=== PATIENT | female | born 1950 | race Caucasian/White ===

== ENCOUNTER 2023-10-04 17:21 | Outpatient (CLI) | payer MEDICARE, SELFPAY | END 2023-10-04 17:22 | disposition home or self-care (01) | LOC: AMB 10-05 13:32 | PROVIDERS: PCP Family Medicine; Visit Provider Emergency Medicine Emergency Medical Services | DX: R53.1 Weakness (principal) | CPT/HCPCS: A0998 ==

== ENCOUNTER 2023-10-05 08:02 | Outpatient (CLI) | payer MEDICARE, SELFPAY | END 2023-10-05 08:03 | disposition home or self-care (01) | LOC: AMB 10-06 09:44 | PROVIDERS: PCP Family Medicine; Visit Provider Family Medicine | DX: M54.2 Cervicalgia (principal); R53.1 Weakness | CPT/HCPCS: A0425; A0427 ==

== ENCOUNTER 2023-10-05 08:37 | Inpatient (IN) | payer MEDICARE, SELFPAY ==
[2023-10-05] VITALS (23 sets, daily range): BP systolic 127–188; BP diastolic 48–86; PULSE 61–88; RESP 18–24; TEMP 36.7–37.5; O2SAT 92–100; BMI 41.6; BMI 43.9
--- NOTE | 2023-10-05 | CRLHL7_ITS ---
For Patients: As a result of the Century Cures Act, medical imaging exams and procedure reports are released immediately into your electronic medical record. You may view this report before your referring provider. If you have questions, please contact your health care provider. Indication: Falls. Unfocused gaze. Technique: MRI Head: Performed before and after IV gadolinium. MRA Head: Performed without IV contrast. MRA Neck: Performed before and after IV gadolinium. Contrast: 20 cc DOTAREM. Comparison: CT head from earlier on 10/05/2023. Findings: MRI Head: There is a large zone of T2 signal change and diffusion restriction involving the cortex of the right frontal operculum and anterior insula as well as the right basal ganglia and gao radiata, measuring at least 40 mm and typical for an acute infarct within the right MCA distribution. There is a 25 mm band of susceptibility artifact in the right lateral basal ganglia consistent with acute hemorrhage. There is no global mass effect at this time. Background moderate small vessel ischemic changes, moderate cerebral atrophy and mild atrophy of the cerebellum. No abnormal contrast enhancement involving the brain parenchyma, meninges, calvarium or skull base. Grossly normal flow voids are maintained in the directly imaged intracranial vascular structures. The craniovertebral junction is unremarkable, with a patent foramen magnum. Both temporal bones are clear. There is slight membrane thickening in the ethmoid paranasal sinuses. MRA Head: The study is considerably degraded by patient motion. Coupled with the gadolinium-enhanced images from the MRA neck exam, no proximal intracranial arterial occlusion/filling defect is definitively identified. No evidence for aneurysm or vascular malformation on this study. MRA Neck: Mild atheromatous change at both carotid bifurcations. No evidence for hemodynamically significant internal carotid artery stenosis by NASCET criteria. The cervical segments of both vertebral arteries are patent, but with potentially high-grade stenoses at the origin of both vessels. The visualized portions of the aortic arch, great vessel origins and proximal subclavian arteries are otherwise unremarkable. I called and discussed the findings of all [address] Haynes and Dr. Kendall on 10/05/2023 between 1325 and 1340 hours. Impression: MRI Head: 1. There is a large 40 mm acute infarction involving the frontal operculum, the insular lobe, the lateral basal ganglia and the gao radiata in the right hemisphere. 2. A 25 mm band of acute hemorrhage is seen in the right lateral basal ganglia. This could represent conglomerate petechial hemorrhage or an evolving space-occupying hemorrhage. 3. No global mass effect at this time. 4. Background small vessel ischemic changes and parenchymal atrophy. MRA Head: 1. Motion degraded exam. 2. No gross evidence for proximal intracranial arterial occlusion. MRA Neck: 1. No evidence for hemodynamically significant ICA stenosis by NASCET criteria. 2. No evidence for carotid or vertebral artery dissection in the neck. 3. Apparent stenoses at the origin of both vertebral arteries, potentially high-grade. Dictated by Shon Mccoy MD @ 10/05/2023 1:39:51 PM (Electronically Signed)
--- NOTE | 2023-10-05 09:17 | CRLHL7_ITS ---
For Patients: As a result of the Century Cures Act, medical imaging exams and procedure reports are released immediately into your electronic medical record. You may view this report before your referring provider. If you have questions, please contact your health care provider. INDICATION: Fall TECHNIQUE: CT cervical spine without contrast. COMPARISON: None. FINDINGS: Vertebrae: Reversal of expected cervical lordosis. Degenerative grade 1 anterolisthesis of C4 on C5. Mild retrolisthesis of C5 on 6. There are no fractures or suspicious bony lesions. Discs and facet joints: There are diffuse advanced degenerative changes in the disc spaces and facet joints. Moderate degenerative spinal canal stenosis at C5-C6. Multilevel neural foraminal stenosis muscle with moderate to severe bilaterally at C5-C6, and severe left at C6-7. Extraspinal findings: Paraspinous soft tissues are unremarkable. IMPRESSION: 1. No sign of acute cervical spine fracture. 2. Advanced multilevel degenerative spondylosis. 3. Moderate degenerative spinal canal stenosis at C5-C6. In the setting of trauma finding places patient wrist for cord contusion. If there is clinical concern for this consider MRI. Please note that all CT scans at this facility use dose modulation, iterative reconstruction, and/or weight-based dosing when appropriate to reduce radiation dose to as low as reasonably achievable. Dictated by Jose Enrique Gillis MD @ 10/05/2023 11:27:41 AM (Electronically Signed)
--- NOTE | 2023-10-05 09:17 | CRLHL7_ITS ---
For Patients: As a result of the Century Cures Act, medical imaging exams and procedure reports are released immediately into your electronic medical record. You may view this report before your referring provider. If you have questions, please contact your health care provider. INDICATION: fall TECHNIQUE: Head CT without contrast. COMPARISON: None. FINDINGS: Large hyperdensity centered within the right putamen and gao radiata with extension into the right centrum semiovale. There is also blurring of the right insular ribbon. Finding is age indeterminate as there is no prior comparisons but there is concern for acute/subacute infarct. There is subtle internal hyperdensity within the right putamen which may represent punctate petechial hemorrhagic conversion versus artifact. Periventricular and subcortical white matter lucencies likely relate to chronic microvascular ischemic changes. Mild global parenchymal volume loss. No extra-axial fluid collection. No midline shift. Patent basal cisterns. The visualized paranasal sinuses and mastoid air cells demonstrate no acute or significant findings. The visualized orbits are grossly unremarkable. No skull fractures. IMPRESSION: Large hyperdensity centered within the right putamen and gao radiata with extension into the right centrum semiovale. There is also blurring of the right insular ribbon. Finding is age indeterminate as there is no prior comparisons but there is concern for acute/subacute infarct. There is subtle internal hyperdensity within the right putamen which may represent punctate petechial hemorrhagic conversion versus artifact. Cannot exclude underlying lesion. Recommend MRI to further evaluate. Findings discussed with Dr. Sheffield at 11:20 am. Please note that all CT scans at this facility use dose modulation, iterative reconstruction, and/or weight-based dosing when appropriate to reduce radiation dose to as low as reasonably achievable. Dictated by Jose Enrique Gillis MD @ 10/05/2023 11:23:36 AM (Electronically Signed)
--- NOTE | 2023-10-05 09:20 | CRLHL7_ITS ---
For Patients: As a result of the Century Cures Act, medical imaging exams and procedure reports are released immediately into your electronic medical record. You may view this report before your referring provider. If you have questions, please contact your health care provider. Indication: Falls. Unfocused gaze. Technique: MRI Head: Performed before and after IV gadolinium. MRA Head: Performed without IV contrast. MRA Neck: Performed before and after IV gadolinium. Contrast: 20 cc DOTAREM. Comparison: CT head from earlier on 10/05/2023. Findings: MRI Head: There is a large zone of T2 signal change and diffusion restriction involving the cortex of the right frontal operculum and anterior insula as well as the right basal ganglia and gao radiata, measuring at least 40 mm and typical for an acute infarct within the right MCA distribution. There is a 25 mm band of susceptibility artifact in the right lateral basal ganglia consistent with acute hemorrhage. There is no global mass effect at this time. Background moderate small vessel ischemic changes, moderate cerebral atrophy and mild atrophy of the cerebellum. No abnormal contrast enhancement involving the brain parenchyma, meninges, calvarium or skull base. Grossly normal flow voids are maintained in the directly imaged intracranial vascular structures. The craniovertebral junction is unremarkable, with a patent foramen magnum. Both temporal bones are clear. There is slight membrane thickening in the ethmoid paranasal sinuses. MRA Head: The study is considerably degraded by patient motion. Coupled with the gadolinium-enhanced images from the MRA neck exam, no proximal intracranial arterial occlusion/filling defect is definitively identified. No evidence for aneurysm or vascular malformation on this study. MRA Neck: Mild atheromatous change at both carotid bifurcations. No evidence for hemodynamically significant internal carotid artery stenosis by NASCET criteria. The cervical segments of both vertebral arteries are patent, but with potentially high-grade stenoses at the origin of both vessels. The visualized portions of the aortic arch, great vessel origins and proximal subclavian arteries are otherwise unremarkable. Impression: MRI Head: 1. There is a large 40 mm acute infarction involving the frontal operculum, the insular lobe, the lateral basal ganglia and the gao radiata in the right hemisphere. 2. A 25 mm band of acute hemorrhage is seen in the right lateral basal ganglia. This could represent conglomerate petechial hemorrhage or an evolving space-occupying hemorrhage. 3. No global mass effect at this time. 4. Background small vessel ischemic changes and parenchymal atrophy. MRA Head: 1. Motion degraded exam. 2. No gross evidence for proximal intracranial arterial occlusion. MRA Neck: 1. No evidence for hemodynamically significant ICA stenosis by NASCET criteria. 2. No evidence for carotid or vertebral artery dissection in the neck. 3. Apparent stenoses at the origin of both vertebral arteries, potentially high-grade. Dictated by Shon Mccoy MD @ 10/05/2023 1:35:03 PM (Electronically Signed)
--- NOTE | 2023-10-05 09:23 | ED_ITS ---
HPI - General Adult General Chief complaint: Fall/Minor Trauma Stated complaint: fall Time Seen by Provider: 10/05/23 09:07 History of Present Illness HPI narrative: Patient is a 73-year-old female was brought in by ambulance for a fall today and could not get up in her bathroom. She reports that she laid there for many hours prior to her daughter coming this morning an ambulance being called. She has had trouble with balance recently and chronically. Yesterday she fell and had some back discomfort but that improved she has had a fusion in her low back. She did not want to come to the hospital, her daughter reports that she had some garbled speech in seemed little confused when this happened. That seemed to improve. She had no focal neurologic deficit although the balance issue has been persistent and intermittent over the last several months. She denies any chest pain, breathing problem, fever chills weakness. She has no chart record here. Her daughter reports that she is very sedentary. She reports she has had ?bad back in bed knees. 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 Dyslipidemia. Hypertension. Current meds include Tylenol, albuterol, aspirin, atorvastatin, bupropion, clopidogrel , Celebrex B12 Ferrous sulfate Prozac Lasix [place] as needed Loperamide No metoprolol Provigil Nitrostat as needed Ditropan XL Aldactone Trazodone Related Data Home Medications Medication Instructions Recorded Confirmed albuterol sulfate 90 mcg/actuation 1 - 2 puff inhalation Q4H PRN 10/05/23 10/05/23 aerosol inhaler dyspnea atorvastatin 40 mg tablet 40 mg PO DAILY 10/05/23 10/05/23 bupropion HCl 300 mg 24 hr tablet, 300 mg PO DAILY 10/05/23 10/05/23 extended release celecoxib 200 mg capsule 200 mg PO DAILY 10/05/23 10/05/23 clopidogrel 75 mg tablet 75 mg PO DAILY 10/05/23 10/05/23 ferrous sulfate 324 mg (65 mg 324 mg PO DAILY 10/05/23 10/05/23 iron) tablet,delayed release fluoxetine 20 mg capsule 60 mg PO QAM 10/05/23 10/05/23 metoprolol tartrate 50 mg tablet 50 mg PO BID 10/05/23 10/05/23 modafinil 100 mg tablet 100 mg PO DAILY 10/05/23 10/05/23 oxybutynin chloride 10 mg 10 mg PO DAILY 10/05/23 10/05/23 tablet,extended release 24 hr spironolactone 50 mg tablet 50 mg PO DAILY 10/05/23 10/05/23 trazodone 100 mg tablet 100 mg PO QPM 10/05/23 10/05/23 Allergies Allergy/AdvReac Type Severity Reaction Status Date / Time No Known Drug Allergies Allergy Verified 10/05/23 08:53 Review of Systems Status of ROS: Reports: 10 or more systems reviewed and unremarkable except as noted in History and below [facility] Medical History (Updated 10/05/23 @ 15:18 by Radha Ellington PA-C) Thoracic aortic ectasia ?I77.810 - Thoracic aortic ectasia (ICD-10) Surgical History (Updated 10/05/23 @ 15:15 by Radha Ellington PA-C) S/P gastric bypass ?Z98.84 - Bariatric surgery status (ICD-10) Social History Problems where you live: unable to answer Smoking Status: Unknown if ever smoked How often do you have a drink containing alcohol: never How often do you have six or more drinks on one occasion: Never AUDIT-C Alcohol total score: 0 Non-prescribed substance use: denies use Exam Narrative: Exam Narrative: Objective: Vital signs show low-grade temperature 99.5? Other vital signs unremarkable, O2 sat is 96% on room air HEENT shows no facial asymmetry pupils react to light extra movements intact Neck is supple Back exam shows postoperative scar but no obvious redness or bruising, she is able to set up, she has no midline neck tenderness. Pulses regular heart rhythm regular 2/6 out murmur occasional ectopic beat Abdomen obese benign nontender Pelvis stable moves her flexes extends her legs with passive motion well without difficulty distal CMS normal in the lower extremities Neurologic normal strength sensation upper and lower extremities no weakness noted Const: Vital Signs, click to edit/add: Vital Signs - 24 hr 10/05/23 08:53 10/05/23 10:33 10/05/23 10:58 Temperature 99.5 F Pulse Rate 66 Pulse Rate [Pulse Oximeter] 87 Respiratory Rate 20 Blood Pressure 161/80 H Blood Pressure [Le ft Upper Arm] 144/75 H Pulse Oximetry 96 96 Oxygen Delivery Me thod Room Air 10/05/23 10:59 10/05/23 11:00 10/05/23 11:03 Temperature Pulse Rate 63 66 Pulse Rate [Pulse Oximeter] Respiratory Rate Blood Pressure 188/84 H Blood Pressure [Le ft Upper Arm] Pulse Oximetry 97 98 96 Oxygen Delivery Me thod 10/05/23 11:03 10/05/23 11:15 10/05/23 12:46 Temperature Pulse Rate 61 64 78 Pulse Rate [Pulse Oximeter] Respiratory Rate Blood Pressure 180/82 H Blood Pressure [Le ft Upper Arm] Pulse Oximetry 96 94 97 Oxygen Delivery Me thod 10/05/23 12:50 10/05/23 13:00 10/05/23 13:13 Temperature Pulse Rate 65 74 79 Pulse Rate [Pulse Oximeter] Respiratory Rate Blood Pressure 139/64 156/79 H Blood Pressure [Le ft Upper Arm] Pulse Oximetry 97 96 96 Oxygen Delivery Me thod 10/05/23 13:21 10/05/23 13:23 10/05/23 13:30 Temperature Pulse Rate 76 82 80 Pulse Rate [Pulse Oximeter] Respiratory Rate Blood Pressure 150/74 H 153/48 H Blood Pressure [Le ft Upper Arm] Pulse Oximetry 97 98 92 Oxygen Delivery Me thod 10/05/23 13:42 10/05/23 13:43 Temperature Pulse Rate 73 81 Pulse Rate [Pulse Oximeter] Respiratory Rate Blood Pressure 163/76 H Blood Pressure [Le ft Upper Arm] Pulse Oximetry 96 98 Oxygen Delivery Me thod Course Vital Signs Vital signs: Initial Vital Signs Temperature 99.5 F 10/05/23 08:53 Temperature Source Temporal Artery Scan 10/05/23 08:53 Pulse Rate 87 10/05/23 08:53 Respiratory Rate 20 10/05/23 08:53 Blood Pressure 144/75 H 10/05/23 08:53 Blood Pressure Mean 98 10/05/23 08:53 Pulse Oximetry 96 10/05/23 08:53 Oxygen Delivery Method Room Air 10/05/23 08:53 Vital Signs Temperature 99.5 F 10/05/23 08:53 Pulse Rate 87 10/05/23 08:53 Respiratory Rate 20 10/05/23 08:53 Blood Pressure 144/75 H 10/05/23 08:53 Pulse Oximetry 96 10/05/23 08:53 Oxygen Delivery Method Room Air 10/05/23 08:53 Temperature 99.5 F 10/05/23 08:53 Pulse Rate 81 10/05/23 13:43 Respiratory Rate 20 10/05/23 08:53 Blood Pressure 163/76 H 10/05/23 13:42 Pulse Oximetry 98 10/05/23 13:43 Oxygen Delivery Method Room Air 10/05/23 08:53 Medications Administered Medications: Discontinued Medications Generic Name Dose Route Start Last Admin Trade Name Freq PRN Reason Stop Dose Admin Aspirin 324 mg 10/05/23 13:18 10/05/23 13:22 Aspirin 81 Mg Tab.Chew PO 10/05/23 13:19 324 mg ONCE ONE Administration Sodium Chloride 500 mls @ 500 mls/hr 10/05/23 09:17 10/05/23 14:16 0.9 % Sodium Chloride 500 Ml IV 10/05/23 10:16 Infused .Q1H ONE Infusion Medical Decision Making MDM Narrative Medical decision making narrative: 73-year-old female with episode yesterday of fall, chronic imbalance, some garb led speech and confusion briefly yesterday, and a fall today with imbalance unable to get up and has been down for an unknown period of time. At this point will attempt to get some old records for her, patient will get CT scan of the head and probably an MRI MRA of the head neck to rule out ischemia or stroke. Would also do laboratory studies chemistries, troponin, urinalysis, COVID/influenza/RSV. Will give some IV fluid. Disposition pending findings. I suspect the patient may need admission the hospital for observation and potential more formal placement. The patient also get an x-ray of her back. Of note is her EKG by my read shows normal sinus rhythm no acute ST T wave changes Addendum Fili 40 1:00 a.m.: Patient is in sinus rhythm, her CT scan of her neckt no obvious fracture, some mild central stenosis to moderate at C5-6. The patient has CT findings of a large hyperdensity centered in the right putamen and gao radiata extension the right centrum semiovale blurring of the right insular ribbon indeterminate findings but may represent acute or subacute infarct per Radiology. There is also some petechial changes in the putamen. Will consult was Stroke Neuro Radiology. Will also get a MRI MRA of the head neck. Disposition pending stroke neurology's recommendations. Given the last known well was before her fall yesterday with a garbled speech she would be or about a day or more from the onset of her symptoms. She is somewhat somnolent but awake and alert. Has no focal neurologic deficit. Addendum 1:22 p.m.: Discussed with Stroke Neurology Dr. aguilar, who reviewed the patient's care, did a tele stroke consult and reviewed the CT and MRI reports. He felt that simply full-dose aspirin now in addition to her usual medications which she has been taking some aspirin would be appropriate. Admission for telemetry, monitoring over the next 24 hours, echocardiogram, and observation would be appropriate. Likely outpatient follow-up with Neurology. He felt there was no intervention currently at [facility] that could be offered given the duration of the symptoms from yesterday morning. Will discuss with our hospitalist team here regarding hospitalization. Her back x-ray shows a 5th lumbar fusion and no obvious compression fractures or fusion disruption Addendum 1:39 p.m. stroke neurology recommended aspirin based on MRI and CT findings. Dr. Webb in who is neuro radiologist felt there might be some punctate hemorrhage as well as ischemic stroke. He did relay that to Stroke Neurology. And recommended admission and observation per Stroke Neurology. Will discuss with the hospitalist team thanks Lab Data Labs: Lab Results 10/05/23 10/05/23 Range/Units 09:18 10:33 WBC 15.91 H (4.50-11.00) K/uL RBC 4.38 (4.00-5.20) m/uL Hgb 13.5 (12.0-16.0) gm/dL Hct 42.6 (33.0-51.0) % MCV 97 (80-100) fL MCH 31 (26-34) pg MCHC 32 (32-36) gm/dL RDW Coeff of Yaron 12.9 (11.5-15.5) % Plt Count 224 (140-440) K/uL Neut % (Auto) 84.8 H (42.0-72.0) % Lymph % (Auto) 11.1 L (20-44) % Mineral % (Auto) 3.5 (0.0-11.0) % Eos % (Auto) 0.1 (0.0-7.0) % Baso % (Auto) 0.2 (0.0-3.0) % Neut # (Auto) 13.50 H (1.7-7.0) K/uL Lymph # (Auto) 1.80 (0.90-2.90) K/uL Mineral # (Auto) 0.60 (0.00-0.90) K/UL Eos # (Auto) 0.00 (0.00-0.50) K/uL Baso # (Auto) 0.00 (0.00-0.30) K/uL Abs Immat Gran (auto) 0.00 (0.00-0.30) K/uL Imm/Tot Granulo (auto) 0.3 % INR 0.98 (0.91-1.10) APTT 22 L (23-33) Seconds Sodium 142 (135-149) mmol/L Potassium 3.7 (3.6-5.1) mmol/L Chloride 105 (96-114) mmol/L Carbon Dioxide 26 (20-32) mmol/L Anion Gap 11 (7-15) mEq/L BUN 15 (7-30) mg/dL Creatinine 0.6 (0.5-1.5) mg/dL Estimated Creat Clear 44.41 Estimated GFR 94 ml/min Glucose 133 H (60-115) mg/dL Calcium 9.2 (8.4-10.6) mg/dL Total Bilirubin 1.1 (0.1-1.5) mg/dL Direct Bilirubin 0.0 (0.0-0.5) mg/dL AST 35 (12-35) U/L ALT 20 (4-35) U/L Alkaline Phosphatase 122 (40-150) U/L Troponin I < 0.01 L (0.01-0.04) ng/mL C-Reactive Protein 0.9 (0.5-1.0) mg/dL NT-Pro-B Natriuret Pep 1180 pg/mL Total Protein 7.4 (6.0-8.3) g/dL Albumin 4.7 (3.3-5.0) g/dL Ethyl Alcohol < 0.01 L (0.01-0.03) % SARS-CoV-2 (PCR) Negative SARS-CoV-2 (Negative) Influenza Type A (PCR) Negative PCR FLU A (Negative) Influenza Type B (PCR) Negative PCR FLU B (Negative) RSV (PCR) Negative PCR RSV (Negative) Discharge Plan Discharge Clinical Impression: Imbalance, Falls, Stroke Patient Disposition: Admitted As Inpatient Condition: Stable
--- NOTE | 2023-10-05 09:25 | CRLHL7_ITS ---
For Patients: As a result of the Century Cures Act, medical imaging exams and procedure reports are released immediately into your electronic medical record. You may view this report before your referring provider. If you have questions, please contact your health care provider. INDICATION: X COMPARISON: None. TECHNIQUE: Two view lumbar spine radiographs including AP, lateraldelete back. FINDINGS: There are 5 lumbar type vertebral bodies. L4-5 posterior instrumented fusion with bilateral pedicle screws and paired vertical rods. Hardware appears in place. Interbody devices seen in the post posterior aspect of the L4-5 interspace. No acute fracture or dislocation. No listhesis. Gentle leftward spinal curvature. Multilevel disc space narrowing and facet arthropathy The included portions of the sacroiliac joints are normal. Normal bone mineralization. No focal bone lesions. Surgical clips bilateral upper abdomen. Anastomotic sutures near the expected location of the gastroesophageal junction. IMPRESSION: Postop lumbar spine with degenerative change as above. No acute fracture or dislocation seen. Dictated by Paulina Chaudhry MD @ 10/05/2023 1:59:15 PM (Electronically Signed)
--- NOTE | 2023-10-05 10:16 | ED.NURSE ---
Went into room to start an IV. Patient is snoring and rouses to loud verbal stimulus then falls back asleep. Did complete brief neuro assessment with no abnormal finding other than decreased LOC. MD notified and into see patient. Will continue to monitor.
[2023-10-05 10:34] LABS: PCR FLU A Negative PCR FLU A (Negative); PCR FLU B Negative PCR FLU B (Negative); PCR RSV Negative PCR RSV (Negative)
[2023-10-05 10:35] LABS: SARS PCR* Negative SARS-CoV-2 (Negative)
[2023-10-05] MEDS: 0.9 % SODIUM CHLORIDE 500 ML 500 ML IV (10:40)
[2023-10-05 10:46] LABS: Basophils Percent Auto 0.2 % (0.0-3.0); Eosinophils Percent Auto 0.1 % (0.0-7.0); Hematocrit 42.6 % (33.0-51.0); Hemoglobin* 13.5 gm/dL (12.0-16.0); Immature Granulocytes Pct Auto 0.3 %; Lymphocytes Percent Auto 11.1 % (20-44); Mean Corpuscular HGB Conc 32 gm/dL (32-36); Mean Corpuscular Hemoglobin 31 pg (26-34); Mean Corpuscular Volume 97 fL (80-100); Monocytes Percent Auto 3.5 % (0.0-11.0); Neutrophils Percent Auto 84.8 % (42.0-72.0); Platelet Count* 224 K/uL (140-440); RDW Coefficient of Variation % 12.9 % (11.5-15.5); Red Blood Count 4.38 m/uL (4.00-5.20); White Blood Count* 15.91 K/uL (4.50-11.00)
[2023-10-05 10:49] LABS: Slide Review Reflex No
[2023-10-05 11:04] LABS: Albumin* 4.7 g/dL (3.3-5.0)
[2023-10-05 11:05] LABS: Chloride* 105 mmol/L (96-114)
[2023-10-05 11:06] LABS: Potassium* 3.7 mmol/L (3.6-5.1); Sodium* 142 mmol/L (135-149)
[2023-10-05 11:07] LABS: Alkaline Phosphatase* 122 U/L (40-150); Aspartate Amino Transferase* 35 U/L (12-35); Bilirubin Total* 1.1 mg/dL (0.1-1.5); Total Protein* 7.4 g/dL (6.0-8.3)
[2023-10-05 11:08] LABS: Alanine Aminotransferase* 20 U/L (4-35); Creatinine* 0.6 mg/dL (0.5-1.5); Est. Creatinine Clearance* 44.41; Estimated Glomerular Filt Rate 94 ml/min
[2023-10-05 11:09] LABS: Anion Gap 11 mEq/L (7-15); Blood Urea Nitrogen* 15 mg/dL (7-30); Calcium* 9.2 mg/dL (8.4-10.6); Carbon Dioxide* 26 mmol/L (20-32); Glucose* 133 mg/dL (60-115); INR 0.98 (0.91-1.10); Partial Thromboplastin Time* 22 Seconds (23-33); Prothrombin Time 13.6 Seconds
[2023-10-05 11:12] LABS: C Reactive Protein* 0.9 mg/dL (0.5-1.0)
[2023-10-05 11:14] LABS: Ethanol* < 0.01 % (0.01-0.03)
[2023-10-05 11:19] LABS: NT Pro B Type NatriureticPept* 1180 pg/mL; Troponin I* < 0.01 ng/mL (0.01-0.04)
--- NOTE | 2023-10-05 12:33 | ED.NURSE ---
pt unavailable, in radiology getting MRI done.
[2023-10-05] MEDS: ASPIRIN 81 MG TAB.CHEW 324 MG PO (13:22)
--- NOTE | 2023-10-05 14:18 | ED.NURSE ---
Patient handled 6 ounces of water without signs of difficulty. Patient wanted to walk to bathroom, required assist of one and seems unaware of her limitations though did call for assistance.
--- NOTE | 2023-10-05 14:45 | ED.NURSE ---
pt report given off to Yapmovirgen PRUITT
--- NOTE | 2023-10-05 14:46 | PM.IMHP1 ---
Hospitalist- H&P: ASTRID History of Present Illness Date Seen: 10/05/23 Chief complaint: fall Narrative: Magaly Dee is a 73 year old female past medical history significant for CAD, hypertension venous insufficiency, atherosclerosis coronary status post stent x5, failure with preserved ejection fraction, CKD stage II, obesity, iron deficiency anemia, GERD, diffuse large B-cell lymphoma, depression, osteoarthritis, sleep apnea no longer using CPAP, status post lumbar fusion, status post gastric bypass is admitted for observation and further workup CVA. Patient is seen with daughter at bedside. She had a fall yesterday causing some back pain which has since improved. EMS did respond to that fall yesterday however patient declined transport to the ED for evaluation. Patient fell again in the middle of the night and was unable to get up off the floor. She tells me that since her wrist fracture and repair in March, her left wrist has remained too weak and sore for her to put much weight on it. Therefore, patient lied on the floor until her daughter found her this morning and was able to call EMS for her. Her daughter had noticed some garbled speech as well as a slight droop of the left side of her lip. In the ED, multiple imaging was completed with the head MRA showing a large acute infarction involving the frontal operculum, the insular lobe, the lateral basal ganglia and the gao radiata in the right hemisphere. also noted is a band of acute hemorrhage seen in the right lateral basal ganglia which could represent conglomerate petechial hemorrhage or an evolving space-occupying hemorrhage. These findings were discussed with tele stroke neurology and Neuro Radiology. Recommendations were made for local admission for observation and further workup. Also recommended to continue daily aspirin and Plavix despite findings of hemorrhage. Currently, patient admits to a slight frontal headache. Denies dizziness currently however reports issues with balance over the last several months. she denies falls other than Those occurring in the past 2 days as well as in March resulting in her left wrist fracture. she denies chest pain or shortness of breath. Denies recent fevers chills sweats. Denies recent nausea, vomiting, diarrhea. Patient recently moved to [place] from [place] and is living independently in an apartment with 6 steps. She uses a walker and cane most times at home, though not 100%. Her daughter is now considering a lifeline for her. She reports being mostly compliant with her medications though has missed some pills on occasion. Nonsmoker having quit several years ago. Admits to rare alcohol use. Review of Systems Narrative: REVIEW OF SYSTEMS: Complete review of systems performed and negative unless otherwise stated in HPI or below. [facility] Medical History (Updated 10/05/23 @ 16:44 by Radha Ellington PA-C) Thoracic aortic ectasia ?I77.810 - Thoracic aortic ectasia (ICD-10) Surgical History (Updated 10/05/23 @ 15:15 by Radha Ellington PA-C) S/P gastric bypass ?Z98.84 - Bariatric surgery status (ICD-10) Social History Problems where you live: unable to answer Smoking Status: Unknown if ever smoked How often do you have a drink containing alcohol: never How often do you have six or more drinks on one occasion: Never AUDIT-C Alcohol total score: 0 Non-prescribed substance use: denies use Meds Home Medications and Allergies Home Medications Medication Instructions Recorded Confirmed Type albuterol sulfate 90 mcg/actuation 1 - 2 puff inhalation Q4H PRN 10/05/23 10/05/23 History aerosol inhaler dyspnea aspirin 81 mg tablet,delayed 81 mg PO DAILY 10/05/23 10/05/23 History release atorvastatin 40 mg tablet 40 mg PO DAILY 10/05/23 10/05/23 History bupropion HCl 300 mg 24 hr tablet, 300 mg PO DAILY 10/05/23 10/05/23 History extended release celecoxib 200 mg capsule 200 mg PO DAILY 10/05/23 10/05/23 History clopidogrel 75 mg tablet 75 mg PO DAILY 10/05/23 10/05/23 History ferrous sulfate 324 mg (65 mg 324 mg PO DAILY 10/05/23 10/05/23 History iron) tablet,delayed release fluoxetine 20 mg capsule 60 mg PO QAM 10/05/23 10/05/23 History metoprolol tartrate 50 mg tablet 50 mg PO BID 10/05/23 10/05/23 History modafinil 100 mg tablet 100 mg PO DAILY 10/05/23 10/05/23 History oxybutynin chloride 10 mg 10 mg PO DAILY 10/05/23 10/05/23 History tablet,extended release 24 hr spironolactone 50 mg tablet 50 mg PO DAILY 10/05/23 10/05/23 History trazodone 100 mg tablet 100 mg PO QPM 10/05/23 10/05/23 History Allergies Allergy/AdvReac Type Severity Reaction Status Date / Time No Known Drug Allergies Allergy Verified 10/05/23 08:53 Exam Narrative: Exam Narrative: PHYSICAL EXAM General: Pleasant, Very sleepy but awakens for questioning, NAD otherwise HEENT: Normocephalic, atraumatic, sclera white, EOMI, oral mucosa moist Cardiovascular: RRR, S1S2. No pitting edema Pulmonary: CTA bilaterally without rhonchi, rales, expiratory wheezes. No dyspnea Abdominal: Soft, nondistended, NTTP Neurological: sleepy, easily awakens, answering questions appropriately. Very slight left lip droop. 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 Extremities: No gross joint deformity or swelling. AROMI. Neurovascularly intact Skin: Warm, dry. Const: Vital Signs, click to edit/add: Vital Signs - 24 hr 10/05/23 08:53 10/05/23 10:33 10/05/23 10:58 Temperature 99.5 F Pulse Rate 66 Pulse Rate [Pulse Oximeter] 87 Respiratory Rate 20 Blood Pressure 161/80 H Blood Pressure [Le ft Upper Arm] 144/75 H Pulse Oximetry 96 96 Oxygen Delivery Me od Room Air 10/05/23 10:59 10/05/23 11:00 10/05/23 11:03 Temperature Pulse Rate 63 66 Pulse Rate [Pulse Oximeter] Respiratory Rate Blood Pressure 188/84 H Blood Pressure [Le ft Upper Arm] Pulse Oximetry 97 98 96 [facility] 11:03 10/05/23 11:15 10/05/23 12:46 Temperature Pulse Rate 61 64 78 Pulse Rate [Pulse Oximeter] Respiratory Rate Blood Pressure 180/82 H Blood Pressure [Le ft Upper Arm] Pulse Oximetry 96 94 97 [facility] 10/[facility]/23 12:50 10/05/23 13:00 10/05/23 13:13 Temperature Pulse Rate 65 74 79 Pulse Rate [Pulse Oximeter] Respiratory Rate Blood Pressure 139/64 156/79 H Blood Pressure [Le ft Upper Arm] Pulse Oximetry 97 96 96 Oxygen Delivery [facility] 10/05/23 13:21 10/05/23 13:23 10/05/23 13:30 Temperature Pulse Rate 76 82 80 Pulse Rate [Pulse Oximeter] Respiratory Rate Blood Pressure 150/74 H 153/48 H Blood Pressure [Le ft Upper Arm] Pulse Oximetry 97 98 92 [facility] 10/05/23 13:42 10/05/23 13:43 Temperature Pulse Rate 73 81 Pulse Rate [Pulse Oximeter] Respiratory Rate Blood Pressure 163/76 H Blood Pressure [Le ft Upper Arm] Pulse Oximetry 96 98 Oxygen Delivery [facility] Hospitalist - H&P: Result Labs Labs: Short CBC 10/05/23 Range/Units 10:33 WBC 15.91 H (4.50-11.00) K/uL Hgb 13.5 (12.0-16.0) gm/dL Hct 42.6 (33.0-51.0) % Plt Count 224 (140-440) K/uL BMP 10/05/23 10:33 Sodium 142 Potassium 3.7 Chloride 105 Carbon Dioxide 26 BUN 15 Creatinine 0.6 Glucose 133 H Calcium 9.2 Cardiac Enzymes 10/05/23 Range/Units 10:33 Troponin I < 0.01 L (0.01-0.04) ng/mL Liver Function 10/05/23 Range/Units 10:33 Total Bilirubin 1.1 (0.1-1.5) mg/dL Direct Bilirubin 0.0 (0.0-0.5) mg/dL AST 35 (12-35) U/L ALT 20 (4-35) U/L Alkaline Phosphatase 122 (40-150) U/L Albumin 4.7 (3.3-5.0) g/dL ECG Attestation: I personally reviewed and interpreted this ECG as follows: ( NSR, ventricular rate 61) Imaging MR Brain: Radiologist's impression: MRI Head: There is a large zone of T2 signal change and diffusion restriction involving the cortex of the right frontal operculum and anterior insula as well as the right basal ganglia and gao radiata, measuring at least 40 mm and typical for an acute infarct within the right MCA distribution. There is a 25 mm band of susceptibility artifact in the right lateral basal ganglia consistent with acute hemorrhage. There is no global mass effect at this time. Background moderate small vessel ischemic changes, moderate cerebral atrophy and mild atrophy of the cerebellum. No abnormal contrast enhancement involving the brain parenchyma, meninges, calvarium or skull base. Grossly normal flow voids are maintained in the directly imaged intracranial vascular structures. The craniovertebral junction is unremarkable, with a patent foramen magnum. Both temporal bones are clear. There is slight membrane thickening in the ethmoid paranasal sinuses. MRA Head: The study is considerably degraded by patient motion. Coupled with the gadolinium-enhanced images from the MRA neck exam, no proximal intracranial arterial occlusion/filling defect is definitively identified. No evidence for aneurysm or vascular malformation on this study. MRA Neck: Mild atheromatous change at both carotid bifurcations. No evidence for hemodynamically significant internal carotid artery stenosis by NASCET criteria. The cervical segments of both vertebral arteries are patent, but with potentially high-grade stenoses at the origin of both vessels. The visualized portions of the aortic arch, great vessel origins and proximal subclavian arteries are otherwise unremarkable. I called and discussed the findings of all [address] Haynes and Dr. Kendall on 10/05/2023 between 1325 and 1340 hours. Impression: MRI Head: 1. There is a large 40 mm acute infarction involving the frontal operculum, the insular lobe, the lateral basal ganglia and the gao radiata in the right hemisphere. 2. A 25 mm band of acute hemorrhage is seen in the right lateral basal ganglia. This could represent conglomerate petechial hemorrhage or an evolving space-occupying hemorrhage. 3. No global mass effect at this time. 4. Background small vessel ischemic changes and parenchymal atrophy. MRA Head: 1. Motion degraded exam. 2. No gross evidence for proximal intracranial arterial occlusion. MRA Neck: 1. No evidence for hemodynamically significant ICA stenosis by NASCET criteria. 2. No evidence for carotid or vertebral artery dissection in the neck. 3. Apparent stenoses at the origin of both vertebral arteries, potentially high-grade. CT scan - head: Radiologist's impression: FINDINGS: Large hyperdensity centered within the right putamen and gao radiata with extension into the right centrum semiovale. There is also blurring of the right insular ribbon. Finding is age indeterminate as there is no prior comparisons but there is concern for acute/subacute infarct. There is subtle internal hyperdensity within the right putamen which may represent punctate petechial hemorrhagic conversion versus artifact. Periventricular and subcortical white matter lucencies likely relate to chronic microvascular ischemic changes. Mild global parenchymal volume loss. No extra-axial fluid collection. No midline shift. Patent basal cisterns. The visualized paranasal sinuses and mastoid air cells demonstrate no acute or significant findings. The visualized orbits are grossly unremarkable. No skull fractures. IMPRESSION: Large hyperdensity centered within the right putamen and gao radiata with extension into the right centrum semiovale. There is also blurring of the right insular ribbon. Finding is age indeterminate as there is no prior comparisons but there is concern for acute/subacute infarct. There is subtle internal hyperdensity within the right putamen which may represent punctate petechial hemorrhagic conversion versus artifact. Cannot exclude underlying lesion. Recommend MRI to further evaluate. Findings discussed with Dr. Sheffield at 11:[address]- Other: Radiologist's impression: CT C spine FINDINGS: Vertebrae: Reversal of expected cervical lordosis. Degenerative grade 1 anterolisthesis of C4 on C5. Mild retrolisthesis of C5 on 6. There are no fractures or suspicious bony lesions. Discs and facet joints: There are diffuse advanced degenerative changes in the disc spaces and facet joints. Moderate degenerative spinal canal stenosis at C5-C6. Multilevel neural foraminal stenosis muscle with moderate to severe bilaterally at C5-C6, and severe left at C6-7. Extraspinal findings: Paraspinous soft tissues are unremarkable. IMPRESSION: 1. No sign of acute cervical spine fracture. 2. Advanced multilevel degenerative spondylosis. 3. Moderate degenerative spinal canal stenosis at C5-C6. In the setting of trauma finding places patient wrist for cord contusion. If there is clinical concern for this consider MRI. Lumbar xray: Radiologist's impression: FINDINGS: There are 5 lumbar type vertebral bodies. L4-5 posterior instrumented fusion with bilateral pedicle screws and paired vertical rods. Hardware appears in place. Interbody devices seen in the post posterior aspect of the L4-5 interspace. No acute fracture or dislocation. No listhesis. Gentle leftward spinal curvature. Multilevel disc space narrowing and facet arthropathy The included portions of the sacroiliac joints are normal. Normal bone mineralization. No focal bone lesions. Surgical clips bilateral upper abdomen. Anastomotic sutures near the expected location of the gastroesophageal junction. IMPRESSION: Postop lumbar spine with degenerative change as above. No acute fracture or dislocation seen. Assessment and Plan Assessment and plan (1) Stroke: Problem comment: -MRA showing a large acute infarction involving the frontal operculum, the insular lobe, the lateral basal ganglia and the gao radiata in the right hemisphere along with band of acute hemorrhage seen in the right lateral basal ganglia which could represent conglomerate petechial hemorrhage or an evolving space-occupying hemorrhage. -per ED provider, as reviewed with Neuroradiology (Dr. Davenport) and TeleStroke service (Dr. Katz), recommending daily aspirin 81 mg (received 325 mg in ED) and continued Plavix (aware of hemorrhage) -echocardiogram ordered -lipids, hemoglobin A1c ordered -telemetry, neuro checks -PT, OT consults. Including recommendations for outpatient follow-up of balance issues -nurse bedside swallow evaluation, SENIOR TECHNICAL ANALYST for formal swallow eval -social services designee consult for discharge planning /needs, daughter with concerns of patient returning home alone -outpatient Neurology follow up recommended -repeat head CT at 6:00 p.m. 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 -followed by [facility] in [place] (last visit 07/07/2023). Next appointment is 10/07/23 -currently managed by surveillance with consideration of treatment options if she becomes symptomatic or has progressive cytopenia Status: Chronic (4) Anemia, iron deficiency: Problem comment: -stable, hemoglobin 13.5, managed with oral iron supplement. Continue to monitor Status: Chronic (5) Hypertension: Problem comment: -admission systolics <160 -given concern for hemorrhagic stroke, will continue current home medications, continuing to monitor blood pressure (target 140-160 mmHg) Status: Chronic (6) CAD (coronary artery disease): Problem comment: -with history of atherosclerosis of coronary artery, s/p 5 stents -continue Plavix and aspirin (patient admits not compliant with this) as recommended Status: Chronic (7) Heart failure with preserved ejection fraction: Problem comment: -patient stopped taking furosemide (doesn't like increased urination) -continue HCTZ -BNP 1180, ECHO ordered -strict I&Os, daily weights Status: Chronic (8) CKD (chronic kidney disease) stage 2, GFR 60-89 ml/min: Problem comment: -creatinine 0.6, continue to monitor Status: Chronic (9) Dyslipidemia: Problem comment: -MRA shows no evidence for hemodynamically significant ICA stenosis by NASCET criteria, no evidence for carotid or vertebral artery dissection in the neck, apparent stenoses at the origin of both vertebral arteries, potentially high-grade. -continue statin, consider increase to high-intensity - will confirm with stroke team Status: Chronic (10) Depression: Problem comment: -continue home medications Status: Acute Plan CODE: Full as discussed with patient and daughter, POLST reviewed VTE PPX: SCDs, Chemical prophylaxis contraindicated in active bleed Disposition: Observation, discharge pending completion of workup and clinical improvement
[2023-10-05 15:31] LABS: Magnesium* 2.2 mg/dL (1.5-2.6)
--- NOTE | 2023-10-05 18:00 | CRLHL7_ITS ---
For Patients: As a result of the Century Cures Act, medical imaging exams and procedure reports are released immediately into your electronic medical record. You may view this report before your referring provider. If you have questions, please contact your health care provider. INDICATION: Follow-up hemorrhagic infarct. COMPARISON: Same-day MRI and CT Head TECHNIQUE: CT of the brain/head without the use of IV contrast. Multiplanar axial, coronal, and sagittal reformats were reconstructed. FINDINGS: Evolving right MCA distribution infarct in a similar distribution compared to previous. There is hyperdensity within the putamen consistent with acute hemorrhage. Appearance is not appear appreciably different than the earlier CT head or brain MR. No new areas of infarct no mass, mass effect, or midline shift. The ventricles are normal in size and shape. No fracture or focal osseous lesion. The mastoid and middle ears are clear. The paranasal sinuses are clear. Included orbit and globe are normal. IMPRESSION: No substantial change compared to prior. Right MCA vascular distribution infarct with focal hemorrhage limited to the putamen. No substantial mass effect. Please note that all CT scans at this facility use dose modulation, iterative reconstruction, and/or weight-based dosing when appropriate to reduce radiation dose to as low as reasonably achievable. Dictated by Paulina Chaudhry MD @ 10/05/2023 7:12:30 PM (Electronically Signed)
--- NOTE | 2023-10-05 18:28 | PC.NURSE ---
Shift [id number]- Patient denies headache, dizziness, or lightheadedness. Upper right extremity, weak; lower extremities equal. No facial droop. Denies vision changes. She does seem somewhat slow to respond and responds minimally- though appropriate. She is up with walker, gait belt and assist of 1 and tolerates well.
[2023-10-05] MEDS: METOPROLOL TARTRATE 50 MG TABLET PO (21:28)
[2023-10-05] MEDS: TRAZODONE HCL 50 MG TABLET 100 MG PO (21:28)
[2023-10-05] MEDS: SODIUM CHLORIDE 0.9 % (FLUSH) 10 ML SYRINGE 5 ML IVF (21:29)
[2023-10-05] MEDS: ACETAMINOPHEN 325 MG TABLET PO (21:38)
[2023-10-06] VITALS (7 sets, daily range): BP systolic 110–156; BP diastolic 44–62; PULSE 62–81; RESP 18–22; TEMP 36.1–37.2; O2SAT 93–98
--- NOTE | 2023-10-06 04:26 | PC.NURSE ---
Patient pleasant and cooperative. Denies numbness, tingling, dizziness, nausea. PRN Tylenol effective for c/o headache. Patient otherwise denied any discomfort. 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 VSS.
[2023-10-06 06:39] LABS: Appearance Urine Clear (Clear); Bilirubin Urine Negative (Negative); Blood Urine Negative (Negative); Color Urine Yellow (Yellow); Glucose Urine Negative (Negative); Ketones Urine Trace (Negative); Leukocyte Esterase Urine Negative (Negative); Nitrite Urine Negative (Negative); Protein Urine Negative (Negative); Specific Gravity Urine 1.025 (1.000-1.030); Urobilinogen Urine 0.2 (0.2-1.0); pH Urine 5.5 (5.0-8.5)
[2023-10-06 06:43] LABS: Hematocrit 36.3 % (33.0-51.0); Hemoglobin* 11.6 gm/dL (12.0-16.0); Mean Corpuscular HGB Conc 32 gm/dL (32-36); Mean Corpuscular Hemoglobin 31 pg (26-34); Mean Corpuscular Volume 96 fL (80-100); Platelet Count* 242 K/uL (140-440); Red Blood Count 3.77 m/uL (4.00-5.20); White Blood Count* 9.87 K/uL (4.50-11.00)
[2023-10-06 06:48] LABS: Slide Review Reflex No
[2023-10-06 06:54] LABS: Amorphous Sediment Urine Few; RBC Urine 0-2 (0-2); Squamous Epithelial Cell Urine Few (None-Few); WBC Urine 0-2 (0-5)
[2023-10-06 07:10] LABS: Chloride* 105 mmol/L (96-114); Potassium* 3.5 mmol/L (3.6-5.1); Sodium* 136 mmol/L (135-149)
[2023-10-06 07:13] LABS: Anion Gap 8 mEq/L (7-15); Carbon Dioxide* 23 mmol/L (20-32); Cholesterol* 110 mg/dL (90-199); Creatinine* 0.6 mg/dL (0.5-1.5); Estimated Glomerular Filt Rate 94 ml/min
[2023-10-06 07:14] LABS: Blood Urea Nitrogen* 15 mg/dL (7-30); Calcium* 8.5 mg/dL (8.4-10.6); Glucose* 114 mg/dL (60-115); HDL Cholesterol* 42 mg/dL (>=50); LDL Cholesterol Calculated 46 mg/dL (<100); Triglycerides* 111 mg/dL (40-149)
[2023-10-06 07:29] LABS: Hemoglobin A1C* 5.5 % (0-5.6)
[2023-10-06] MEDS: CLOPIDOGREL 75 MG TABLET PO (09:28)
[2023-10-06] MEDS: buPROPion XL 150 MG TABLET 300 MG PO (09:28)
[2023-10-06] MEDS: ASPIRIN 81 MG TABLET EC PO (09:28)
[2023-10-06] MEDS: FERROUS SULFATE 325 MG TABLET PO (09:28)
[2023-10-06] MEDS: METOPROLOL TARTRATE 50 MG TABLET PO ×2 (09:28→21:32)
[2023-10-06] MEDS: ATORVASTATIN CALCIUM 40 MG TABLET PO (09:28)
[2023-10-06] MEDS: FLUOXETINE HCL 20 MG CAPSULE 60 MG PO (09:29)
[2023-10-06] MEDS: SODIUM CHLORIDE 0.9 % (FLUSH) 10 ML SYRINGE 5 ML IVF ×2 (09:29→21:33)
--- NOTE | 2023-10-06 10:46 | PM.IMPN1 ---
Progress Note: A&P Assessment and plan (1) Stroke: Problem details: -MRA on 10/05 exhibits a large acute infarction involving the frontal operculum, the insular lobe, the lateral basal ganglia and the gao radiata in the right hemisphere along with band of acute hemorrhage seen in the right lateral basal ganglia which could represent conglomerate petechial hemorrhage or an evolving space-occupying hemorrhage -ER reviewed with Neuroradiology (Dr. Davenport) and TeleStroke service (Dr. 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 -followed by [facility] in [place] (last visit 07/07/2023). Next appointment is 10/07/23 -currently managed by surveillance with consideration of treatment options if she becomes symptomatic or has progressive cytopenia Status: Chronic (3) Anemia, iron deficiency: Problem details: -stable, hemoglobin 13.5, managed with oral iron supplement Status: Inactive (4) Hypertension: Problem details: -admission systolic <160 -given concern for hemorrhagic stroke, will continue current home medications, continuing to monitor blood pressure (target 140-160 mmHg) -lower BPs noted on hospital day 1 (10/06), chlorthalidone discontinued and parameters for BB Status: Chronic (5) CAD (coronary artery disease): Problem details: -with history of atherosclerosis of coronary artery, s/p 5 stents -continue Plavix and aspirin (patient admits previous non-compliance with this) as recommended Status: Inactive (6) Dyslipidemia: Problem details: -MRA shows no evidence for hemodynamically significant ICA stenosis by NASCET criteria, no evidence for carotid or vertebral artery dissection in the neck, apparent stenoses at the origin of both vertebral arteries, potentially high-grade. 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 She was unable to get up. ER workup revealed an acute infarct within the R MCA distribution with concern for acute surrounding hemorrhage as well. She was seen by Stroke Neurology, who recommended full dose ASA + Plavix, TTE, therapies, repeat head CT 10/05 (performed and stable). Stroke Neurology will see her again today in f/u. She has been by PT and OT this morning, who recommend SNF placement. Patient agreeable, would strongly prefer to have rehab locally. Speech therapy did not have any formal recommendations at this time. This morning, patient notes poor balance (primary neurological symptom). She feels tired but has no other concerns for the hospitalist team. Exam Narrative: Exam Narrative: GEN: Alert and sitting comfortably in bedside chair, nontoxic HEENT: EOMIs bilaterally, no scleral icterus CV: RRR, No concerning murmurs R: LCTA bilaterally without concerning wheezing, air movement adequate Ext: wwp, no concerning edema Skin: No concerning skin lesions or rashes on exposed skin Neuro: No resting tremor while sitting in chair, gait not observed. No significant dysmetria on [id number] exam. No cranial nerve deficits Psych: Appropriate Const: Vital Signs, click to edit/add: Vital Signs - 24 hr 10/05/23 10:58 10/05/23 10:59 10/05/23 11:00 Temperature Pulse Rate 66 63 66 Pulse Rate [Left P ulse Oximeter] Pulse Rate [orthos tatic lying] Pulse Rate [orthos tatic sitting] Pulse Rate [orthos tatic standing] Respiratory Rate Blood Pressure 188/84 H Blood Pressure [Ri ght Arm] Blood Pressure [or thostatic lying] Blood Pressure [or thostatic sitting] Blood Pressure [or thostatic standing ] Pulse Oximetry 96 97 98 Oxygen Delivery Me thod 10/05/23 11:03 10/05/23 11:03 10/05/23 11:15 Temperature Pulse Rate 61 64 Pulse Rate [Left P ulse Oximeter] Pulse Rate [orthos tatic lying] Pulse Rate [orthos tatic sitting] Pulse Rate [orthos tatic standing] Respiratory Rate Blood Pressure 180/82 H Blood Pressure [Ri ght Arm] Blood Pressure [or thostatic lying] Blood Pressure [or thostatic sitting] Blood Pressure [or thostatic standing ] Pulse Oximetry 96 96 94 Oxygen Delivery Mo thod 10/05/23 12:46 10/05/23 12:50 10/05/23 13:00 Temperature Pulse Rate 78 65 74 Pulse Rate [Left P ulse Oximeter] Pulse Rate [orthos tatic lying] Pulse Rate [orthos tatic sitting] Pulse Rate [orthos tatic standing] Respiratory Rate Blood Pressure 139/64 Blood Pressure [Ri ght Arm] Blood Pressure [or thostatic lying] Blood Pressure [or thostatic sitting] Blood Pressure [or thostatic standing ] Pulse Oximetry 97 97 [facility] 13:13 10/05/23 13:21 10/05/23 13:23 Temperature Pulse Rate 79 76 82 Pulse Rate [Left P ulse Oximeter] Pulse Rate [orthos tatic lying] Pulse Rate [orthos tatic sitting] Pulse Rate [orthos tatic standing] Respiratory Rate Blood Pressure 156/79 H 150/74 H 153/48 H Blood Pressure [Ri ght Arm] Blood Pressure [or thostatic lying] Blood Pressure [or thostatic sitting] Blood Pressure [or thostatic standing ] Pulse Oximetry 96 97 98 [facility] 10/05/23 13:30 10/05/23 13:42 10/05/23 13:43 Temperature Pulse Rate 80 73 81 Pulse Rate [Left P ulse Oximeter] Pulse Rate [orthos tatic lying] Pulse Rate [orthos tatic sitting] Pulse Rate [orthos tatic standing] Respiratory Rate Blood Pressure 163/76 H Blood Pressure [Ri ght Arm] Blood Pressure [or thostatic lying] Blood Pressure [or thostatic sitting] Blood Pressure [or thostatic standing ] Pulse Oximetry 92 96 98 [facility] 10/05/23 16:00 10/05/23 16:14 10/05/23 16:44 Temperature 99.0 F Pulse Rate Pulse Rate [Left P ulse Oximeter] 80 Pulse Rate [orthos tatic lying] Pulse Rate [orthos tatic sitting] Pulse Rate [orthos tatic standing] Respiratory Rate 18 Blood Pressure Blood Pressure [Ri ght Arm] 158/76 H Blood Pressure [or thostatic lying] Blood Pressure [or thostatic sitting] Blood Pressure [or thostatic standing ] Pulse Oximetry 96 97 96 Oxygen Delivery Me thod Room Air Room Air Room Air 10/05/23 16:44 10/05/23 18:06 10/05/23 19:35 Temperature 99.2 F Pulse Rate 71 Pulse Rate [Left P ulse Oximeter] 82 Pulse Rate [orthos tatic lying] 78 Pulse Rate [orthos tatic sitting] 79 Pulse Rate [orthos tatic standing] 88 Respiratory Rate 18 Blood Pressure Blood Pressure [Ri ght Arm] 135/58 L Blood Pressure [or thostatic lying] 136/48 L Blood Pressure [or thostatic sitting] 158/71 H Blood Pressure [or thostatic standing ] 150/86 H Pulse Oximetry 100 Oxygen Delivery Mo thod 10/05/23 21:27 10/05/23 23:00 10/05/23 23:00 Temperature 98.6 F 98.0 F Pulse Rate 69 Pulse Rate [Left P ulse Oximeter] 72 Pulse Rate [orthos tatic lying] Pulse Rate [orthos tatic sitting] Pulse Rate [orthos tatic standing] Respiratory Rate 24 Blood Pressure Blood Pressure [Ri ght Arm] 127/60 Blood Pressure [or thostatic lying] Blood Pressure [or thostatic sitting] Blood Pressure [or thostatic standing ] Pulse Oximetry 96 Oxygen Delivery Mo thod Room Air 10/06/23 04:00 10/06/23 07:00 10/06/23 07:00 Temperature 97.4 F L 97.6 F Pulse Rate Pulse Rate [Left P ulse Oximeter] 66 65 65 Pulse Rate [orthos tatic lying] Pulse Rate [orthos tatic sitting] Pulse Rate [orthos tatic standing] Respiratory Rate 20 18 18 Blood Pressure Blood Pressure [Ri ght Arm] 124/62 145/62 H Blood Pressure [or thostatic lying] Blood Pressure [or thostatic sitting] Blood Pressure [or thostatic standing ] Pulse Oximetry 98 96 Oxygen Delivery Mo thod Room Air Room Air 10/06/23 07:00 Temperature Pulse Rate 77 Pulse Rate [Left P ulse Oximeter] Pulse Rate [orthos tatic lying] Pulse Rate [orthos tatic sitting] Pulse Rate [orthos tatic standing] Respiratory Rate Blood Pressure Blood Pressure [Ri ght Arm] Blood Pressure [or thostatic lying] Blood Pressure [or thostatic sitting] Blood Pressure [or thostatic standing ] Pulse Oximetry Oxygen Delivery Me thod Labs Labs: Laboratory Results - last 24 hr 10/05/23 10/05/23 10/05/23 06:15 10:33 14:58 WBC 15.91 H RBC 4.38 Hgb 13.5 Hct 42.6 MCV 97 MCH 31 MCHC 32 RDW Coeff of Yaron 12.9 Plt Count 224 Neut % (Auto) 84.8 H Lymph % (Auto) 11.1 L [place] % (Auto) 3.5 Eos % (Auto) 0.1 Baso % (Auto) 0.2 Neut # (Auto) 13.50 H Lymph # (Auto) 1.80 [place] # (Auto) 0.60 Eos # (Auto) 0.00 Baso # (Auto) 0.00 Abs Immat Gran (auto) 0.00 Imm/Tot Granulo (auto) 0.3 INR 0.98 APTT 22 L Sodium 142 Potassium 3.7 Chloride 105 Carbon Dioxide 26 Anion Gap 11 BUN 15 Creatinine 0.6 Estimated Creat Clear 44.41 Estimated GFR 94 Glucose 133 H Hemoglobin A1c Calcium 9.2 Magnesium 2.2 Total Bilirubin 1.1 Direct Bilirubin 0.0 AST 35 ALT 20 Alkaline Phosphatase 122 Troponin I < 0.01 L C-Reactive Protein 0.9 NT-Pro-B Natriuret Pep 1180 Total Protein 7.4 Albumin 4.7 Triglycerides Cholesterol LDL Cholesterol, Calc HDL Cholesterol Urine Color Yellow Urine Appearance Clear Urine pH 5.5 Ur Specific [place] 1.025 Urine Protein Negative Urine Glucose (UA) Negative Urine Ketones Trace A Urine Blood Negative Urine Nitrite Negative Urine Bilirubin Negative Urine Urobilinogen 0.2 Ur Leukocyte Esterase Negative Urine RBC 0-2 Urine WBC 0-2 Ur Squamous Epith Cells Few Amorphous Sediment Few A Urine Bacteria None Urine Yeast Moderate A Ethyl Alcohol < 0.01 L Lab Acknowledgement Test Added 10/06/23 05:46 WBC 9.87 RBC 3.77 L Hgb 11.6 L Hct 36.3 MCV 96 MCH 31 MCHC 32 RDW Coeff of Yaron Plt Count 242 Neut % (Auto) Lymph % (Auto) [place] % (Auto) Eos % (Auto) Baso % (Auto) Neut # (Auto) Lymph # (Auto) [place] # (Auto) Eos # (Auto) Baso # (Auto) Abs Immat Gran (auto) Imm/Tot Granulo (auto) INR APTT Sodium 136 Potassium 3.5 L Chloride 105 Carbon Dioxide 23 Anion Gap 8 BUN 15 Creatinine 0.6 Estimated Creat Clear 46.20 Estimated GFR 94 Glucose 114 Hemoglobin A1c 5.5 Calcium 8.5 Magnesium Total Bilirubin Direct Bilirubin AST ALT Alkaline Phosphatase Troponin I C-Reactive Protein NT-Pro-B Natriuret Pep Total Protein Albumin Triglycerides 111 Cholesterol 110 LDL Cholesterol, Calc 46 HDL Cholesterol 42 L Urine Color Urine Appearance Urine pH Ur Specific [place] Urine Protein Urine Glucose (UA) Urine Ketones Urine Blood Urine Nitrite Urine Bilirubin Urine Urobilinogen Ur Leukocyte Esterase Urine RBC Urine WBC Ur Squamous Epith Cells Amorphous Sediment Urine Bacteria Urine Yeast Ethyl Alcohol Lab Acknowledgement
--- NOTE | 2023-10-06 12:46 | PC.NURSE ---
Patient had a shower and is currently sleeping
[2023-10-06] MEDS: ACETAMINOPHEN 325 MG TABLET PO (13:29)
--- NOTE | 2023-10-06 14:55 | PC.NURSE ---
End of Shift: Patient was really sleepy at the beginning of my shift. After about hour she was much more awake and did tolerate her breakfast. She was assisted with a shower which afterwards she took about an hour nap and did not have lunch. she had a repeat neuro consult this afternoon and family has been at bedside. She is currently awaiting to have an echo cardiogram. Did complain of a headache which she normally takes a lot of caffeine was given tylenol per standing orders. Will cotninue to monitor until next shift arrives.
--- NOTE | 2023-10-06 15:14 | PC.SOCIAL ---
Addendum entered by BLAZE Woods 10/06/23 15:56: Received a phone call from Марина at [facility] requesting pt's medicare number and social security number. Received information from pt and called Марина back at [phone] Ext. [phone] and left a voicemail providing the requested information. Original Note: Discharge planning- Per therapy, pt is appropriate for acute rehab. Met with pt and pt's family in room to discuss discharge plans. Discussed therapy recommendation and pt is not wanting to go to acute rehab. Pt is not wanting [facility]. Pt is wanting placement in [place] due to family being in [place]. Informed pt that [facility] is the only option in [place], however, they do not have a contract with pt's insurance ([employer]). Provided options for SNF. Pt's first preference is [facility]. Pt would also like information sent to [facility], however, pt would really like [facility] to be her first option due to distance. Informed pt that this worker will work on locating a SNF and keep pt updated. Contacted the following SNF's for possible placement. 1. [facility]- Phone call to admissions at [phone]. Left a voicemail inquiring on bed availability. Faxed referral to [phone]. 2. [facility]- Phone call to Cindy at [phone] Ext. [phone]. Left a voicemail inquiring on bed availability. Faxed referral to [phone]. Social work will continue to follow up as needed.
[2023-10-06] MEDS: TRAZODONE HCL 50 MG TABLET 100 MG PO (21:32)
--- NOTE | 2023-10-06 23:16 | PC.NURSE ---
Nursing Care Hours: [id number] Pt this shift alert and oriented, calm and cooperative with cares. Up to bathroom with walker and gait belt. No c/o pain. VSS.
[2023-10-07 03:00] VITALS: BP 134/61; PULSE 67; RESP 18; TEMP 36.8; O2SAT 92
[2023-10-07 05:52] LABS: HCO3 VBG 25 mmol/L (21-28); PCO2 VBG 36 mmHG (40-50); pH VBG 7.452 (7.32-7.43)
[2023-10-07 05:56] LABS: Basophils Absolute Auto 0.05 K/uL (0.00-0.30); Basophils Percent Auto 0.6 % (0.0-3.0); Eosinophils Absolute Auto 0.19 K/uL (0.00-0.50); Eosinophils Percent Auto 2.2 % (0.0-7.0); Hematocrit 36.9 % (33.0-51.0); Hemoglobin* 11.7 gm/dL (12.0-16.0); Immature Granulocytes Abs Auto 0.01 K/uL (0.00-0.30); Immature Granulocytes Pct Auto 0.1 %; Lymphocytes Percent Auto 22.9 % (20-44); Mean Corpuscular HGB Conc 32 gm/dL (32-36); Mean Corpuscular Hemoglobin 31 pg (26-34); Mean Corpuscular Volume 96 fL (80-100); Monocytes Percent Auto 7.7 % (0.0-11.0); Neutrophils Absolute Auto 5.82 K/uL (1.7-7.0); Neutrophils Percent Auto 66.5 % (42.0-72.0); Platelet Count* 236 K/uL (140-440); RDW Coefficient of Variation % 13.1 % (11.5-15.5); Red Blood Count 3.83 m/uL (4.00-5.20); White Blood Count* 8.74 K/uL (4.50-11.00)
[2023-10-07 05:57] LABS: Slide Review Reflex No
--- NOTE | 2023-10-07 06:07 | PC.NURSE ---
End of shift report [id number]: Alert and oriented x 4. Patient denies any pain this shift. Neuros intact, patient does have left hand weakness but states that she previously had a wrist fracture and has weakness at baseline. Ambulates with SBA with walker and gait belt.
[2023-10-07 06:12] LABS: Chloride* 106 mmol/L (96-114); Potassium* 3.8 mmol/L (3.6-5.1); Sodium* 135 mmol/L (135-149)
[2023-10-07 06:14] LABS: Creatinine* 0.7 mg/dL (0.5-1.5); Estimated Glomerular Filt Rate 91 ml/min
[2023-10-07 06:15] LABS: Anion Gap 4 mEq/L (7-15); Blood Urea Nitrogen* 15 mg/dL (7-30); Calcium* 8.4 mg/dL (8.4-10.6); Carbon Dioxide* 25 mmol/L (20-32); Glucose* 111 mg/dL (60-115)
[2023-10-07] MEDS: ACETAMINOPHEN 325 MG TABLET PO (06:51)
[2023-10-07 07:00] VITALS: BP 135/58; PULSE 59; PULSE 60; PULSE 78; RESP 22; TEMP 37.2; O2SAT 92
[2023-10-07] MEDS: ATORVASTATIN CALCIUM 40 MG TABLET PO (09:39)
[2023-10-07] MEDS: ASPIRIN EC 325 MG TABLET PO (09:39)
[2023-10-07] MEDS: buPROPion XL 150 MG TABLET 300 MG PO (09:39)
[2023-10-07] MEDS: FERROUS SULFATE 325 MG TABLET PO (09:40)
[2023-10-07] MEDS: FLUOXETINE HCL 20 MG CAPSULE 60 MG PO (09:40)
[2023-10-07] MEDS: METOPROLOL TARTRATE 50 MG TABLET PO (09:40)
[2023-10-07] MEDS: CLOPIDOGREL 75 MG TABLET PO (09:40)
[2023-10-07 11:00] VITALS: BP 112/49; PULSE 53; RESP 20; TEMP 36.8; O2SAT 96
--- NOTE | 2023-10-07 12:25 | PC.SOCIAL ---
Discharge planning- Lu Daniel (DON from [facility]) assessed pt in person today. [facility] able [facility] accept pt for today. Discussed with pt and pt's daughter and provided update. Pt would like to go to [facility]. Pt's insurance ([employer]) is waiving prior authorization this month. [facility] is able to take pt anytime before 3:00 pm. Pt's daughter will transport pt at 2:00 pm to [facility]. Provided update to nursing, , and [facility]. Completed preadmission screening. Confirmation #[id number]. Social work will follow up as needed.
--- NOTE | 2023-10-07 16:02 | PC.NURSE ---
Nursing Care Hours: [id number] Pt this shift calm and cooperative, flat affect and oriented. VSS. No c/o pain. SB/Ax1 with standing walker and gait belt. Tele shows NSR. Discharged to Rehab facility, transferred by adult daughter. Left in stable condition.
--- NOTE | 2023-10-07 20:19 | PM.DS1 ---
DS: Providers Provider Date Seen: 10/07/23 Date of admission: 10/06/23 10:42 Primary care physician: Maite Warner MD Admitting Clinician: Abad Haynes MD Consults: 10/05/23 14:39 Consult to Speech Therapy [CONS] Routine Comment: Reason(s) for Speech Consult:: Speech/Swallowing Eval Comment: Stroke protocol 10/05/23 14:40 Consult to Occupational Therapy [CONS] Routine Comment: Reason(s) for OT Consult:: Evaluate and Treat Any Restrictions?:: No Restrictions Consult to Physical Therapy [CONS] Routine Comment: Reason(s) for PT Consult:: Evaluate and Treat Any Restrictions?:: No Restrictions 10/05/23 15:38 Consult to Warping Machine Operator [CONS] Routine Comment: Reason for Consult:: Discharge Planning Needs Attending Physician on discharge: Rivas Garcia MD Date of Discharge: 10/07/23 DS: Diagnosis Discharge Diagnosis (1) Falls: Status: Acute Problem details: -in setting of worsening balance -PT/OT and outpatient recommendations -daughter interested in [facility] access -leukocytosis with left shift noted, UA ordered in ED (2) Imbalance: Status: Acute Problem details: -resulting in falls with traumatic wrist fracture March 2023, falls x 2 in past 24 hours (3) Stroke: Status: Acute Problem details: -MRA on 10/05 exhibits a large acute infarction involving the frontal operculum, the insular lobe, the lateral basal ganglia and the gao radiata in the right hemisphere along with band of acute hemorrhage seen in the right lateral basal ganglia which could represent conglomerate petechial hemorrhage or an evolving space-occupying hemorrhage -ER reviewed with Neuroradiology (Dr. Davenport) and TeleStroke service (Dr. Katz), initially recommending daily aspirin 325mg QD + continued Plavix (aware of hemorrhage) -repeat head CT 10/05 pm, stable -TTE with bubble ordered -lipids, hemoglobin A1c, telemetry -therapies following, marriage and family social worker consulted for discharge planning /needs, daughter with concerns of patient returning home alone - Dr. Jessica Mendez MD, [facility] Stroke Neurology, saw patient in consultation while patient was in hospital via telehealth services and ultimately recommended the following: -- Clopidogrel monotherapy for stroke prevention due to petechial hemorrhage, but okay with ASA 81 mg and clopidogrel 75 mg daily if needed for cardiac stents (patient has 5 cardiac stents, 2x stents placed 1997 and 3x stents placed 07/2021). -- Extended outpatient cardiac monitoring, external for 30 days, and if negative then LINQ - please set up. -- Intensive statin therapy, continue with Atorvastatin 40 mg daily with goal of LDL < 70 mg/dl. -- Rehabilitation interventions. -- Exercise: Daily aerobic > 30 minutes as tolerated. -- Outpatient follow up with local neurologist - please set up. 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 -followed by [facility] in [place] (last visit 07/07/2023). Next appointment is 10/07/23 -currently managed by surveillance with consideration of treatment options if she becomes symptomatic or has progressive cytopenia (5) Hypertension: Status: Chronic Problem details: -admission systolic <160 -given concern for hemorrhagic stroke, will continue current home medications, continuing to monitor blood pressure (target 140-160 mmHg) -lower BPs noted on hospital day 1 (10/06), chlorthalidone discontinued and parameters for BB (6) Heart failure with preserved ejection fraction: Status: Chronic Problem details: -patient stopped taking furosemide (doesn't like increased urination) -continue HCTZ -BNP 1180, ECHO ordered -strict I&Os, daily weights (7) Dyslipidemia: Status: Chronic Problem details: -MRA shows no evidence for hemodynamically significant ICA stenosis by NASCET criteria, no evidence for carotid or vertebral artery dissection in the neck, apparent stenoses at the origin of both vertebral arteries, potentially high-grade. 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 Plain film unremarkable for acute trauma s/p fall DS: Summary Hospital Course Hospital Course: 73-year-old woman presented on 10/05/2023 with fall and acute left-sided weakness starting at 5:00 p.m. on 10/04/2023. She was found on the floor. Initially declined to come to the hospital but was found on the floor again the next day and thus agreed to present to the hospital for further assessment. Initially had slight left facial droop and left upper extremity proximal drift. Over time these seem to have resolved. Had residual imbalance. Deemed appropriate for retirement facility rehabilitation. See additional details in diagnosis section above. Status at Discharge Functional status at discharge: uses cane/walker Overall status at discharge: patient is not back to baseline Time Spent with Patient Time attestation: Total time spent providing and/or coordinating discharge services: Time spent: Greater than 30 minutes Exam Narrative: Exam Narrative: GEN: Alert and sitting comfortably in bedside chair, nontoxic HEENT: EOMIs bilaterally, no scleral icterus CV: RRR, No concerning murmurs R: LCTA bilaterally without concerning wheezing, air movement adequate Ext: wwp, no concerning edema Skin: No concerning skin lesions or rashes on exposed skin Neuro: No resting tremor while sitting in chair, gait not observed. No significant dysmetria on gecmli-fi-xtbi exam. Normal, symmetric alternating rapid movements of both hands and fingers. Normal strength testing bilaterally upper extremities. No cranial nerve deficits chronic left shoulder pain noted. Psych: Appropriate Const: Vital Signs, click to edit/add: Vital Signs - 24 hr 10/06/23 23:00 10/06/23 23:00 10/07/23 03:00 Temperature 97.4 F L 98.3 F Pulse Rate 81 Pulse Rate [Left P ulse Oximeter] 70 67 Respiratory Rate 22 18 Blood Pressure [Ri ght Arm] 133/59 L 134/61 Pulse Oximetry 93 92 Oxygen Delivery Me thod Room Air Room Air 10/07/23 07:00 10/07/23 07:00 10/07/23 07:00 Temperature 98.9 F Pulse Rate 59 L Pulse Rate [Left P ulse Oximeter] 78 60 Respiratory Rate 22 22 Blood Pressure [Ri ght Arm] 135/58 L Pulse Oximetry 92 Oxygen Delivery Me thod Room Air 10/07/23 11:00 Temperature 98.3 F Pulse Rate Pulse Rate [Left P ulse Oximeter] 53 L Respiratory Rate 20 Blood Pressure [Ri ght Arm] 112/49 L Pulse Oximetry 96 Oxygen Delivery Me thod Room Air DS: Data Data Completed and Pending Labs on day of discharge: Labs from last 24 hours 10/07/23 05:38 WBC 8.74 RBC 3.83 L Hgb 11.7 L Hct 36.9 MCV 96 MCH 31 MCHC 32 RDW Coeff of Yaron 13.1 Plt Count 236 Neut % (Auto) 66.5 Lymph % (Auto) 22.9 [place] % (Auto) 7.7 Eos % (Auto) 2.2 Baso % (Auto) 0.6 Neut # (Auto) 5.82 Lymph # (Auto) 2.00 [place] # (Auto) 0.70 Eos # (Auto) 0.19 Baso # (Auto) 0.05 Abs Immat Gran (auto) 0.01 Imm/Tot Granulo (auto) 0.1 VBG pH 7.452 H VBG pCO2 36 L VBG pO2 103.0 H VBG HCO3 25 Sodium 135 Potassium 3.8 Chloride 106 Carbon Dioxide 25 Anion Gap 4 L BUN 15 Creatinine 0.7 Estimated Creat Clear 46.20 Estimated GFR 91 Glucose 111 Calcium 8.4 Preliminary micro results at discharge 10/05/23 06:15 Urine Culture - Preliminary Urine,Clean Catch Gram negative emilia Imaging MRI head, MRA head and neck: Attestation: I have reviewed the pertinent imaging results. Radiologist's impression: MRI Head: 1. There is a large 40 mm acute infarction involving the frontal operculum, the insular lobe, the lateral basal ganglia and the gao radiata in the right hemisphere. 2. A 25 mm band of acute hemorrhage is seen in the right lateral basal ganglia. This could represent conglomerate petechial hemorrhage or an evolving space-occupying hemorrhage. 3. No global mass effect at this time. 4. Background small vessel ischemic changes and parenchymal atrophy. MRA Head: 1. Motion degraded exam. 2. No gross evidence for proximal intracranial arterial occlusion. MRA Neck: 1. No evidence for hemodynamically significant ICA stenosis by NASCET criteria. 2. No evidence for carotid or vertebral artery dissection in the neck. 3. Apparent stenoses at the origin of both vertebral arteries, potentially high-grade. CT cervical spine: Attestation: I have reviewed the pertinent imaging results. Radiologist's impression: IMPRESSION: 1. No sign of acute cervical spine fracture. 2. Advanced multilevel degenerative spondylosis. 3. Moderate degenerative spinal canal stenosis at C5-C6. In the setting of trauma finding places patient wrist for cord contusion. If there is clinical concern for this consider MRI. CT scan - head: Attestation: I have reviewed the pertinent imaging results. Radiologist's impression: 0900 imaging IMPRESSION: Large hyperdensity centered within the right putamen and gao radiata with extension into the right centrum semiovale. There is also blurring of the right insular ribbon. Finding is age indeterminate as there is no prior comparisons but there is concern for acute/subacute infarct. There is subtle internal hyperdensity within the right putamen which may represent punctate petechial hemorrhagic conversion versus artifact. Cannot exclude underlying lesion. Recommend MRI to further evaluate. 1800 imaging IMPRESSION: No substantial change compared to prior. Right MCA vascular distribution infarct with focal hemorrhage limited to the putamen. No substantial mass effect. Lumbar spine x-ray: Attestation: I have reviewed the pertinent imaging results. Radiologist's impression: IMPRESSION: Postop lumbar spine with degenerative change as above. No acute fracture or dislocation seen Discharge Plan Discharge Disposition: [facility] Date of Admission: 10/06/23 10:42 Attending Provider on Discharge: Rivas Garcia Primary Care Provider: Maite Warner Condition: Stable Anticipated Discharge Date/Time: 10/07/23 12:00 Discharge Medications: New polyethylene glycol 3350 [Miralax] 17 gram Powder In Packet 17 g PO DAILY PRN15 Days Qty: 15 0RF sennosides-docusate sodium [Stool Softener-Laxative] 8.6-50 mg Tablet 1 tab PO DAILY PRN15 Days Qty: 15 0RF acetaminophen 325 mg tablet 650 mg PO QID Qty: 120 0RF modafinil 100 mg tablet 100 mg PO DAILY Qty: 14 1RF Continued atorvastatin 40 mg tablet 40 mg PO DAILY trazodone 100 mg tablet 100 mg PO QPM albuterol sulfate 90 mcg/actuation HFA aerosol inhaler 1 - 2 puff INHALATION Q4H PRN (Reason: dyspnea) fluoxetine 20 mg capsule 60 mg PO QAM spironolactone 50 mg tablet 50 mg PO DAILY bupropion HCl 300 mg tablet extended release 24 hr 300 mg PO DAILY ferrous sulfate 324 mg (65 mg iron) tablet,delayed release (DR/EC) 324 mg PO DAILY oxybutynin chloride 10 mg tablet extended release 24hr 10 mg PO DAILY clopidogrel 75 mg tablet 75 mg PO DAILY metoprolol tartrate 50 mg tablet 50 mg PO BID modafinil 100 mg tablet 100 mg PO DAILY aspirin 81 mg tablet,delayed release (DR/EC) 81 mg PO DAILY Discontinued celecoxib 200 mg capsule 200 mg PO DAILY Discharge Orders: Discharge Order (Routine); Ordered 10/07/23 Ordered By: Rivas Garcia Additional Instructions: - MRI head and MRA head and neck, 10/05/2023: Impression: MRI Head: 1. There is a large 40 mm acute infarction involving the frontal operculum, the insular lobe, the lateral basal ganglia and the gao radiata in the right hemisphere. 2. A 25 mm band of acute hemorrhage is seen in the right lateral basal ganglia. This could represent conglomerate petechial hemorrhage or an evolving space-occupying hemorrhage. 3. No global mass effect at this time. 4. Background small vessel ischemic changes and parenchymal atrophy. MRA Head: 1. Motion degraded exam. 2. No gross evidence for proximal intracranial arterial occlusion. MRA Neck: 1. No evidence for hemodynamically significant ICA stenosis by NASCET criteria. 2. No evidence for carotid or vertebral artery dissection in the neck. 3. Apparent stenoses at the origin of both vertebral arteries, potentially high-grade. - Given the acute hemorrhage in the right lateral basal ganglia, we stopped the scheduled celecoxib and initiated scheduled acetaminophen. May need additional analgesia over time, such as topical NSAID to affected left shoulder. - Dr. Jessica Mendez MD, [facility] Stroke Neurology, saw patient in consultation while patient was in hospital via telehealth services and recommended the following: -- Clopidogrel monotherapy for stroke prevention due to petechial hemorrhage, but okay with ASA 81 mg and clopidogrel 75 mg daily if needed for cardiac stents (patient has 5 cardiac stents, placed 07/2021). -- Exended outpatient cardiac monitoring, external for 30 days, and if negative then LINQ - please set up. -- Intensive statin therap, continue with Atorvasttin 40 mg daily with goal of LDL < 70 mg/dl. -- Rehabilitation interventions. -- Exercise: Daily aerobic > 30 minutes as tolerated. -- Outpatient follow up with local neurologist - please set up. - Family contact and/or POA: 1. Raisa Medina, daughter, , 2. Kathi Cardona, daughter, . Activity Level: Activity as Tolerated and Use Walker Discharge Diet: Regular Follow Up Appointments: Maite Warner MD [Primary Care Provider] - Forms: [facility] Info Instructions Admit to: SNF Discharge Potential: Fair Length of Stay: <30 days Can use facility standing orders?: Yes Code Status: Full Code Therapy: Physical Therapy and Occupational Therapy Therapy Orders: Evaluate and Treat Oxygen: No Urinary Catheter: No Orders are good >30 days: Yes Signature: Rivas Garcia
== END 2023-10-07 13:50 | DRG 65 ==
LOC: ED 13:24 → MEDSURG 14:36
PROVIDERS: Family Medicine; Physician Assistant; Admitting Provider Family Medicine; Emergency Provider Family Medicine; PCP Family Medicine; Visit Provider Family Medicine
DX: I62.9 Nontraumatic intracranial hemorrhage, unspecified (principal); C83.00 Small cell B-cell lymphoma, unspecified site; G81.94 Hemiplegia, unspecified affecting left nondominant side; I13.0 Hypertensive heart and chronic kidney disease with heart failure and stage 1 through stage 4 chronic kidney disease, or unspecified chronic kidney disease; I50.32 Chronic diastolic (congestive) heart failure; R29.810 Facial weakness; N18.2 Chronic kidney disease, stage 2 (mild); E66.01 Morbid (severe) obesity due to excess calories; R26.89 Other abnormalities of gait and mobility; R32 Unspecified urinary incontinence; Z91.81 History of falling; I77.810 Thoracic aortic ectasia; R51.9 Headache, unspecified; D50.9 Iron deficiency anemia, unspecified; I25.10 Atherosclerotic heart disease of native coronary artery without angina pectoris; G47.9 Sleep disorder, unspecified; Z98.84 Bariatric surgery status; M48.061 Spinal stenosis, lumbar region without neurogenic claudication; Z95.5 Presence of coronary angioplasty implant and graft; F32.A Depression, unspecified; E78.5 Hyperlipidemia, unspecified; K21.9 Gastro-esophageal reflux disease without esophagitis
CPT/HCPCS: 36415; 70450; 70544; 70549; 70553; 72100; 72125; 80048; 80061; 80076; 81001; 82077; 82803; 83036; 83735; 83880; 84484; 85025; 85027; 85610; 85730; 86140; 87086; 87186; 87631; 92523; 92610; 93005; 93306; 94761; 97112; 97116; 97161; 97165; 97530; 97535; 99233; 99285; G0378; G0508; A9270; A9575; J7120

== ENCOUNTER 2023-10-28 13:06 | Outpatient (CLI) | payer MEDICARE, SELFPAY ==
--- NOTE | 2023-10-28 14:00 | CRLHL7_ITS ---
For Patients: As a result of the Century Cures Act, medical imaging exams and procedure reports are released immediately into your electronic medical record. You may view this report before your referring provider. If you have questions, please contact your health care provider. Indication: Lymphoma Technique: CT Chest/Abd/Pelvis W/ISOVUE [address] Please note that all CT scans at this facility use dose modulation, iterative reconstruction, and/or weight-based dosing when appropriate to reduce radiation dose to as low as reasonably achievable. Comparison: CT PET 03/16/2023 Findings: In the chest, unchanged enlarged right axillary lymph node is present measuring 3.7 x 1.3 cm. Smaller subcentimeter adjacent lymph nodes are noted. Visualized thyroid is normal. Stable right paratracheal and precarinal lymph nodes. Stable subcarinal and right hilar lymph nodes. No pleural or pericardial effusion. 2 millimeter nodule left upper lobe, 3/38. Subpleural nodule anterior right lung, 3/38, 2-3 millimeters. No infiltrate or edema. Mild dependent scarring. In the abdomen, no suspicious hepatic mass noted. Gallbladder is absent. No biliary obstruction. The spleen is normal. Normal pancreas. Stable bilateral adrenal nodules. Unchanged left renal cyst. Normal right kidney. Atherosclerotic changes. Stable subcentimeter retroperitoneal lymph nodes. Postop changes to the stomach. In the pelvis, the bladder is incompletely distended. The appendix is normal. No bowel obstruction. The ureters are normal. Multilevel degenerative changes. Postoperative changes L4-5. No fracture. Impression: Stable right axillary adenopathy. Stable mildly prominent mediastinal and upper retroperitoneal lymph nodes. Please note that all CT scans at this facility use dose modulation, iterative reconstruction, and/or weight-based dosing when appropriate to reduce radiation dose to as low as reasonably achievable. Dictated by Michael Khoury MD @ 11/04/2023 4:31:31 PM (Electronically Signed)
== END 2023-10-28 13:07 | disposition home or self-care (01) ==
LOC: CT 13:07
PROVIDERS: PCP Family Medicine; Visit Provider Internal Medicine
DX: C85.90 Non-Hodgkin lymphoma, unspecified, unspecified site (principal)
CPT/HCPCS: 71260; 74177; Q9967

== ENCOUNTER 2024-10-27 10:47 | Outpatient (CLI) | payer MEDICARE, SELFPAY | END 2024-10-27 10:48 | disposition home or self-care (01) | LOC: NFLDREF 20:24 | PROVIDERS: PCP Family Medicine; Referring Provider Family Medicine; Visit Provider Nurse Practitioner | DX: N30.00 Acute cystitis without hematuria (principal) | CPT/HCPCS: 87086; 87186 ==

== ENCOUNTER 2024-10-27 11:31 | Emergency (ER) | payer MEDICARE, SELFPAY ==
[2024-10-27] VITALS (14 sets, daily range): BP systolic 138–152; BP diastolic 68–92; PULSE 61–72; RESP 20; TEMP 36.6; O2SAT 91–96; BMI 43.6
--- NOTE | 2024-10-27 11:35 | CRLHL7_ITS ---
For Patients: As a result of the Century Cures Act, medical imaging exams and procedure reports are released immediately into your electronic medical record. You may view this report before your referring provider. If you have questions, please contact your health care provider. INDICATION: Pain and swelling TECHNIQUE: Ultrasound venous duplex lower left extremity. Compression venous exam was performed using peña-scale, color Doppler, and spectral Doppler analysis. COMPARISON: None FINDINGS: Sonographic imaging demonstrates the left common femoral, deep femoral, superficial femoral, popliteal, posterior tibial and greater saphenous and the contralateral right common femoral veins to be fully compressible with normal color Doppler blood flow. IMPRESSION: No convincing radiographic evidence of deep vein thrombosis within the visualized left lower extremity. Dictated by Hudson Coates MD @ 10/27/2024 1:21:33 PM (Electronically Signed)
--- NOTE | 2024-10-27 12:00 | ED_ITS ---
HPI - General Adult General Time Seen by Provider: 12:00 Date Seen: 10/27/24 Chief complaint: Extremity Pain/Injury, Lower Stated complaint: left leg pain Time Seen by Provider: 10/27/24 11:35 Source: patient, RN notes reviewed and old records reviewed Mode of arrival: ambulatory Limitations: no limitations History of Present Illness HPI narrative: This 74-year-old female is coming in upon referral from urgent care for left lower extremity venous ultrasound, patient had concerns with left medial calf pain starting today. She denies any trauma but was hospitalized for stroke here at [facility], hospitalization was reviewed from 2022. She is on 81 mg aspirin and Plavix for this. No known history of thrombo embolic disease. She denies any chest pain, no shortness of breath. She did have some microhemorrhages on her imaging as a complication of her stroke. She does note difficulty with gait instability, notes that feeling unstable and ambulating are probably worst complication of her stroke. She denies any major motor weakness at this time, maybe some in her left arm. She notes when she pulls her foot back or dorsiflexes, feels pain more in the medial side of this left calf. She has not noted any swelling. There has been no fevers, no noted trauma. She also had complaint of urinary symptoms well in urgent care. Urinalysis was done there and is consistent with UTI. Patient is notably given a prescription for Bactrim DS 1 p.o. b.i.d. x7 days. Did review her prior recent kidney functions and her estimated creatinine clearance is in the 40s with creatinine of 0.6-0.7 during the last hospitalization. Patient really should have single strength Bactrim if Bactrim is to be used. There is a culture from 2022 with probable contamination of E coli but is completely sensitive to cephalosporins as well as Cipro. Resistant to ampicillin as well as Unasyn on that culture. Related Data Home Medications ?Medication ?Instructions ?Recorded ?Confirmed albuterol sulfate 90 mcg/actuation 1 - 2 puff inhalation Q4H PRN 10/05/23 10/27/24 aerosol inhaler dyspnea aspirin 81 mg tablet,delayed 81 mg PO DAILY 10/05/23 10/27/24 release atorvastatin 40 mg tablet 40 mg PO DAILY 10/05/23 10/27/24 bupropion HCl 300 mg 24 hr tablet, 300 mg PO DAILY 10/05/23 10/27/24 extended release clopidogrel 75 mg tablet 75 mg PO DAILY 10/05/23 10/27/24 fluoxetine 20 mg capsule 60 mg PO QAM 10/05/23 10/27/24 metoprolol tartrate 50 mg tablet 50 mg PO BID 10/05/23 10/27/24 modafinil 100 mg tablet 100 mg PO DAILY 10/05/23 10/27/24 oxybutynin chloride 10 mg 10 mg PO DAILY 10/05/23 10/27/24 tablet,extended release 24 hr spironolactone 50 mg tablet 50 mg PO DAILY 10/05/23 10/27/24 trazodone 100 mg tablet 100 mg PO QPM 10/05/23 10/27/24 Previous Rx's ?Medication ?Instructions ?Recorded acetaminophen 325 mg tablet 650 mg (2 x 325 mg) PO QID #120 10/07/23 tabs modafinil 100 mg tablet 100 mg PO DAILY #14 tabs 10/07/23 cephalexin 500 mg tablet 500 mg PO TID #21 tabs 10/27/24 sulfamethoxazole 800 1 tab PO BID 7 days #14 tabs 10/27/24 mg-trimethoprim 160 mg tablet Allergies Allergy/AdvReac Type Severity Reaction Status Date / Time No Known Drug Allergies Allergy Verified 10/27/24 11:42 Review of Systems Status of ROS: Reports: 6 or more systems reviewed and unremarkable except as noted in History and below [facility] Medical History Spinal stenosis ?M48.00 - Spinal stenosis, site unspecified (ICD-10) CAD (coronary artery disease) ?I25.10 - Atherosclerotic heart disease of [place] coronary artery without angina pectoris (ICD-10) Sleep disorder ?G47.9 - Sleep disorder, unspecified (ICD-10) Venous insufficiency ?I87.2 - Venous insufficiency (chronic) (peripheral) (ICD-10) Coronary atherosclerosis ?I25.10 - Atherosclerotic heart disease of [place] coronary artery without angina pectoris (ICD-10) Depression ?F32.A - Depression, unspecified (ICD-10) CKD (chronic kidney disease) stage 2, GFR 60-89 ml/min ?N18.2 - Chronic kidney disease, stage 2 (mild) (ICD-10) Anemia, iron deficiency ?D50.9 - Iron deficiency anemia, unspecified (ICD-10) Thoracic aortic ectasia ?I77.810 - Thoracic aortic ectasia (ICD-10) Surgical History S/P coronary artery stent placement ?Z95.5 - Presence of coronary angioplasty implant and graft (ICD-10) S/P gastric bypass ?Z98.84 - Bariatric surgery status (ICD-10) Social History What is your current living situation?: I presently have a place to live Problems where you live: no known problems Problems where you live details: N/A In the past 12 months, utilities in danger of being shut off: no In past 12 months, lack of transportation kept you from medical appts, meetings, work, or getting things needed for daily living: no In the past 12 mos, have been you worried that your food would run out before you had money to buy more?: never true In the past 12 mos, the food you bought just didn't last and you didn't have money to buy more?: never true Highest level of school completed/degree received: Bachelor's degree Smoking Status: Former smoker Do you use any of these nicotine containing products: None How often do you have a drink containing alcohol: monthly or less How often do you have six or more drinks on one occasion: Never AUDIT-C Alcohol total score: 1 Non-prescribed substance use: denies use Caffeine: Yes How often does anyone, including family, friends and others, physically hurt you : never How often does anyone, including family, friends and others, insult or talk down to you: never How often does anyone, including family, friends and others, threaten you with harm: never How often does anyone, including family, friends and others, scream or curse at you: never service: No Exam Const: Vital Signs, click to edit/add: Vital Signs - 24 hr 10/27/24 11:43 10/27/24 12:51 10/27/24 12:52 Temperature 97.9 F Pulse Rate 62 62 Pulse Rate [Pulse Oximeter] 67 Respiratory Rate 20 Blood Pressure 152/74 H Blood Pressure [Ri ght Upper Arm] 143/92 H Pulse Oximetry 94 93 92 Oxygen Delivery Me thod Room Air 10/27/24 13:00 10/27/24 13:02 10/27/24 13:19 Temperature Pulse Rate 61 62 70 Pulse Rate [Pulse Oximeter] Respiratory Rate Blood Pressure 140/69 H Blood Pressure [Ri ght Upper Arm] Pulse Oximetry 91 91 93 Oxygen Delivery Me thod 10/27/24 13:30 10/27/24 13:32 10/27/24 13:45 Temperature Pulse Rate 69 70 71 Pulse Rate [Pulse Oximeter] Respiratory Rate Blood Pressure 143/76 H Blood Pressure [Ri ght Upper Arm] Pulse Oximetry 94 94 93 Oxygen Delivery Me thod 10/27/24 14:00 10/27/24 14:01 10/27/24 14:15 Temperature Pulse Rate 71 72 69 Pulse Rate [Pulse Oximeter] Respiratory Rate Blood Pressure 148/73 H Blood Pressure [Ri ght Upper Arm] Pulse Oximetry 96 92 92 Oxygen Delivery Me thod This 74-year-old female is alert, interactive, no apparent distress. Breathing easily on room air, lungs clear come good air entry. CV regular rate and rhythm, no murmur. Neck is supple, no adenopathy or jugular venous distension noted. Able speak complete sentences, sclera clear. Abdomen is soft, nontender, nondistended, no palpable organomegaly. She has no visible lower extremity edema, does complain of some pain with some flexion of her knee, no popliteal fossa mass. There is no skin changes such as erythema or hemosiderin staining along her lower extremities. Good peripheral pulses. She does complain of a lying along her medial calf where there was pain, does seem to follow veinous system but note no concerning varicosities, certainly cannot feel a cord. Do agree she has a positive Homans sign. She does ambulate with a cane baseline. Documenting provider has reviewed patient's vital signs: yes Course Course ED Course: Will obtain blood work on this patient with a CBC in update her kidney functions with a BMP. Will likely switch her antibiotics after discussion with her and her daughter for UTI if discharged. Will obtain ultrasound of this left lower extremity to ensure no DVT as that is what she is concerned about. Will be obtaining baseline D-dimer. Do wonder if arthritis in her knees could be a possible explanation for her pain as well. We will get bilateral standing knees to see if this could be of possible alternate explanation. Reevaluation(s) Time of Reevaluation #1: 14:43 Reevaluation #1: Have reviewed negative ultrasound for DVT with patient, her D-dimer was normal as well. Her knee imaging does show bilateral medial joint space narrowing. I do wonder if some of the pain could be coming from osteoarthritis. She can follow up with Orthopedics. Will give her handout on osteoarthritis. Can try Tylenol baseline for pain management. We will initiate Keflex rather than Bactrim for her UTI, will send this in for her. Vital Signs Vital signs: Initial Vital Signs Temperature 97.9 F 10/27/24 11:43 Temperature Source Temporal Artery Scan 10/27/24 11:43 Pulse Rate 67 10/27/24 11:43 Respiratory Rate 20 10/27/24 11:43 Blood Pressure 143/92 H 10/27/24 11:43 Blood Pressure Mean 109 H 10/27/24 11:43 Blood Pressure Position High-Fowlers 10/27/24 11:43 Pulse Oximetry 94 10/27/24 11:43 Oxygen Delivery Method Room Air 10/27/24 11:43 Vital Signs Temperature 97.9 F 10/27/24 11:43 Pulse Rate 67 10/27/24 11:43 Respiratory Rate 20 10/27/24 11:43 Blood Pressure 143/92 H 10/27/24 11:43 Pulse Oximetry 94 10/27/24 11:43 Oxygen Delivery Method Room Air 10/27/24 11:43 Temperature 97.9 F 10/27/24 11:43 Pulse Rate 69 10/27/24 14:15 Respiratory Rate 20 10/27/24 11:43 Blood Pressure 148/73 H 10/27/24 14:01 Pulse Oximetry 92 10/27/24 14:15 Oxygen Delivery Method Room Air 10/27/24 11:43 Medical Decision Making Lab Data Lab results reviewed: Yes I reviewed the patient's lab results Labs: Lab Results 10/27/24 Range/Units 12:17 WBC 11.38 H (4.50-11.00) K/uL RBC 3.62 L (4.00-5.20) m/uL Hgb 11.2 L (12.0-16.0) gm/dL Hct 34.7 (33.0-51.0) % MCV 96 (80-100) fL MCH 31 (26-34) pg MCHC 32 (32-36) gm/dL RDW Coeff of Yaron 13.1 (11.5-15.5) % Plt Count 236 (140-440) K/uL Neut % (Auto) 74.3 H (42.0-72.0) % Lymph % (Auto) 18.4 L (20-44) % Citrus % (Auto) 5.4 (0.0-11.0) % Eos % (Auto) 0.9 (0.0-7.0) % Baso % (Auto) 0.6 (0.0-3.0) % Neut # (Auto) 8.50 H (1.7-7.0) K/uL Lymph # (Auto) 2.10 (0.90-2.90) K/uL Citrus # (Auto) 0.60 (0.00-0.90) K/UL Eos # (Auto) 0.10 (0.00-0.50) K/uL Baso # (Auto) 0.10 (0.00-0.30) K/uL Abs Immat Gran (auto) 0.00 (0.00-0.30) K/uL Imm/Tot Granulo (auto) 0.4 % D-Dimer Quant (PE/DVT) 0.48 (0.00-0.50) ug/ml Sodium 135 (135-149) mmol/L Potassium 3.7 (3.6-5.1) mmol/L Chloride 108 (96-114) mmol/L Carbon Dioxide 25 (20-32) mmol/L Anion Gap 2 L (7-15) mEq/L BUN 10 (7-30) mg/dL Creatinine 0.7 (0.5-1.5) mg/dL Estimated Creat Clear 45.50 Estimated GFR 90 ml/min Glucose 107 (60-115) mg/dL Calcium 8.5 (8.4-10.6) mg/dL Imaging Data Venous US: Attestation: I have reviewed the pertinent imaging results. Radiologist's impression: Patient: MECHE ARCE Facility:?[facility] Patient ID:?[id number] Site Patient ID:?[id number]. Site :?[id number] Study:?US-Extremity Left venous-10/27/2024 12:46:50 PM Ordering Physician:?Carmen Amaya Final Report: INDICATION: Pain and swelling TECHNIQUE: Ultrasound venous duplex lower left extremity. Compression venous exam was performed using peña-scale, color Doppler, and spectral Doppler analysis. COMPARISON: None FINDINGS: Sonographic imaging demonstrates the left common femoral, deep femoral, superficial femoral, popliteal, posterior tibial and greater saphenous and the contralateral right common femoral veins to be fully compressible with normal color Doppler blood flow. IMPRESSION: No convincing radiographic evidence of deep vein thrombosis within the visualized left lower extremity. Dictated by Hudson Coates MD @ 10/27/2024 1:21:33 PM (Electronic Signature) XR bilateral standing knees: Attestation: I have reviewed the pertinent imaging results. My impression: Patient has diminished joint space/narrowing medial components bilaterally, consistent with degenerative changes. Await Radiology over-read. Radiologist's impression: Patient: MECHE ARCE Facility:?[facility] Patient ID:?[id number] Site Patient ID:?[id number]. Site :?[id number] Study:?XRay-Knee Bilateral AP VIEW-10/27/2024 1:24:40 PM Ordering Physician:?Carmen Amaya Final Report: INDICATION: Left knee left leg pain TECHNIQUE: Single view of the knees FINDINGS/IMPRESSION: Normal alignment. No acute fracture or acute osseous abnormalities are visualized. Moderate osteoarthritis predominantly involving the medial compartments. Dictated by Rika Rodriguez MD @ 10/27/2024 2:07:26 PM (Electronic Signature) Discharge Plan Discharge Clinical Impression: Osteoarthritis of knees, bilateral, Acute UTI Patient Disposition: Home, Self-Care Condition: Stable Instructions: Osteoarthritis (ED), Urinary Tract Infection in Older Adults (ED) Additional Instructions: Will switch antibiotic from Bactrim to Keflex. Keflex is safer for underlying diminished kidney function from aging. Can use Tylenol per bottle directions for any knee pain. Can follow up with Orthopedics if ongoing pain, the pain into the medial leg is possibly stemming from medial need joint space osteoarthritis. Activity Level: Activity as Tolerated Prescriptions: New cephalexin 500 mg tablet 500 mg PO TID Qty: 21 0RF No Action sulfamethoxazole-trimethoprim 800-160 mg tablet 1 tab PO BID 7 Days Qty: 14 0RF atorvastatin 40 mg tablet 40 mg PO DAILY trazodone 100 mg tablet 100 mg PO QPM albuterol sulfate 90 mcg/actuation HFA aerosol inhaler 1 - 2 puff INHALATION Q4H PRN (Reason: dyspnea) fluoxetine 20 mg capsule 60 mg PO QAM spironolactone 50 mg tablet 50 mg PO DAILY bupropion HCl 300 mg tablet extended release 24 hr 300 mg PO DAILY oxybutynin chloride 10 mg tablet extended release 24hr 10 mg PO DAILY clopidogrel 75 mg tablet 75 mg PO DAILY metoprolol tartrate 50 mg tablet 50 mg PO BID modafinil 100 mg tablet 100 mg PO DAILY aspirin 81 mg tablet,delayed release (DR/EC) 81 mg PO DAILY acetaminophen 325 mg tablet 650 mg PO QID Qty: 120 0RF modafinil 100 mg tablet 100 mg PO DAILY Qty: 14 1RF Follow Up/Referrals: Maite Warner MD [Primary Care Provider] - Stand Alone Forms: [facility] Info Instructions
--- NOTE | 2024-10-27 12:07 | CRLHL7_ITS ---
For Patients: As a result of the Cures Act, medical imaging exams and procedure reports are released immediately into your electronic medical record. You may view this report before your referring provider. If you have questions, please contact your health care provider. INDICATION: Left knee left leg pain TECHNIQUE: Single view of the knees FINDINGS/IMPRESSION: Normal alignment. No acute fracture or acute osseous abnormalities are visualized. Moderate osteoarthritis predominantly involving the medial compartments. Dictated by Rika Rodriguez MD @ 10/27/2024 2:07:26 PM (Electronically Signed)
[2024-10-27 12:24] LABS: Basophils Percent Auto 0.6 % (0.0-3.0); Eosinophils Percent Auto 0.9 % (0.0-7.0); Hematocrit 34.7 % (33.0-51.0); Hemoglobin* 11.2 gm/dL (12.0-16.0); Immature Granulocytes Pct Auto 0.4 %; Lymphocytes Percent Auto 18.4 % (20-44); Mean Corpuscular HGB Conc 32 gm/dL (32-36); Mean Corpuscular Hemoglobin 31 pg (26-34); Mean Corpuscular Volume 96 fL (80-100); Monocytes Percent Auto 5.4 % (0.0-11.0); Neutrophils Percent Auto 74.3 % (42.0-72.0); Platelet Count* 236 K/uL (140-440); RDW Coefficient of Variation % 13.1 % (11.5-15.5); Red Blood Count 3.62 m/uL (4.00-5.20); White Blood Count* 11.38 K/uL (4.50-11.00)
[2024-10-27 12:26] LABS: Slide Review Reflex No
[2024-10-27 12:40] LABS: Chloride* 108 mmol/L (96-114); Potassium* 3.7 mmol/L (3.6-5.1); Sodium* 135 mmol/L (135-149)
[2024-10-27 12:43] LABS: Anion Gap 2 mEq/L (7-15); Blood Urea Nitrogen* 10 mg/dL (7-30); Carbon Dioxide* 25 mmol/L (20-32); Creatinine* 0.7 mg/dL (0.5-1.5); Estimated Glomerular Filt Rate 90 ml/min
[2024-10-27 12:44] LABS: Calcium* 8.5 mg/dL (8.4-10.6); Glucose* 107 mg/dL (60-115)
[2024-10-27 12:45] LABS: D Dimer Quantitative* 0.48 ug/ml (0.00-0.50)
== END 2024-10-27 15:03 | disposition home or self-care (01) ==
PROVIDERS: Emergency Provider Family Medicine; PCP Family Medicine
DX: M19.09 Primary osteoarthritis, other specified site (principal); N39.0 Urinary tract infection, site not specified
CPT/HCPCS: 36415; 73565; 80048; 85025; 85379; 93971; 99284

== ENCOUNTER 2024-11-25 16:40 | Outpatient (CLI) | payer MEDICARE, SELFPAY | END 2024-11-25 16:41 | disposition home or self-care (01) | LOC: AMB 12-07 02:02 | PROVIDERS: PCP Family Medicine; Visit Provider Student in an Organized Health Care Education/Training Program | DX: T14.90XA Injury, unspecified, initial encounter (principal); T68.XXXA Hypothermia, initial encounter; W19.XXXA Unspecified fall, initial encounter; Y93.9 Activity, unspecified; Y92.007 Garden or yard of unspecified non-institutional (private) residence as the place of occurrence of the external cause | CPT/HCPCS: A0425; A0429 ==

== ENCOUNTER 2024-11-25 17:26 | Emergency (ER) | payer MEDICARE, SELFPAY ==
[2024-11-25] VITALS (11 sets, daily range): BP systolic 105–143; BP diastolic 29–80; PULSE 59–68; RESP 16; TEMP 35.7; O2SAT 95–98; BMI 44.9
--- NOTE | 2024-11-25 17:45 | ED_ITS ---
HPI - Fall General Chief Complaint: Fall/Minor Trauma Stated Complaint: Fall Time Seen by Provider: 11/25/24 17:35 History of Present Illness HPI Narrative: Patient is a 74-year-old woman who decided to pick remover for [employer] packages outside her home today the noted is 20 below when chill. When out with night gown and no shoes. Patient slipped and fell. She did not hit her head. She did not lose consciousness but because it was slippery she was unable to get back up. She laid there for least an hour in the sub 0 temperature before she was able to slide on her stomach back into her entryway. Her daughter who lives across the street notice the door was open went to check on her. Patient was brought in by ambulance with a mild frostbite on the right thigh laterally as well as the toes of her feet. Patient states she feels fine and is not certain why she when out to get her am is on package is in this state. Patient has pre- existing gait issues. Patient is adamant that she did not hit her head did not lose consciousness and other than the burning in her extremities feels fine. She is completely oriented and shows no cognitive defects upon arrival. Related Data Home Medications ?Medication ?Instructions ?Recorded ?Confirmed albuterol sulfate 90 mcg/actuation 1 - 2 puff inhalation Q4H PRN 10/05/23 10/27/24 aerosol inhaler dyspnea aspirin 81 mg tablet,delayed 81 mg PO DAILY 10/05/23 10/27/24 release atorvastatin 40 mg tablet 40 mg PO DAILY 10/05/23 10/27/24 bupropion HCl 300 mg 24 hr tablet, 300 mg PO DAILY 10/05/23 10/27/24 extended release clopidogrel 75 mg tablet 75 mg PO DAILY 10/05/23 10/27/24 fluoxetine 20 mg capsule 60 mg PO QAM 10/05/23 10/27/24 metoprolol tartrate 50 mg tablet 50 mg PO BID 10/05/23 10/27/24 modafinil 100 mg tablet 100 mg PO DAILY 10/05/23 10/27/24 oxybutynin chloride 10 mg 10 mg PO DAILY 10/05/23 10/27/24 tablet,extended release 24 hr spironolactone 50 mg tablet 50 mg PO DAILY 10/05/23 10/27/24 trazodone 100 mg tablet 100 mg PO QPM 10/05/23 10/27/24 Previous Rx's ?Medication ?Instructions ?Recorded acetaminophen 325 mg tablet 650 mg (2 x 325 mg) PO QID #120 10/07/23 tabs modafinil 100 mg tablet 100 mg PO DAILY #14 tabs 10/07/23 cephalexin 500 mg tablet 500 mg PO TID #21 tabs 10/27/24 Allergies Allergy/AdvReac Type Severity Reaction Status Date / Time No Known Drug Allergies Allergy Verified 10/27/24 11:42 Review of Systems Status of ROS: Reports: 10 or more systems reviewed and unremarkable except as noted in History and below [facility] Medical History Spinal stenosis ?M48.00 - Spinal stenosis, site unspecified (ICD-10) CAD (coronary artery disease) ?I25.10 - Atherosclerotic heart disease of [place] coronary artery without angina pectoris (ICD-10) Sleep disorder ?G47.9 - Sleep disorder, unspecified (ICD-10) Venous insufficiency ?I87.2 - Venous insufficiency (chronic) (peripheral) (ICD-10) Coronary atherosclerosis ?I25.10 - Atherosclerotic heart disease of [place] coronary artery without angina pectoris (ICD-10) Depression ?F32.A - Depression, unspecified (ICD-10) CKD (chronic kidney disease) stage 2, GFR 60-89 ml/min ?N18.2 - Chronic kidney disease, stage 2 (mild) (ICD-10) Anemia, iron deficiency ?D50.9 - Iron deficiency anemia, unspecified (ICD-10) Thoracic aortic ectasia ?I77.810 - Thoracic aortic ectasia (ICD-10) Surgical History S/P coronary artery stent placement ?Z95.5 - Presence of coronary angioplasty implant and graft (ICD-10) S/P gastric bypass ?Z98.84 - Bariatric surgery status (ICD-10) Social History What is your current living situation?: I presently have a place to live Problems where you live: no known problems Problems where you live details: N/A In the past 12 months, utilities in danger of being shut off: no In past 12 months, lack of transportation kept you from medical appts, meetings, work, or getting things needed for daily living: no In the past 12 mos, have been you worried that your food would run out before you had money to buy more?: never true In the past 12 mos, the food you bought just didn't last and you didn't have money to buy more?: never true Highest level of school completed/degree received: Bachelor's degree Smoking Status: Former smoker Do you use any of these nicotine containing products: None How often do you have a drink containing alcohol: monthly or less How often do you have six or more drinks on one occasion: Never AUDIT-C Alcohol total score: 1 Non-prescribed substance use: denies use Caffeine: Yes How often does anyone, including family, friends and others, physically hurt you : never How often does anyone, including family, friends and others, insult or talk down to you: never How often does anyone, including family, friends and others, threaten you with harm: never How often does anyone, including family, friends and others, scream or curse at you: never service: No Exam Narrative: Exam Narrative: EXAM GENERAL: Patient appears comfortable and well. EYES: No scleral icterus. ENT: Tympanic membranes and oropharynx normal. THYROID: no thyroid nodules or thyromegaly. LYMPH: No supraclavicular or cervical lymphadenopathy. SKIN: Erythema the right lateral thigh and lower extremity consistent with mild frostbite. Minimal skin breakdown on the dorsal aspects of her toes bilaterally all digits consistent with frostbite. No signs of other tissue destruction or impaired circulation. EXT: No dependent lower extremity pedal edema. HEART: Regular rate and rhythm with no murmurs, rubs, or gallops. LUNGS: Clear to auscultation bilaterally with no crackles or wheezes. ABD: Soft, non tender, non distended. PSYCH: Good eye contact, speech is not pressured. Const: Vital Signs, click to edit/add: Vital Signs - 24 hr 11/25/24 17:28 11/25/24 18:26 11/25/24 18:30 Temperature 96.2 F L Pulse Rate 68 68 Pulse Rate [Pulse Oximeter] 68 Respiratory Rate 16 Blood Pressure Blood Pressure [Ri ght Upper Arm] 122/58 L Pulse Oximetry 95 95 97 Oxygen Delivery Me thod Room Air 11/25/24 18:33 11/25/24 18:45 11/25/24 19:00 Temperature Pulse Rate 67 66 60 Pulse Rate [Pulse Oximeter] Respiratory Rate Blood Pressure 133/63 Blood Pressure [Ri ght Upper Arm] Pulse Oximetry 96 98 98 Oxygen Delivery Me thod 11/25/24 19:02 11/25/24 19:15 11/25/24 19:30 Temperature Pulse Rate 59 L 61 63 Pulse Rate [Pulse Oximeter] Respiratory Rate Blood Pressure 143/80 H Blood Pressure [Ri ght Upper Arm] Pulse Oximetry 98 96 96 Oxygen Delivery Me thod 11/25/24 19:33 11/25/24 19:45 Temperature Pulse Rate 61 63 Pulse Rate [Pulse Oximeter] Respiratory Rate Blood Pressure 105/29 L Blood Pressure [Ri ght Upper Arm] Pulse Oximetry 98 97 Oxygen Delivery Me thod Course Course ED Course: Patient seen and examined. Her core body temperature was 96? when she arrived. We are aggressively warming her. In addition we will send off comprehensive metabolic panel lactate UA CBC. Reassess. Vital Signs Vital signs: Initial Vital Signs Temperature 96.2 F L 11/25/24 17:28 Temperature Source Temporal Artery Scan 11/25/24 17:28 Pulse Rate 68 11/25/24 17:28 Respiratory Rate 16 11/25/24 17:28 Blood Pressure 122/58 L 11/25/24 17:28 Blood Pressure Mean 79 11/25/24 17:28 Blood Pressure Position Supine 11/25/24 17:28 Pulse Oximetry 95 11/25/24 17:28 Oxygen Delivery Method Room Air 11/25/24 17:28 Vital Signs Temperature 96.2 F L 11/25/24 17:28 Pulse Rate 68 11/25/24 17:28 Respiratory Rate 16 11/25/24 17:28 Blood Pressure 122/58 L 11/25/24 17:28 Pulse Oximetry 95 11/25/24 17:28 Oxygen Delivery Method Room Air 11/25/24 17:28 Temperature 96.2 F L 11/25/24 17:28 Pulse Rate 63 11/25/24 19:45 Respiratory Rate 16 11/25/24 17:28 Blood Pressure 105/29 L 11/25/24 19:33 Pulse Oximetry 97 11/25/24 19:45 Oxygen Delivery Method Room Air 11/25/24 17:28 MDM - Fall MDM Narrative Medical decision making narrative: Patient is a 74-year-old woman who had a significant cold exposure tonight. She has an area of hyperemia on the right thigh and lower leg consistent with ramos nip. She also has abrasions or the superior aspect of her toes from crawling back into her house. I see no swelling or any type of tissue damage Sarah is compatible with significant frostbite. We did do laboratory evaluation she does have a mild increase in her CPK but is eating and drinking well. She also has leukocytosis no signs of infection. She did not hit her head. Workup is otherwise unremarkable. Patient's daughter is here and is agreeable to letting the patient go home and I do think that is reasonable. We did instruct her on wound care on the abrasions/ramos nip on the top of her toes. She will in drink well and avoid further cold exposure. Arrangements are in the works for placement in a assisted living facility. Again I see no evidence of tissue swelling or any jeopardized digits at this time. Lab Data Labs: Lab Results 11/25/24 11/25/24 Range/Units 18:43 18:47 WBC 15.31 H (4.50-11.00) K/uL RBC 4.48 (4.00-5.20) m/uL Hgb 13.6 (12.0-16.0) gm/dL Hct 42.6 (33.0-51.0) % MCV 95 (80-100) fL MCH 30 (26-34) pg MCHC 32 (32-36) gm/dL RDW Coeff of Yaron 13.0 (11.5-15.5) % Plt Count 275 (140-440) K/uL Neut % (Auto) 81.9 H (42.0-72.0) % Lymph % (Auto) 12.5 L (20-44) % [place] % (Auto) 4.3 (0.0-11.0) % Eos % (Auto) 0.6 (0.0-7.0) % Baso % (Auto) 0.4 (0.0-3.0) % Neut # (Auto) 12.50 H (1.7-7.0) K/uL Lymph # (Auto) 1.90 (0.90-2.90) K/uL [place] # (Auto) 0.70 (0.00-0.90) K/UL Eos # (Auto) 0.10 (0.00-0.50) K/uL Baso # (Auto) 0.10 (0.00-0.30) K/uL Abs Immat Gran (auto) 0.00 (0.00-0.30) K/uL Imm/Tot Granulo (auto) 0.3 % Sodium 135 (135-149) mmol/L Potassium 3.9 (3.6-5.1) mmol/L Chloride 103 (96-114) mmol/L Carbon Dioxide 25 (20-32) mmol/L Anion Gap 7 (7-15) mEq/L BUN 15 (7-30) mg/dL Creatinine 0.9 (0.5-1.5) mg/dL Estimated Creat Clear 43.74 Estimated GFR 67 ml/min Glucose 102 (60-115) mg/dL Lactate 1.6 (0.5-1.9) mmol/L Total Bilirubin 0.7 (0.1-1.5) mg/dL AST 25 (12-35) U/L ALT 19 (4-35) U/L Alkaline Phosphatase 117 (40-150) U/L Total Creatine Kinase 459 H (41-117) U/L Total Protein 6.8 (6.0-8.3) g/dL Albumin 4.3 (3.3-5.0) g/dL Urine Color Yellow (Yellow) Urine Appearance Clear (Clear) Urine pH 5.5 (5.0-8.5) Ur Specific [place] 1.015 (1.000-1.030) Urine Protein Negative (Negative) Urine Glucose (UA) Negative (Negative) Urine Ketones Negative (Negative) Urine Blood Trace-intact A (Negative) Urine Nitrite Negative (Negative) Urine Bilirubin Negative (Negative) Urine Urobilinogen 0.2 (0.2-1.0) Ur Leukocyte Esterase Negative (Negative) Urine RBC 0-2 (0-2) Urine WBC 0-2 (0-5) Ur Squamous Epith Cells Few (None-Few) Urine Bacteria None (None) Discharge Plan Discharge Clinical Impression: Cold injury Patient Disposition: Home, Self-Care Condition: Stable Instructions: Frostbite (ED) Additional Instructions: Bandage extremities as directed Avoid cold exposure Fluids Rest Leg elevation Daily dressing changes Follow-up with your doctor this week. Activity Level: No Restrictions Discharge Diet: Regular Prescriptions: No Action atorvastatin 40 mg tablet 40 mg PO DAILY trazodone 100 mg tablet 100 mg PO QPM albuterol sulfate 90 mcg/actuation HFA aerosol inhaler 1 - 2 puff INHALATION Q4H PRN (Reason: dyspnea) fluoxetine 20 mg capsule 60 mg PO QAM spironolactone 50 mg tablet 50 mg PO DAILY bupropion HCl 300 mg tablet extended release 24 hr 300 mg PO DAILY oxybutynin chloride 10 mg tablet extended release 24hr 10 mg PO DAILY clopidogrel 75 mg tablet 75 mg PO DAILY metoprolol tartrate 50 mg tablet 50 mg PO BID modafinil 100 mg tablet 100 mg PO DAILY aspirin 81 mg tablet,delayed release (DR/EC) 81 mg PO DAILY acetaminophen 325 mg tablet 650 mg PO QID Qty: 120 0RF modafinil 100 mg tablet 100 mg PO DAILY Qty: 14 1RF cephalexin 500 mg tablet 500 mg PO TID Qty: 21 0RF Follow Up/Referrals: Maite Warner MD [Primary Care Provider] - Stand Alone Forms: [employer] Info Instructions
[2024-11-25 18:52] LABS: Lactate* 1.6 mmol/L (0.5-1.9)
[2024-11-25 19:02] LABS: Appearance Urine Clear (Clear); Bilirubin Urine Negative (Negative); Blood Urine Trace-intact (Negative); Color Urine Yellow (Yellow); Glucose Urine Negative (Negative); Ketones Urine Negative (Negative); Leukocyte Esterase Urine Negative (Negative); Nitrite Urine Negative (Negative); Protein Urine Negative (Negative); Specific Gravity Urine 1.015 (1.000-1.030); Urobilinogen Urine 0.2 (0.2-1.0); pH Urine 5.5 (5.0-8.5)
[2024-11-25 19:05] LABS: Basophils Percent Auto 0.4 % (0.0-3.0); Eosinophils Percent Auto 0.6 % (0.0-7.0); Hematocrit 42.6 % (33.0-51.0); Hemoglobin* 13.6 gm/dL (12.0-16.0); Immature Granulocytes Pct Auto 0.3 %; Lymphocytes Percent Auto 12.5 % (20-44); Mean Corpuscular HGB Conc 32 gm/dL (32-36); Mean Corpuscular Hemoglobin 30 pg (26-34); Mean Corpuscular Volume 95 fL (80-100); Monocytes Percent Auto 4.3 % (0.0-11.0); Neutrophils Percent Auto 81.9 % (42.0-72.0); Platelet Count* 275 K/uL (140-440); Red Blood Count 4.48 m/uL (4.00-5.20); White Blood Count* 15.31 K/uL (4.50-11.00)
[2024-11-25 19:11] LABS: RBC Urine 0-2 (0-2); Squamous Epithelial Cell Urine Few (None-Few); WBC Urine 0-2 (0-5)
[2024-11-25 19:16] LABS: Slide Review Reflex No
[2024-11-25 19:33] LABS: Albumin* 4.3 g/dL (3.3-5.0); Chloride* 103 mmol/L (96-114); Sodium* 135 mmol/L (135-149)
[2024-11-25 19:34] LABS: Potassium* 3.9 mmol/L (3.6-5.1)
[2024-11-25 19:36] LABS: Alanine Aminotransferase* 19 U/L (4-35); Alkaline Phosphatase* 117 U/L (40-150); Anion Gap 7 mEq/L (7-15); Aspartate Amino Transferase* 25 U/L (12-35); Bilirubin Total* 0.7 mg/dL (0.1-1.5); Blood Urea Nitrogen* 15 mg/dL (7-30); Carbon Dioxide* 25 mmol/L (20-32); Creatine Kinase* 459 U/L (41-117); Creatinine* 0.9 mg/dL (0.5-1.5); Est. Creatinine Clearance* 43.74; Estimated Glomerular Filt Rate 67 ml/min; Glucose* 102 mg/dL (60-115); Total Protein* 6.8 g/dL (6.0-8.3)
[2024-11-25 19:37] LABS: Calcium* 9.1 mg/dL (8.4-10.6)
== END 2024-11-25 20:09 | disposition home or self-care (01) ==
PROVIDERS: Emergency Provider Internal Medicine; PCP Family Medicine
DX: T33 Superficial frostbite (principal); T33.71XA Superficial frostbite of right knee and lower leg, initial encounter; X31.XXXA Exposure to excessive natural cold, initial encounter
CPT/HCPCS: 36415; 80053; 81001; 81003; 82550; 83605; 85025; 99283

== ENCOUNTER 2025-09-03 09:59 | Outpatient (CLI) | payer MEDICARE, SELFPAY | END 2025-09-03 10:00 | disposition home or self-care (01) | LOC: AMB 09-04 13:18 | PROVIDERS: PCP Family Medicine; Visit Provider Student in an Organized Health Care Education/Training Program | DX: R51.9 Headache, unspecified (principal); R53.1 Weakness | CPT/HCPCS: A0425; A0427 ==

== ENCOUNTER 2025-09-03 10:23 | Emergency (ER) | payer MEDICARE, SELFPAY ==
[2025-09-03] VITALS (32 sets, daily range): BP systolic 112–137; BP diastolic 49–78; PULSE 70–80; RESP 16–29; TEMP 37.3; O2SAT 89–95; BMI 38.3
--- OUTSIDE RECORDS SUMMARY | 2025-09-03 10:31 | XMS_ITS | Clinical Summary ---
Author Organization [facility] Address [address] [place] [address] Care Team Providers Care Pattern Grader Name Role Phone Elsewhere, Pcp Primary Care Provider Unavailabl e Source Comments Patient records contain information from all sites at [facility]. For routine questions regarding patient records, call [phone] during business hours, M-F 8:00 AM - 5:00 PM Central Time. Record requests for emergency care only can be directed to [phone] at any time.[facility] Allergies No known active allergies Medications metoprolol tartrate (LOPRESSOR) 50 mg tablet Take 50 mg by mouth 2 (two) times a day. 09/15/2022 Active atorvastatin (LIPITOR) 40 mg tablet Take 40 mg by mouth daily. 01/13/2023 Active albuterol 90 mcg/actuation inhaler Inhale 2 puffs every 4 (four) hours as needed. 01/13/2023 Active acetaminophen (TYLENOL) 325 mg tablet Take 650 mg by mouth 4 (four) times a day. Active aspirin [address] tablet Take 1 tablet (81 mg total) by mouth daily. 30 tablet 10/18/2023 Active buPROPion XL (WELLBUTRIN XL) 300 mg 24 hr tablet Take 1 tablet (300 mg total) by mouth every morning. 30 tablet 10/18/2023 Active clopidogreL (PLAVIX) 75 mg tablet Take 1 tablet (75 mg total) by mouth daily. 30 tablet 10/18/2023 Active FLUoxetine (PROzac) 20 mg capsule Take 3 capsules (60 mg total) by mouth daily. 30 capsule 10/18/2023 Active modafiniL (PROVIGIL) 100 mg tablet Take 1 tablet (100 mg total) by mouth daily as needed (excessive sleepiness) for up to 14 days. 14 tablet 10/18/2023 Active spironolactone (ALDACTONE) 50 mg tablet Take 1 tablet (50 mg total) by mouth daily. 30 tablet 10/18/2023 Active traZODone (DESYREL) 100 mg tablet Take 1 tablet (100 mg total) by mouth at bedtime. 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 Biopsy. Found on a mammogram. Ectasia Thoracic Aortic 12/17/2021 Chronic Diastolic (Congestive) Heart Failure 08/2022 Stenosis Spinal Lumbar With Neurogenic Claudicat ion 09/19/2017 Atherosclerotic Heart Diseas e Of [place] Coronary Artery Without Angina Pectoris 09/10/2017 Deficiency Of Other Specified B Group Vitamins 0 01/23/2015 Deficiency Vitamin D 11/12/2010 Stress Incontinence Female Male 07/19/2007 Dyslipidemia 02/15/2007 Gastroesophageal Reflux Disease NOS 02/15/2007 Overview (10/11/2023): Gastroesophageal Reflux Sleep Apnea Unspecified 02/15/2007 Overview (10/11/2023): Doesn't use CPAP Immunizations Immunization Administration Dates Next Due H1N1 Inj 10/16/2009 HZV (ZOSTAVAX) 10/14/2015 Influenza TIV (IM) 09/05/2012, 2,07/02/2011,2009,08/28/2008,09/19/2006,08/23/2005,1 ,08/23/2003 Influenza high dose QV(65 ye ars or older) (PF) 07/14/2023 Influenza, Quadrivalent, Adj uvanted, Preservative Free 07/19/2022,07/28/2021,07/30/2020 Influenza, Seasonal, Injectable 09/05/20 12,07/19/2012,08/28/2008,2005,08/23/2005,08/18/2004,08/23/2003 PCV13 12/31/2014 PPSV23 05/25/2016 RSV: respiratory syncytial v irus (ABRYSVO) bivalent vaccine 08/29/2023 SARS-COV-2 (COVID-19) - PFIZ ER (Discontinued)(12 years or older) 08/01/2021 Tdap 07/14/2007 Tuberculin Skin Test, Unspecified 09/20/2017 influenza trivalent high dos e (HD)(PF) 08/02/2018,07/28/2017,08/09/2016,2014 influenza trivalent vaccine (6 months and older)(PF) 07/02/2011,07/23/2010 influenza vaccine quad (FLUZ ONE) (6 months-35 months) (PF) 07/30/2013 influenza vaccine quad (FLUZONE/FLUARIX) (6 months and older)(PF) 07/25/2019 Social History Tobacco Use Types Packs/Day Years Used Date Smoking Tobacco: Former Cigarettes 2 30 0 11/07/1967 - 11/07/1997 Smokeless Tobacco: Never Tobacco Cessation:Counseling Given: Yes Comments No Sex and Gender Information Value Date Recorded Sex Assigned at Not on file Legal Sex Female 3:22 PM [employer] Gender Identity Not on file Sexual Orientation Not on file Last Filed Vital Signs Vital Sign Reading Time Taken Comments Blood Pressure 116/77 10/18/2023 9:05 AM HE[employer] LIFT RIGGER Pulse 74 10/18/2023 9:05 AM [employer] LIFT RIGGER Temperature 37 C (98.6 F) 10/18/2023 9:05 AM HEAVY LIFT RIGGER Respiratory Rate 18 10/18/2023 9:05 AM HEAVY LIFT RIGGER Oxygen Saturation 98% 10/18/2023 9:05 AM HEAVY LIFT RIGGER Inhaled Oxygen Concentration - - Weight 122 kg (268 lb 8 oz) 10/18/2023 9:[address] Height - - Body Mass Index - - Plan of Treatment Health Maintenance Due Date Last Done Comments Bone Density Scan (Osteoporosis Screen) 1949 CT Colonography 1950 Colonoscopy 1950 FIT 1950 Hepatitis C Screening 1950 Zoster Vaccines (1 of 2) 12/09/2015 10/14/2015 DTaP,Tdap,and Td Vaccines (2 - Td or Tdap) 07/14/2017 07/14/2007 Mammogram 07/30/2021 07/30/2020 Office Visit for Blood Pressure Check / Re-check 10/18/2024 10/18/2023 Depression Screening (Annual PHQ-2) 11/07/2024 Fall Risk Screen (Annual) 11/07/2024 Creatinine Level (Kidney Function Test) 04/16/2025 04/16/2024, 12/29/2023, 12/02/2023, Additional history exists Potassium Level 04/16/2025 04/16/2024, 12/09, 12/02/2023, Additional history exists Sodium Level 04/16/2025 04/16/2024, 12/09, 12/02/2023, Additional history exists COVID-19 Vaccine ( season) 2025 08/29/2023, 07/19/2022, 02/03/2022, Additional history exists Influenza Vaccine (#1) 2025 , 07/19/2022, 07/28/2021, Additional history exists Cologuard 01/27/2026 01/27/2023 Colorectal Cancer Screening 01/27/2026 Fasting Glucose for Diabetes Screening 04/16/2027 04/16/2024, 12/29/2023, 12/02/2023, Additional history exists Lipid (Cholesterol) Screening 12/02/2028 12/02/2023, 01/19/2023, 07/28/2021, Additional history exists Pneumococcal vaccine (50+ years) Completed 05/25/2016, 12/31/2014 RSV vaccine - (32-36 weeks) or 50+ years Completed 08/29/2023 HPV Vaccines Aged Out No longer eligi ble based on patient's age to complete this topic IPV Vaccines Aged Out No longer eligi ble based on patient's age to complete this topic Procedures Procedure Name Priority Date/Time Associated Diagnosis Comments BASIC METABOLIC PANEL, S/P STAT 10/18/2023 7:00 AM HEAV[employer] LIFT RIGGER Stroke (HCC) from Last 3 Months or Most Recently Relevant to Health Maintenance Results * (ABNORMAL) Basic Metabolic Panel (10/18/2023 7:00 AM HEAVY LIFT RIGGER) Potassium, P 4.3 3.6 - 5.2 mmol/L 10/18/2023 8:23 AM HEAVY LIFT RIGGER NPRG Sodium, P 140 135 - 145 mmol/L 10/18/2023 8:23 AM HEAV[employer] LIFT RIGGER NPRG Chloride, P 106 98 - 107 mmol/L 10/18/2023 8:23 AM HEAV[employer] LIFT RIGGER NPRG Bicarbonate, P 22 22 - 29 mmol/L 10/18/2023 8:22 AM HEAV[employer] L[employer] RIGGER NPRG Anion Gap, P 12 7 - 15 10/18/2023 8:23 AM HEAV[employer] LIFT RIGGER NPRG BUN (Blood Urea Nitrogen), P 15 6 - 21 mg/dL 10/18/2023 8:22 AM HEAV[employer] L[employer] RIGGER NPRG Creatinine 0.76 0.59 - 1.04 mg/dL 10/18/2023 8:22 AM HEAV[employer] LIFT RIGGER NPRG Estimated GFR (eGFR) 82 >=60 mL/min/BSA 10/18/2023 8:22 AM HEAVY LIFT RIGGER NPRG Comment: Estimated GFR calculated using the 2020 CKD_EPI creatinine equation. Calcium, Total, P 8.6(L) 8.8 - 10.2 mg/dL 10/18/2023 8:22 AM HEAV[employer] L[employer] RIGGER NPRG Glucose, P 104 70 - 140 mg/dL 10/18/2023 8:22 AM HEAV[employer] LIFT RIGGER NPRG Blood (Blood, Venous) 10/18/2023 7:00 AM HE[employer] LIFT RIGGER 10/18/2023 7:59 AM HEAV[employer] LIFT RIGGER us Yamileth Singh APRN, C.N.P. LAB BLOOD ADD-ON Fi nal Result [facility] [address] [place] [address], [place] NPRG [facility] [address] [place] [address] from Last 3 Months or Most Recently Relevant to Health Maintenance Insurance [facility] Advance Directives For more information, please contact: [phone] Documents on File Type Date Recorded Patient Poolroom Table Attendant Expl anation Advance Directives 10/11/2023 10:[address]/MOLST Care Teams Pattern Grader Relationship Specialty Start Date End Date Elsewhere, Pcp PCP - General Internal Medicine 10/19/23
--- OUTSIDE RECORDS SUMMARY | 2025-09-03 10:32 | XMS_ITS | Clinical Summary ---
Author Organization [facility] Address [address] [place] [address] Care Team Providers Care [address] Car Mechanic Name Role Phone Maite Warner MD Primary Care Provide r Simona Hunter MBBS Unavailable [phone] Helen Polk MBBS Unavailable Lu Patel RN Unavailable [phone] [facility] Unavailable Catie Reis ORTHOPEDICS PEDIATRIC PHYSICIAN Unavailable Kristy Hooker MD Unavailable Jack Mccall ORNAMENTAL IRON WORKER Unavailable Unavailable Allergies Active Allergy Reactions Criticality Noted Date Comments Nsaids (Non-Steroidal Anti-Inflammatory Drug) Other - Describe In Comment Field High 11/20/2007 S/P Gastric Bypass: Told to Avoid by Surgeon Ticlopidine Hivrosa 02/15/2007 Medications aspirin (ECOTRIN) 81 mg enteric coated tablet Take 1 tablet by mouth once daily with a meal. 0 015 Active acetaminophen (TYLENOL EXTRA STRGTH) 500 mg tablet Take 1,000 mg by mouth 3 times daily. Max acetaminophen dose: 4000mg in 24 hrs. Active Cyanocobalamin 2,[address] 2,500 mcg under the tongue once daily. Active loperamide (IMODIUM) 2 mg capsule Take 2 mg by mouth once daily. Take 4mg by mouth with 1st loose stool, then 2mg with each subsequent loose stool. Max 16 mg in 24 hrs Active multivitamin (MVI) tablet Take 1 tablet by mouth once daily. 0 018 Active diclofenac topical (VOLTAREN) 1 % gelIndications:A cute pain of right shoulder Apply 2 g topically to affected area(s) 4 times daily if needed (pain). 100 g 1 024 Active albuterol HFA (PRO-AIR; VENTOLIN; PROVENTIL) 90 mcg/actuation inhalerIndicatio ns:BLACK (dyspnea on exertion) INHALE 1 TO 2 PUFFS BY MOUTH EVERY 4 HOURS NEEDED FOR SHORTNESS OF BREATH 6.7 g 024 Active torsemide (DEMADEX) 5 mg tabletIndication s:Bilateral lower extremity edema Take 1 Tablet (5 mg) by mouth once daily. 90 Tablet 3 024 Active Additional Information Patient not taking.Reported on 05/17/2025 durable medical equipment (DME)Indications :Left hemiparesis (HC),Monoplegia, lower limb, nondominant side S/P CVA (cerebrovascular acc) (HC) Lift chair, S/P CVA 1 Each 024 Active buPROPion (WELLBUTRIN XL) 150 mg Extended-Release tabletIndication s:Persistent depressive disorder,Major depressive disorder, recurrent, moderate (HC) Take 1 Tablet (150 mg) by mouth once daily in the morning. 90 Tablet 3 024 2024 Active FLUoxetine (PROZAC) 40 mg capsuleIndicatio ns:Persistent depressive disorder,Major depressive disorder, recurrent, moderate (HC) Take 2 Capsules (80 mg) by mouth once daily. 180 Capsule 3 024 Active nitroglycerin 0.4 mg sublingual tabletIndication s:Coronary artery disease without angina pectoris, unspecified vessel or lesion type, unspecified whether [place] or transplanted heart Place 1 Tablet (0.4 mg) under the tongue every 5 minutes if needed for Chest Pain. 25 Tablet 025 Active traZODone 100 mg tabletIndication s:Depression, unspecified depression type Take 1 Tablet (100 mg) by mouth at bedtime. 90 Tablet 3 025 Active metoprolol tartrate (LOPRESSOR) 50 mg tabletIndication s:Essential hypertension with goal blood pressure less than 140/90 TAKE 1 TABLET(50 MG) BY MOUTH TWICE DAILY 180 Tablet 1 025 Active celecoxib (CELEBREX) 200 mg capsuleIndicatio ns:Lumbar radiculopathy TAKE 1 CAPSULE(200 MG) BY MOUTH DAILY WITH A MEAL 90 Capsule 1 025 Active spironolactone (ALDACTONE) 50 mg tabletIndication s:Hair loss,Diastolic dysfunction TAKE 1 TABLET(50 MG) BY MOUTH DAILY 90 Tablet 025 Active solifenacin (VESICARE) 10 mg tabletIndication s:Urge incontinence of urine TAKE 1 TABLET BY MOUTH DAILY 90 Tablet 025 Active atorvastatin (LIPITOR) 40 mg tabletIndication s:CAD in [place] artery TAKE 1 TABLET(40 MG) BY MOUTH AT BEDTIME 90 Tablet 1 025 Active clopidogreL (PLAVIX) 75 mg tabletIndication s:CAD in [place] artery,S/P coronary artery stent placement Take 1 Tablet (75 mg) by mouth once daily in the morning. 90 Tablet 025 Active modafiniL (PROVIGIL) 100 mg tabletIndication s:Sleep-wake cycle disorder Take 1 Tablet (100 mg) by mouth once daily in the morning. 90 Tablet 025 Active atorvastatin (LIPITOR) 40 mg tabletIndication s:CAD in [place] artery Take 1 Tablet (40 mg) by mouth at bedtime. 90 Tablet 3 024 2024 Discontinued clopidogreL (PLAVIX) 75 mg tabletIndication s:CAD in [place] artery,S/P coronary artery stent placement Take 1 Tablet (75 mg) by mouth once daily in the morning. 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) - Signed by Kristy Hooker MD on 12/12/2023 Major depressive disorder, r ecurrent, moderate, exacerbated by cerebrovascular accident in 09/202312/02/2023 History of falling 10/11/2023 Hypertensive heart and chron ic kidney disease with heart failure and stage 1 through stage 4 chronic kidney disease, or unspecified chronic kidney disease 10/11/2023 Iron deficiency anemia 10/11/2023 Closed fracture of distal end of left radius 08/2023 CKD (chronic kidney disease) stage 2, GFR 60-89 ml/min 03/16/2023 Heart failure with preserved ejection fraction 0 12/17/2021 Thoracic aortic ectasia 12/17/2021 Obesity, morbid 12/17/2021 Chronic diastolic (congestive) heart failure 08/2022 CAD in k[place] artery 07/22/2021 Skin cancer 08/25/2020 Overview (10/09/2020): 08/2020, basal cell carcinoma, left upper back, s/p Excision Acute cholecystitis 11/25/2017 Choledocholithiasis 11/25/2017 Severe sepsis 11/25/2017 Acute pancreatitis 11/25/2017 Spinal stenosis, lumbar region with neurogenic c laudication 09/19/2017 03/16/2023 Atherosclerosis of coronary artery of kobuk heart without angina pectoris 09/10/2017 Complete rotator cuff tear of left shoulder 11/07 S/P gastric bypass 2006 Dr. Cortés 01/23/2015 Venous insufficiency 01/23/2015 Overview (01/23/2015): Evaluated by Dr. Arias 2014 Vitamin B12 deficiency 01/23/2015 Overview (01/23/2015): Has been using nyme-eco-abrkgaa sublingual tabs rather than the injections lately. Vitamin D deficiency 11/12/2010 Persistent depressive disorder 07/19/2007 Female stress incontinence 07/19/2007 Essential hypertension 02/15/2007 Gastroesophageal reflux disease 02/15/2007 Overview (06/04/2024): Gastroesophageal Reflux Gastroesophageal Reflux Unspecified sleep apnea 02/15/2007 Overview (11/25/2017): Doesn't use CPAP Dyslipidemia 02/15/2007 Other and unspecified disc disorder of lumbar re gion 02/15/2007 Resolved Problems Problem Noted Date Diagnosed Date Resolved Date Persistent depressive disorder 06/04/2024 06/04/2024 Depression due to acute cere brovascular accident (CVA) 06/04/2024 06/04/2024 Depression as late effect of cerebrovascular accident (CVA) 06/04/2024 07/17/2024 Lymphoma 06/04/2024 06/04/2024 Lymphoma, large-cell, diffuse 03/16/2023 06/04/2024 Overview (06/04/2024): 03-02-23. Biopsy. Found on a mammogram. Documented on 07/07/2023 03-02-23. Biopsy. Found on a mammogram. Depression, recurrent 12/17/20212023 Dyspnea on exertion 07/22/2021 03/16/20 23 Spinal stenosis of lumbar region 09/16/2017 03/16/2023 History of diabetes mellitus 05/25/2016 11/25/2017 Other B-complex deficiencies 11/05/2010 01/23/2015 Other and unspecified postsu rgical nonabsorption 11/05/2010 10/05/2012 Achlorhydria 11/05/2010 10/05/2012 Bariatric surgery status 10/06/2007 Morbid obesity 07/19/2007 04/10/2009 Type II or unspecified type diabetes mellitus without mention of complication, not stated as uncontrolled 07/19/2007 10/05/2012 Unspecified sleep apnea 07/19/200709/08 Essential hypertension, benign 07/19/2007 04/10/2009 Pure hypercholesterolemia 07/19/2007 Old myocardial infarction 07/19/2007 Esophageal reflux 07/19/2007 10/05/2012 Generalized osteoarthrosis, involving multiple sites 07/19/2007 10/05/2012 Displacement of intervertebr al disc, site unspecified, without myelopathy 07/19/2007 04/10/20 09 MYOCARDIAL INFARCTION, ACUTE 07/14/2007 01/23/2015 Overview (07/14/2007): Myocardial Infarction Paroxysmal supraventricular tachycardia 07/14/2007 10/05/2012 Overview (07/14/2007): ABALATION Other and unspecified ovarian cyst 07/14/2007 10/05/2012 Displacement of lumbar inter vertebral disc without myelopathy 05/31/2007 05/31/2008 Coronary atherosclerosis of unspecified type of vessel, kobuk or graft 03/09/2007 09/10/2017 Overview (01/23/2015): S/P VA 2006. RCA 100% 2 stents placed 1997. Established care with Dr. Arias 2014 Congestive heart failure, unspecified 02/15/2007 05/25/2016 Obesity, unspecified 02/15/2007 015 Osteoarthrosis, unspecified whether generalized or localized, unspecified site 02/15/2007 05/25/2016 Type II or unspecified type diabetes mellitus without mention of complication, not stated as uncontrolled 05/03/2006 04/10/2009 BLACK (dyspnea on exertion) Encounters Date Type Department Care Team Description 09/03/2025 Nurse Triage [facility] [address] [place] [address] Maite Warner MD Weak 09/02/2025 Refill [facility] [address] [place] [address] Maite Warner MD Refill Request (Modafinil) 09/02/2025 Telephone [facility] [address] [place] [address] Atif Verdugo MD Late Cancel Appointment 08/25/2025 Refill [facility] [address] [place] [address] Atif Verdugo MD Refill Request (Fluoxetine) 08/20/2025 Refill [facility] [address] [place] [address] Nomi Adler MD Refill Request (Atorvastatin, Clopidogrel 75mg tablets) 07/24/2025 Travel 07/19/2025 Telephone [facility] [address] [phone] Oncology, [facility] Appointment 07/19/2025 Refill [facility] [address] [place] [address] Maite Warner MD Refill Request (Spironolactone, Solifenacin) 07/15/2025 Refill [facility] [address] [place] [address] Maite Warner MD Refill Request (Celecoxib) 06/10/2025 Telephone [facility] [address] [place] [address] Maite Warner MD Medication Management (MODAFINIL) from Last 3 Months Immunizations Immunization Administration Dates Next Due AMB Influenza, IIV4 PF (=>6 mos Flulaval,Fluzone Fluarix)(Flu Clinic Only) 07/25/2019 Amb Influenza, Inactivated A IIV4 (Age 65+ Years) Preserv Free 07/30/2020 COVID-19 VACCINE SPIKEVAX (M ODERNA 50MCG/0.5ML) 12YO+ PFS 07/31/2024 COVID-19 vaccine (Pfizer-Bio NTech 30mcg/0.3mL) 12YO+ INDERJIT-SUCROSE PF, MDV 02/03/2022 COVID-19 vaccine (Pfizer-Bio NTech 30mcg/0.3mL) PF, MDV 08/01/2021,01/27/2021,01/06/2021 Influenza A (H1N1), Inactiva selvin (Age >=3 Years) 10/16/2009 Influenza, High-dose Inactivated 018,07/28/2017,08/09/2016,08/15 Influenza, High-dose Quadriv alent Inactivated 07/14/2023 Influenza, IIV3 (Age >=3 years) 09/05/20 12,07/19/2012,07/02/2011,07/23,08/28/2008,09/19/2006,08/23/2005 ,08/18/2004,08/23/2003 Influenza, IIV4 (Age 6-35 Mos) 07/30/2013 Influenza, Inactivated AIIV4 (Age 65+ Years) Preserv Free 07/19/2022,07/28/2021 Influenza, Inactivated IIV3 (Age 65+ Years) Preserv Free 07/31/2024 Pneumococcal Poly,23-Valent (Pneumovax) 05/25/2016 Pneumococcal conj 13-Valent (Prevnar 13) 12/31/2014 RSV, Bivalent Vaccine Recons tituted (Abrysvo 120MCG/0.5mL) 08/29/2023 Tdap 07/14/2007 Tuberculin (PPD) 04/14/2015, 3,02/26/2013,03/03,02/13/2010 Tuberculin Skin Test, Unspecified 09/20/2017 Zoster (Zostavax-ZVL, live) 10/14/2015 Family History Medical History Relation Name Comments Heart Disease Father d 35 [facility] Psychiatric illness Mother d 52 yo suicide Cancer-breast Other NIECE Depression Sister 2 Heart Disease Sister 2 Depression Sister 3 Heart Disease Sister 3 Cancer-breast Sister 4 1/2 sister Other Sister 5 all 3 sisters h ave had gastric bypass for obesity Cancer-ovarian No Family History Relation Name Status Comments Father Mother Other NIECE Alive Sister 1 Sister 2 Sister 3 Sister 4 Sister 5 Social History Tobacco Use Types Packs/Day Years Used Date Smoking Tobacco: Former Cigarettes 2 30 0 11/07/1967 - 11/07/1997 Smokeless Tobacco: Never Tobacco Cessation:Counseling Given: Yes Comments:exposed to second hand smoke Alcohol Use Standard Drinks/Week Comments Not Currently 1 (1 standard drink = 0.6 oz pur e alcohol) rare PHQ-2 Answer Date Recorded PHQ-2 TOTAL SCORE 3 09/18/2024 Social Connections Answer Date Recorded Do you often feel lonely or isolated from those around you? 4 02/08/2025 Financial Resource Strain Answer Date R ecorded Difficulty of Paying Living Expenses 2 02/08/2025 Difficulty of Paying Living Expenses 1 02/08/2025 Food Insecurity Answer Date Recorded Do you worry your food will run out before you are able to buy more? 1 02/08/2025 Transportation Needs Answer Date Record ed Does lack of transportation keep you from medica l appointments? 2 02/08/2025 Does lack of transportation keep you from work, meetings or getting things that you need? 2 02/08/2025 Housing Stability Answer Date Recorded What is your housing situation today? 1 02/08/2025 Utilities Answer Date Recorded Do you have trouble paying f or utilities (for example, heat, electricity, water, phone)? 1 02/08/2025 Comments No Sex and Gender Information Value Date Recorded Sex Assigned at Not on file Legal Sex Female 5:24 AM [facility] Gender Identity Not on file Sexual Orientation Not on file Occupation Industry Job Start Date Job End Date Not on file Not on file Not on file Not on file Obstetrics History Para Term AB IAB SAB Ectopic Multiple Livin g Live Births 4 4 4 0 0 0 0 0 4 Date Outcome GA Total Labor Labor/2nd/3rd Weight Sex Type Anes PTL Lindsay A1 A5 Name Clin Term Term Term Term Comments x4 1 adopted child Last Filed Vital Signs Vital Sign Reading Time Taken Comments Blood Pressure 118/59 05/17/2025 10:06 AM CDT Pulse 54 05/17/2025 10:06 AM CDT Temperature 37.1 C (98.8 F) 05/17/2025 10:06 AM CDT Respiratory Rate 16 05/17/2025 10:0 6 AM CDT Oxygen Saturation 92% 05/17/2025 10: 06 AM CDT Inhaled Oxygen Concentration - - Weight 96.1 kg (211 lb 12.8 oz) 025 10:06 AM CDT Height 165.1 cm (5' 5) 03/17/2023 10:2 5 AM CDT Body Mass Index 35.25 03/17/2023 10:25 AM CDT Plan of Treatment Upcoming Encounters Date Type Department Care Team (Late st Contact Info) Description 09/17/2025 10:15 AM [facility] Orders Only [facility] [address] [facility] [place] [address] [place], [place] 09/24/2025 11:00 AM [facility] Office Visit [facility] [address] [facility] [place] [phone] Kristy Hooker MD [address] [facility] [place] [address] 10/01/2025 9:30 AM [facility] Office Visit [facility] [address] [place] [id number] Atif Verdugo MD [address] [place] [id number] Health Maintenance Due Date Last Done Comments Zoster (shingles) series for age 50+ (1 of 2) 12/09/2015 10/14/2015 Tetanus booster 07/14/2017 07/14/2007 BMI (ht and wt on same day) for age 18+ 03/16/2024 03/16/2023, 09/15/2022, 02/15/2022, Additional history exists Influenza Vaccine (#1) 2025 , 07/19/2022, 07/28/2021, Additional history exists Medicare Wellness for age 65+ 08/01/2025 07/31/2024, 01/23/2015 Depression screening for age 12+ 09/18/2025 09/18/2024, 09/18/2024, 08/03/2024, Additional history exists Fecal testing sDNA-FIT (Cologuard) for age 45-75 01/27/2026 01/27/2023 Lipids for age 45-75 12/02/2028 12/02/2023, 01/19/2023, 07/28/2021, Additional history exists Hepatitis C screening for age 18-79 Completed 06/27/2013 DEXA/DXA scan for age 65+ Completed 12/31/2014, 09/2009 Pneumococcal series for age 50+ Completed 05/25/2016, 12/31/2014 RSV vaccine for adults or Completed 08/29/2023 Hepatitis B series for 19+ Aged Out N o longer eligible based on patient's age to complete this topic Medical Devices Implanted Type Area Zipper Cutter Device Identifier Shelf Expiration Date Model / Serial / Lot [id number] niaderm 2x12mm [[id number]] Implanted:Qty: 1 on 07/19/2007 at [facility] Explanted:at [facility] (Quantity not on file) Abdomen LIFECELL BLANKA [id number]# / [id number] / Bone Matrix Sm Infuse Bmp - [id number] Implanted:Qty: 1 on 09/16/2017 by Carlos Klein MD at [facility] N/A: Spine Medtronic Spine/Ortho 09/06/2019 [id number]# / / [id number] A Spacer Lmbr [id number] 12deg Elevate Extra-Lordotic Peek Tit - [id number] Implanted:Qty: 1 on 09/16/2017 by Carlos Klein MD at [facility] N/A: Spine Medtronic Spine/Ortho 07/28/2024 [id number] / / [id number] Set Screw Lmbr 4.90n01lm Solera 4.75 Ns Brk Off - [id number] Implanted:Qty: 4 on 09/16/2017 by Carlos Klein MD at [facility] N/A: Spine Medtronic Spine/Ortho [id number]# / / Screw Lmbr Post 7.5x45mm Solera 4.75 Va - [id number] Implanted:Qty: 1 on 09/16/2017 by Carlos Klein MD at [facility] N/A: Spine Medtronic Spine/Ortho [id number] 45# / / Screw Lmbr Post 7.5x50mm Solera 4.75 Va - [id number] Implanted:Qty: 3 on 09/16/2017 by Carlos Klein MD at [facility] N/A: Spine Medtronic Spine/Ortho [id number] 50# / / Kodi Lmbr 35mmx4.75cm Solera 4.75 Cvd Co Cr - [id number] Implanted:Qty: 2 on 09/16/2017 by Carlos Klein MD at [facility] N/A: Spine Medtronic Spine/Ortho [id number] 5# / / Procedures Procedure Name Priority Date/Time Associated Diagnosis Comments LIPID PANEL W REFLEX MEASURED LDL Routine 12/02/2023 12:18 PM [facility] Cerebrovascular accident (CVA), unspecified mechanism (HC) SDNA-FIT EXTERNAL (COLOGUARD) Routine 01/27/2023 9:00 AM CDT Screening for colon cancer XR DXA BONE DENSITY 2 SITES AXIAL Routine 12/31/2014 10:14 AM [facility] Senile osteoporosis ANTI HCV Routine 06/27/2013 4:30 PM CDT Needle stick injury from Last 3 Months or Most Recently Relevant to Health Maintenance Results * LIPID PANEL W REFLEX MEASURED LDL (12/02/2023 12:18 PM [facility]) Pathologist [facility] CHOLESTEROL,TOTAL 114 100 - 199 mg/dL 12/02/2023 10:18 PM [facility] Comment: Cholesterol, Total Reference Ranges Desirable <200 mg/dL Borderline 200-239 mg/dL High >=240 mg/dL TRIGLYCERIDES 127 <150 mg/dL 12/02/2023 10:18 PM [facility] HDL CHOLESTEROL 55 >40 mg/dL 10:18 PM [facility] NON-HDL CHOLESTEROL 59 <145 mg/dl 12/02/2023 10:18 PM [facility] CHOL/HDL RATIO 2.07 <4.50 12/02/2023 10:18 PM [facility] LDL CHOLESTEROL 34 <=130 mg/dL 12/02/2023 10:18 PM [facility] VLDL CHOLESTEROL 25 <=30 mg/dL 12/02/2023 10:18 PM [facility] PROVIDER ORDERED STATUS RANDOM 12/02/2023 10:18 PM [facility] Blood BLOOD SPECIMEN / Unknown Venipuncture / Unknown 12/02/2023 12:18 PM [facility] 12/02/2023 12:20 PM [facility] us Maite Warner MD CHEMISTRY Final Result [facility] [address] [place] [address], * SDNA-FIT EXTERNAL (COLOGUARD) (01/27/2023 9:00 AM CDT) NONINV COLON CA DNA+OCC BLD SCRN STL-IMP Negative Negative 02/05/2023 1:14 PM CDT [facility] (CLIA #:[id number]) Comment: NEGATIVE TEST RESULT. A negative Cologuard result indicates a low likelihood that a colorectal cancer (CRC) or advanced adenoma (adenomatous polyps with more advanced pre-malignant features) is present. The chance that a person with a negative Cologuard test has a colorectal cancer is less than 1 in 1500 (negative predictive value >99.9%) or has an advanced adenoma is less than 5.3% (negative predictive value 94.7%). These data are based on a prospective cross-sectional study of 10,000 individuals at average risk for colorectal cancer who were screened with both Cologuard and colonoscopy. (Juliet Carter et al, N Engl J Med 2014;370(14):4553-0676) The normal value (reference range) for this assay is negative. COLOGUARD RE-SCREENING RECOMMENDATION: Periodic colorectal cancer screening is an important part of preventive healthcare for asymptomatic individuals at average risk for colorectal cancer. Following a negative Cologuard result, the [place] Cancer Society and U.S. Multi-Society Task Force screening guidelines recommend a Cologuard re-screening interval of 3 years. References: [place] [employer] Guideline for Colorectal Cancer Screening: https://www.cancer.org/cancer/ptygw-ibubal-dtkuaq/efaafyvow-xeuypjzgc-kcdzsoy/ac s-rec ommendations.html.; Eduin DK, Jaycob BARRIOS, Thelma FordK, Colorectal Cancer Screening: Recommendations for Physicians and Patients from the U.S. Multi-Society Task Force on Colorectal Cancer Screening , Am J Gastroenterology 2017; 112:9757-3099. TEST DESCRIPTION: Composite algorithmic analysis of stool DNA-biomarkers with hemoglobin immunoassay. Quantitative values of individual biomarkers are not reportable and are not associated with individual biomarker result reference ranges. Cologuard is intended for colorectal cancer screening of adults of either sex, 45 years or older, who are at average-risk for colorectal cancer (CRC). Cologuard has been approved for use by the U.S. FDA. The performance of Cologuard was established in a cross sectional study of average-risk adults aged 50-84. Cologuard performance in patients ages 45 to 49 years was estimated by sub-group analysis of near-age groups. Colonoscopies performed for a positive result may find as the most clinically significant lesion: colorectal cancer [4.0%], advanced adenoma (including sessile serrated polyps greater than or equal to 1cm diameter) [20%] or non- advanced adenoma [31%]; or no colorectal neoplasia [45%]. These estimates are derived from a prospective cross-sectional screening study of 10,000 individuals at average risk for colorectal cancer who were screened with both Cologuard and colonoscopy. (Juliet Carter et al, N Engl J Med 2014;370(14):7540-1011.) Cologuard may produce a false negative or false positive result (no colorectal cancer or precancerous polyp present at colonoscopy follow up). A negative Cologuard test result does not guarantee the absence of CRC or advanced adenoma (pre-cancer). The current Cologuard screening interval is every 3 years. ([place] [employer] and U.S. Multi-Society Task Force). Cologuard performance data in a 10,000 patient pivotal study using colonoscopy as the reference method can be accessed at the following location: www.[employer]/results. Additional description of the Cologuard test process, warnings and precautions can be found at www.[employer]. Stool specimen (specimen) (Rectum) 01/27/2023 9:00 AM CDT 01/28/2023 1:53 PM CDT us Maite Warner MD URINE Final Result [facility] (CLIA #:[id number]) [place] [address], * XR DXA BONE DENSITY 2 SITES (12/31/2014 10:14 AM [facility]) Anatomical Region Laterality Modality Spine, HIPS, HIPL, HIPR Other Narrative 01/02/2015 9:10 AM [facility] Bone Density Interpretation Is scan interpretable? Lumbar spine Yes right hip Yes Indication for scan: INITIAL SCAN FOR SCREENING Prior Scan for comparison: NONE Skeletal sites scanned: L1-2, right femoral neck and right total hip Current therapy for bone loss: NONE Patient identified risk factors: BARIATRIC SURGERY, RACE and SEDENTARY LIFESTYLE Result at the lumbar spine: BMD (gm/cm2): 1.294 T score: 1.1 Result at the right femoral neck: BMD (gm/cm2): 0.830 T score: -1.5 Result at the right total hip: BMD (gm/cm2): 0.904 T score: -0.8 FRAX Risk Calculation: 10 year Total Fracture Risk: 7.9 % 10 year Hip Fracture Risk: <1 % Conclusion: OSTEOPENIA Recommendations: 1. Follow current guidelines for calcium and vitamin D intake. 2. Evaluate for fall prevention if indicated and regular exercise is encouraged. The National Osteoporosis Foundation recommends medical treatment for post-menopausal women and men >50 with: 1) prior hip or vertebral fracture; 2) T-score at spine or hip -2.5 or lower; or 3) when total fracture risk is 20% or greater or hip fracture risk is 3% or greater in the setting of low bone mass (T-score -1.0 to -2.5). CONSIDER ALL CLINICAL FACTORS IN MAKING TREATMENT DECISIONS. Repeat bone density is recommended in 3-5 years if clinically indicated. Yulyia Sky MD .................... 01/02/2015 9:09 AM Procedure Note Yuliya Sky MD - 01/02/2015 Bone Density Interpretation Is scan interpretable? Lumbar spine Yes right hip Yes Indication for scan: INITIAL SCAN FOR SCREENING Prior Scan for comparison: NONE Skeletal sites scanned: L1-2, right femoral neck and right total hip Current therapy for bone loss: NONE Patient identified risk factors: BARIATRIC SURGERY, RACE andSEDENTARY LIFESTYLE Result at the lumbar spine: BMD (gm/cm2): 1.294 T score: 1.1 Result at the right femoral neck: BMD (gm/cm2): 0.830 T score: -1.5 Result at the right total hip: BMD (gm/cm2): 0.904 T score: -0.8 FRAX Risk Calculation: 10 year Total Fracture Risk: 7.9 % 10 year Hip Fracture Risk: <1 % Conclusion: OSTEOPENIA Recommendations: 1. Follow current guidelines for calcium and vitamin D intake. 2. Evaluate for fall prevention if indicated and regular exercise isencouraged. The National Osteoporosis Foundation recommends medical treatment forpost- menopausal women and men >50 with: 1) prior hip or vertebral fracture; 2) T-score at spine or hip -2.5 or lower; or 3) when total fracture risk is 20% or greater or hip fracture risk is 3%or greater in the setting of low bone mass (T-score -1.0 to -2.5). CONSIDER ALL CLINICAL FACTORS IN MAKING TREATMENT DECISIONS. Repeat bone density is recommended in 3-5 years if clinically indicated. Yuliya Sky MD .................... 01/02/2015 9:09 AM us Arik Blackwell MD DEXA Final Result * ANTI HCV (06/27/2013 4:30 PM CDT) ANTI HCV Non-reacti ve [facility] Blood specimen (specimen) BLOOD SPECIMEN / Unknown 06/27/2013 4:30 PM CDT 06/27/2013 4:24 PM CDT us Maite Warner MD SEND OUTS Final Result [facility] INTERNAL ZIP [id number] [place] [address] [phone] from Last 3 Months or Most Recently Relevant to Health Maintenance Insurance MEDICARE PART A HB ONLY [facility] MR MEDICARE PPS WORKERS COMP Advance Directives * Full Code (Latest Code Status on File) Date Activated Date Inactivated Comments 03/17/2023 10:08 AM 03/17/2023 2:20 PM Question Answer Comments Code Status Discussion: Unable to Assess Preferences, Provider to review later * Full Code Date Activated Date Inactivated Comments 07/22/2021 3:10 PM 07/23/2021 12:29 PM Question Answer Comments Code Status Discussion: Discussed * Full Code Date Activated Date Inactivated Comments 11/25/2017 4:56 AM 11/30/2017 3:20 PM * Full Code Date Activated Date Inactivated Comments 09/16/2017 5:01 PM 09/20/2017 1:54 PM Question Answer Comments Code Status Discussion: Per Existing Order * Full Code Date Activated Date Inactivated Comments 09/16/2017 8:57 AM 09/16/2017 5:01 PM Question Answer Comments Code Status Discussion: Per Advance Care Plan Care Teams Street Car Mechanic Relationship Specialty Start Date End Date Maite Warner MD [address] [place] [id number] PCP - General 02/18/06 Simona Hunter MBBS [address] [place] [address] Consulting Physician Cardiovascular Disease 06/28/18 Helen Polk MBBS [address] [place] [address] Hematology and Oncology 03/09/23 Lu Patel RN [address] [place] [address] Nurse Navigator - Oncology Registered Nurse 03/09/23 Laura El RN [address] [place] [address] Nurse Navigator - Oncology Registered Nurse 11/28/23 Catie Reis ORTHOPEDICS PEDIATRIC PHYSICIAN [address] [place] [address] Nurse Practitioner Hematology and Oncology 12/12/23 Kristy Hooker MD [address] [place] [address] Medical Oncologist Hematology and Oncology 12/12/23 Jack Mccall LGSW [address] [place] [address] Kitchen Runner 12/12/23
--- OUTSIDE RECORDS SUMMARY | 2025-09-03 10:32 | XMS_ITS | Clinical Summary ---
Author Organization [facility] Address [address] [place] [address] Care Team Providers Care Art Education Professor Name Role Phone Maite Warner Primary Care Provider [phone] Allergies Active Allergy Reactions Criticality Noted Date Comments Ticlopidine Hives Medium 09/19/2017 Tolerates clopidogrel Medications metoprolol tartrate (LOPRESSOR) 50 MG tablet Take 50 mg by mouth 2 times daily 3 Active clopidogrel (PLAVIX) 75 MG tablet Take 75 mg by mouth daily 2 Active multivitamin, therapeutic (THERA-VIT) TABS tablet Take 1 tablet by mouth daily Active modafinil (PROVIGIL) 100 MG tablet Take 100 mg by mouth daily Active loperamide (IMODIUM) 2 MG capsule Take 2-4 mg by mouth daily as needed for diarrhea Active ibuprofen (ADVIL/MOTRIN) 200 MG tablet Take 200-400 mg by mouth 2 times daily as needed for pain Active acetaminophen (TYLENOL) 500 MG tablet Take 1,000 mg by mouth every 6 hours as needed for mild pain Active albuterol (PROAIR HFA/PROVENTIL HFA/VENTOLIN HFA) 108 (90 Base) MCG/ACT inhaler Inhale 1-2 puffs into the lungs every 6 hours as needed for shortness of breath, wheezing or cough Active aspirin 81 MG EC tablet Take 81 mg by mouth daily Active atorvastatin (LIPITOR) 40 MG tablet Take 40 mg by mouth every evening Active celecoxib (CELEBREX) 200 MG capsule Take 200 mg by mouth daily Active vitamin B-12 (CYANOCOBALAMIN) 2500 MCG sublingual tablet Take 2,500 mcg by mouth daily Active FLUoxetine (PROZAC) 20 MG capsule Take 60 mg by mouth daily Active furosemide (LASIX) 20 MG tablet Take 20 mg by mouth daily as needed (for volume overload - requires rarely) Active nitroGLYcerin (NITROSTAT) 0.[address] 0.4 mg under the tongue every 5 minutes as needed for chest pain For chest pain place 1 tablet under the tongue every 5 minutes for 3 doses. If symptoms persist 5 minutes after 1st dose call 911. Active oxybutynin ER (DITROPAN XL) 10 MG 24 hr tablet Take 10 mg by mouth daily as needed for bladder spasms Active spironolactone (ALDACTONE) 50 MG tablet Take 50 mg by mouth daily Active buPROPion (WELLBUTRIN XL) 300 MG 24 hr tablet Take 300 mg by mouth every morning Active traZODone (DESYREL) 100 MG tablet Take 100 mg by mouth At Bedtime Active HYDROcodone-acet aminophen (NORCO) 5-325 MG tabletIndication s:Closed fracture of distal end of left radius with routine healing, unspecified fracture morphology, subsequent encounter Take 1-2 tablets by mouth every 4 hours as needed for moderate to severe pain 15 tablet 3 Active Active Problems No known active problems Social History Tobacco Use Types Packs/Day Years Used Date Smoking Tobacco: Former Cigarettes Q uit: 1997 Smokeless Tobacco: Never Alcohol Use Standard Drinks/Week Comments Not Currently 0 (1 standard drink = 0.6 oz pur e alcohol) Adolescent Education Answer Date Record ed Getting School Help Needed Not on file 07/30 Comments No Sex and Gender Information Value Date Recorded Sex Assigned at Not on file Legal Sex Female 2:48 PM CDT Gender Identity Not on file Sexual Orientation Not on file Last Filed Vital Signs Vital Sign Reading Time Taken Comments Blood Pressure 127/62 03/18/2023 5:30 PM CDT Pulse 69 03/18/2023 5:50 PM CDT Temperature 36.3 C (97.3 F) 03/18/2023 5:30 PM CDT Respiratory Rate 18 03/18/2023 5:50 PM CDT Oxygen Saturation 96% 03/18/2023 5:50 PM CDT Inhaled Oxygen Concentration - - Weight 127 kg (280 lb) 03/18/2023 1:28 PM CDT Height 165.1 cm (5' 5) 03/18/2023 1:28 PM CDT Body Mass Index 46.59 03/18/2023 1:28 PM CDT Plan of Treatment Health Maintenance Due Date Last Done Comments ADVANCE CARE PLANNING 1950 ANNUAL REVIEW OF HM ORDERS 1949 CT COLONOGRAPHY 1950 DEXA 1950 DIABETES SCREENING 1950 FIT 1950 FLEX SIG 1949 LIPID 1949 COLONOSCOPY 1959 HEPATITIS C SCREENING 1967 LUNG CANCER SCREENING 1999 FALL RISK ASSESSMENT 2014 MEDICARE ANNUAL WELLNESS VISIT 2014 ZOSTER VACCINE (2 of 3) 12/09/2015 10/14/2015 DTAP/TDAP/TD VACCINE (2 - Td or Tdap) 07/14/2017 07/14/2007 RSV VACCINE (1 - 1-dose 75+ series) 2024 PHQ-2 (once per calendar year) 2024 COVID-19 VACCINE ( season) 2025 07/19/2022, 02/03/2022, 08/01/2021, Additional history exists INFLUENZA VACCINE (#1) 2025 , 07/28/2021, 07/30/2020, Additional history exists COLORECTAL CANCER SCREENING 01/27/2026 sDNA (Cologuard) 01/27/2026 01/27/2023 PNEUMOCOCCAL VACCINE 50+ YEARS Completed 05/25/2016, 12/31/2014 MAMMO SCREENING Discontinued 02/21/2023 HPV VACCINE (No Doses Required) Completed MENINGITIS VACCINE Aged Out No longer eligible based on patient's age to complete this topic Medical Devices Implanted Type Area Insurance Policy Clerk Device Identifier Shelf Expiration Date Model / Serial / Lot Imp Plate Syn Lcp Volar Dist Radius 54mm 6h Lt 111.631 - [id number] Implanted:Qty : 1 on 03/18/2023 by Bianca Baird MD at [facility] Metallic Hardware/Anc hor Left: Wrist SYNTHES-STRATEC 03/18/2027 [id number] 1 / / NA Imp Scr Syn Can T8 Stardrive Va-Lcp St 2.4x12mm 02.210.112 - [id number] Implanted:Qty : 1 on 03/18/2023 by Bianca Baird MD at [facility] Metallic Hardware/Anc hor Left: Wrist SYNTHES-STRATEC 03/18/2027 02.210.11 2 / / NA Imp Scr Syn Cortex T8 Stardrive 2.7x12mm Self Tap 202.872 - [id number] Implanted:Qty : 1 on 03/18/2023 by Bianca Baird MD at [facility] Metallic Hardware/Anc hor Left: Wrist SYNTHES-STRATEC 03/18/2027 202.872 / / NA Imp Scr Syn Cortex T8 Stardrive 2.7x14mm Self Tap 202.874 - [id number] Implanted:Qty : 1 on 03/18/2023 by Bianca Baird MD at [facility] Metallic Hardware/Anc hor Left: Wrist SYNTHES-STRATEC 03/18/2027 202.874 / / NA Imp Scr Syn Cortex T8 Stardrive Btrs Pin 1.8x18mm 02.210.088 - [id number] Implanted:Qty : 2 on 03/18/2023 by Bianca Baird MD at [facility] Metallic Hardware/Anc hor Left: Wrist SYNTHES-STRATEC 03/18/2027 02.210.08 8 / / NA Imp Scr Syn Cortex T8 Stardrive Btrs Pin 1.8x20mm 02.210.090 - [id number] Implanted:Qty : 3 on 03/18/2023 by Bianca Baird MD at [facility] Metallic Hardware/Anc hor Left: Wrist SYNTHES-STRATEC 03/18/2027 02.210.09 0 / / NA Imp Scr Syn Cortex T8 Stardrive Btrs Pin 1.8x22mm 02.210.092 - [id number] Implanted:Qty : 1 on 03/18/2023 by Bianca Baird MD at [facility] Metallic Hardware/Anc hor Left: Wrist SYNTHES-STRATEC 03/18/2027 02.210.09 2 / / NA Imp Wire Selena 1.69q462va 292.12 - [id number] Implanted:Qty : 1 on 03/18/2023 by Bianca Baird MD at [facility] Wire Left: Wrist SYNTHES-STRATEC 03/18/2027 292.12 / / NA Insurance [employer] MEDICARE ADVANTAGE [employer] MEDICARE ADVANTAGE Care Teams Art Education Professor Relationship Specialty Start Date End Date Maite Warner: [phone] [address] [place] [address] PCP - General Family Medicine 03/10/23
--- OUTSIDE RECORDS SUMMARY | 2025-09-03 10:32 | XMS_ITS | Clinical Summary ---
Author Organization [facility] Address [address] [address] Care Team Providers Care Grades 7 8 Tutor Name Role Phone Maite Warner MD Primary Care Provider [phone] Source Comments You are receiving this document as you are listed as the primary care provider,follow-up provider, or the patient has been referred to you for consultation.This is in compliance with the Medicare and[facility] EHR Incentive Program,which states Providers who transition their patient to another setting of careor provider of care or refers their patient to another provider of care shouldprovide summary care record for each transition of care or referral. [facility] Allergies Active Allergy Reactions Criticality Noted Date Comments Nsaids Nausea And Vomiting 12/26/2018 Medications FLUoxetine (PROZAC) 40 MG capsule Take 60 mg by mouth daily. Active traZODone (DESYREL) 100 MG tablet Take 100 mg by mouth daily at bedtime. Active lisinopril (ZESTRIL) 40 MG tablet Take 40 mg by mouth daily. Active metoprolol succinate (TOPROL XL) 50 MG 24 hour release tablet Take 50 mg by mouth daily. Active oxybutynin (DITROPANXL) 10 MG 24 hour release tablet Take 10 mg by mouth daily. Active simvastatin (ZOCOR) 40 MG tablet Take 40 mg by mouth daily at bedtime. 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 Gender Identity Not on file Sexual Orientation Not on file Plan of Treatment Health Maintenance Due Date Last Done Comments Colon Cancer Screening Plan Due 1950 Hep C Screening (Preventive Services) 1950 Medicare Annual Wellness Visit 1950 Mammogram 1950 Dexa 2014 Zoster/Shingles Vaccine (2 of 3) 12/09/2015 10/14/2015 DTaP/Tdap/Td Vaccine (2 - Tdap) 07/14/2017 07/14/2007 RSV Vaccine (1 - 1-dose 75+ series) 2024 COVID-19 Vaccine (3 - season) 2025 01/27/2021, 01/06/2021 Influenza Vaccine (#1) 2025 , 07/25/2019, 08/02/2018, Additional history exists Pneumococcal Vaccine 50+ Yrs Completed 05/25/2016, 12/31/2014 HepA Vaccine Aged Out No longer eligi ble based on patient's age to complete this topic HepB Vaccine Aged Out No longer eligi ble based on patient's age to complete this topic Hib Vaccine Aged Out No longer eligi ble based on patient's age to complete this topic IPV (Polio) Vaccine Aged Out No longe r eligible based on patient's age to complete this topic MCV4 Vaccine Aged Out No longer eligi ble based on patient's age to complete this topic Meningococcal B Vaccine Aged Out No l onger eligible based on patient's age to complete this topic Insurance MEDICARE SUPPLEMENT MEDICARE Care Teams Grades 7 8 Tutor Relationship Specialty Start Date End Date Maite Warner MD [address] [address] PCP - General Family Practice 11/03/18
--- NOTE | 2025-09-03 11:31 | CRLHL7_ITS ---
For Patients: As a result of the Century Cures Act, medical imaging exams and procedure reports are released immediately into your electronic medical record. You may view this report before your referring provider. If you have questions, please contact your health care provider. INDICATION: Headache and confusion. TECHNIQUE: CT head without contrast. COMPARISON: None. FINDINGS: Brain: No intra or extra-axial fluid collection, mass or edema. There is calcification seen along the right tentorium. Encephalomalacia seen within the right temporal lobe and basal ganglia. There is moderate periventricular white hypoattenuation likely chronic small vessel ischemic disease. Basal ganglia calcifications are present. The ventricles are prominent. Other: No displaced calvarial fracture. Visualized portions of the orbits, mastoids and paranasal sinuses are unremarkable. IMPRESSION: Senescent changes with no gross acute intracranial abnormality. Please note that all CT scans at this facility use dose modulation, iterative reconstruction, and/or weight-based dosing when appropriate to reduce radiation dose to as low as reasonably achievable. Dictated by Stuart Kumar MD @ 09/03/2025 12:53:40 PM (Electronically Signed)
--- NOTE | 2025-09-03 11:31 | CRLHL7_ITS ---
For Patients: As a result of the Century Cures Act, medical imaging exams and procedure reports are released immediately into your electronic medical record. You may view this report before your referring provider. If you have questions, please contact your health care provider. INDICATION: Upper abdominal pain. TECHNIQUE: CT abdomen and pelvis acquired with 112 cc Isovue 370 IV contrast. COMPARISON: None. FINDINGS: Lower chest: Unremarkable. Liver: Normal in size and attenuation. No suspicious masses. Gallbladder and bile ducts: Status post cholecystectomy.. Pancreas: No mass or inflammation. Spleen: Normal in size. No masses. Adrenal glands: Indeterminate soft tissue density nodule of right adrenal gland measures 2.9 cm and left adrenal gland measures 1.6 cm. Kidneys: Bilateral kidneys are normal. There is hypodense lesion at the upper pole of left kidney measuring 12 x 11 mm unit of with Hounsfield 43, likely related to complex/proteinaceous or hemorrhagic cyst.. No nephrolithiasis or hydronephrosis. Left renal cyst measures 1.8 x 2.2 cm. GI tract: No findings of bowel obstruction. Normal appendix. Vasculature: Abdominal aorta is normal in caliber. Advanced atherosclerosis. Lymph nodes: No lymphadenopathy. Peritoneum/Abdominal Wall: No free air or significant free fluid. Small fat containing umbilical hernia. Pelvis: Unremarkable. Bones: Posterior spinal fusion at L4-5 level with interbody spacer placement. Multilevel advanced degenerative changes of the spine. IMPRESSION: 1. No acute abnormality in the abdomen and pelvis. 2. Left renal cysts. One located at the upper pole is likely related to complex/proteinaceous/hemorrhagic cyst. 3. Indeterminate bilateral adrenal nodules, further assessment with nonemergent CT/MRI adrenal protocol should be considered if clinically required. Please note that all CT scans at this facility use dose modulation, iterative reconstruction, and/or weight-based dosing when appropriate to reduce radiation dose to as low as reasonably achievable. Dictated by Kenzie Henning MD @ 09/03/2025 12:57:54 PM (Electronically Signed)
--- NOTE | 2025-09-03 11:42 | ED.GENADULT ---
HPI - General Adult General Date Seen: 09/03/25 Chief complaint: Headache/Migraine Stated complaint: Headache Time Seen by Provider: 09/03/25 11:12 Source: patient Mode of arrival: ambulatory Limitations: no limitations History of Present Illness HPI narrative: Patient is a 74-year-old female with history of stroke presenting to the emergency department for headache and increased confusion. She lives home alone and has some residual memory issues from the stroke. Her daughter states past 3 days she has been acting weird and whatnot no time of day or what day of the week it is. That is unusual for her. They also state they believe she felt warm this morning but they did not check if she had a fever or not. Patient states she woke today and had a headache throughout top portion of her head and noticing some mild epigastric discomfort. Denies having a headache like this before. Denies any chest pain or shortness of breath. She still does feel weaker than normal in states she she will feel like she was too weak to walk to the bathroom. It is both her legs and not unilateral. She has been having issues with polyuria since her stroke but denies any changes to her urinary habits in the past few days. Family does state they have been around her lot recently because they recently moved her a week ago into another floor of her assisted living. No other concerns noted at this time. Related Data Home Medications ?Medication ?Instructions ?Recorded ?Confirmed albuterol sulfate 90 mcg/actuation 1 - 2 puff inhalation Q4H PRN 10/05/23 09/03/25 aerosol inhaler dyspnea aspirin 81 mg tablet,delayed 81 mg PO DAILY 10/05/23 09/03/25 release atorvastatin 40 mg tablet 40 mg PO DAILY 10/05/23 09/03/25 bupropion HCl 300 mg 24 hr tablet, 150 mg PO DAILY 10/05/23 09/03/25 extended release clopidogrel 75 mg tablet 75 mg PO DAILY 10/05/23 09/03/25 fluoxetine 20 mg capsule 40 mg PO QAM 10/05/23 09/03/25 metoprolol tartrate 50 mg tablet 50 mg PO BID 10/05/23 09/03/25 modafinil 100 mg tablet 100 mg PO DAILY 10/05/23 09/03/25 oxybutynin chloride 10 mg 10 mg PO DAILY 11/29/23 12/21/24 tablet,extended release 24 hr spironolactone 50 mg tablet 50 mg PO DAILY 10/05/23 09/03/25 trazodone 100 mg tablet 100 mg PO QPM 10/05/23 09/03/25 celecoxib 200 mg capsule 200 mg PO DAILY 09/03/25 09/03/25 diclofenac sodium 1 % topical gel 2 g topical QID 09/03/25 09/03/25 loperamide 2 mg capsule 2 mg PO Q6H PRN 09/03/25 09/03/25 nitroglycerin 0.4 mg sublingual mg sublingual 09/03/25 tablet Previous Rx's ?Medication ?Instructions ?Recorded acetaminophen 325 mg tablet 650 mg (2 x 325 mg) PO QID #120 10/07/23 tabs modafinil 100 mg tablet 100 mg PO DAILY #14 tabs 10/07/23 cephalexin 500 mg tablet 500 mg PO TID #21 tabs 10/27/24 cephalexin 500 mg tablet 500 mg PO QID #20 tabs 09/03/25 Allergies Allergy/AdvReac Type Severity Reaction Status Date / Time No Known Drug Allergies Allergy Verified 09/03/25 12:25 Review of Systems Status of ROS: Reports: 10 or more systems reviewed and unremarkable except as noted in History and below [facility] Medical History Spinal stenosis ?M48.00 - Spinal stenosis, site unspecified (ICD-10) CAD (coronary artery disease) ?I25.10 - Atherosclerotic heart disease of [place] coronary artery without angina pectoris (ICD-10) Sleep disorder ?G47.9 - Sleep disorder, unspecified (ICD-10) Venous insufficiency ?I87.2 - Venous insufficiency (chronic) (peripheral) (ICD-10) Coronary atherosclerosis ?I25.10 - Atherosclerotic heart disease of [place] coronary artery without angina pectoris (ICD-10) Depression ?F32.A - Depression, unspecified (ICD-10) CKD (chronic kidney disease) stage 2, GFR 60-89 ml/min ?N18.2 - Chronic kidney disease, stage 2 (mild) (ICD-10) Anemia, iron deficiency ?D50.9 - Iron deficiency anemia, unspecified (ICD-10) Thoracic aortic ectasia ?I77.810 - Thoracic aortic ectasia (ICD-10) Surgical History S/P coronary artery stent placement ?Z95.5 - Presence of coronary angioplasty implant and graft (ICD-10) S/P gastric bypass ?Z98.84 - Bariatric surgery status (ICD-10) Social History What is your current living situation?: I presently have a place to live Problems where you live: no known problems Problems where you live details: N/A In the past 12 months, utilities in danger of being shut off: no In past 12 months, lack of transportation kept you from medical appts, meetings, work, or getting things needed for daily living: no In the past 12 mos, have been you worried that your food would run out before you had money to buy more?: never true In the past 12 mos, the food you bought just didn't last and you didn't have money to buy more?: never true Highest level of school completed/degree received: Bachelor's degree Smoking Status: Former smoker Do you use any of these nicotine containing products: None How often do you have a drink containing alcohol: monthly or less How often do you have six or more drinks on one occasion: Never AUDIT-C Alcohol total score: 1 Non-prescribed substance use: denies use Caffeine: Yes How often does anyone, including family, friends and others, physically hurt you: never How often does anyone, including family, friends and others, insult or talk down to you: never How often does anyone, including family, friends and others, threaten you with harm: never How often does anyone, including family, friends and others, scream or curse at you: never service: No Exam Narrative: Exam Narrative: Const: Well-nourished, Well-developed, in no distress Eyes: PERRL, no conjunctival injection, and symmetrical lids HENT: Atraumatic external nose and ears. Moist mucous membranes. Neck: Symmetric, trachea midline, No thyromegaly. CVS: RRR, No murmurs or gallops. Peripheral pulses 2+ and equal in all extremities RESP: Unlabored respiratory effort. Clear to auscultation bilaterally. GI: Nontender/Nondistended, No rebound or guarding. MSK:Extremities w/o deformity, Normal Active ROM Skin: Warm, Dry. No rashes or lesions. Neuro: Normal Muscle tone, Cranial nerves 2-12 grossly intact, normal [id number], normal [id number], normal strength 5/5 upper lower extremities bilaterally, normal sensation upper and lower extremities bilaterally, normal rapid alternating movements. Psych: Awake, Alert, & Oriented x3. Appropriate mood and affect. Const: Vital Signs, click to edit/add: Vital Signs - 24 hr 09/03/25 10:31 09/03/25 10:32 09/03/25 10:36 Temperature 99.2 F Pulse Rate 70 72 Pulse Rate [Pulse Oximeter] 74 Respiratory Rate 16 Blood Pressure 130/78 Blood Pressure [Ri ght Upper Arm] 130/78 Pulse Oximetry 92 91 93 Oxygen Delivery Me thod Room Air 09/03/25 10:45 09/03/25 10:47 09/03/25 11:00 Temperature Pulse Rate 74 74 74 Pulse Rate [Pulse Oximeter] Respiratory Rate Blood Pressure 123/60 Blood Pressure [Ri ght Upper Arm] Pulse Oximetry 92 93 92 Oxygen Delivery Me thod 09/03/25 11:02 09/03/25 11:15 09/03/25 11:17 Temperature Pulse Rate 73 72 74 Pulse Rate [Pulse Oximeter] Respiratory Rate Blood Pressure 117/70 112/49 L Blood Pressure [Ri ght Upper Arm] Pulse Oximetry 92 94 95 Oxygen Delivery Me thod 09/03/25 11:30 09/03/25 11:32 09/03/25 11:33 Temperature Pulse Rate Pulse Rate [Pulse Oximeter] Respiratory Rate 28 H 19 18 Blood Pressure 119/62 Blood Pressure [Ri ght Upper Arm] Pulse Oximetry Oxygen Delivery Me thod 09/03/25 11:45 09/03/25 11:48 09/03/25 12:00 Temperature Pulse Rate Pulse Rate [Pulse Oximeter] Respiratory Rate 25 H 27 H 21 Blood Pressure 126/53 L Blood Pressure [Ri ght Upper Arm] Pulse Oximetry Oxygen Delivery Me thod 09/03/25 12:02 09/03/25 12:40 09/03/25 12:45 Temperature Pulse Rate 76 79 Pulse Rate [Pulse Oximeter] Respiratory Rate 24 29 H 24 Blood Pressure 113/52 L Blood Pressure [Ri ght Upper Arm] Pulse Oximetry 93 92 Oxygen Delivery Me thod 09/03/25 12:47 09/03/25 13:00 Temperature Pulse Rate 79 Pulse Rate [Pulse Oximeter] Respiratory Rate 25 H 24 Blood Pressure 119/56 L Blood Pressure [Ri ght Upper Arm] Pulse Oximetry 92 Oxygen Delivery Me thod Course Vital Signs Vital signs: Initial Vital Signs Pulse Rate 70 09/03/25 10:31 Pulse Oximetry 92 09/03/25 10:31 Vital Signs Pulse Rate 70 09/03/25 10:31 Pulse Oximetry 92 09/03/25 10:31 Temperature 99.2 F 09/03/25 10:36 Pulse Rate 79 09/03/25 12:47 Respiratory Rate 24 09/03/25 13:00 Blood Pressure 119/56 L 09/03/25 12:47 Pulse Oximetry 92 09/03/25 12:47 Oxygen Delivery Method Room Air 09/03/25 10:36 Medications Administered Medications: Discontinued Medications Generic Name Dose Route Start Last Admin Trade Name Freq PRN Reason Stop Dose Admin Ceftriaxone Sodium 1 gm/ 100 mls @ 200 mls/hr 09/03/25 13:16 09/03/25 14:02 Sodium Chloride IVPB 09/03/25 13:17 200 mls/hr ONCE ONE Administration Medical Decision Making [facility] Narrative Medical decision making narrative: Patient is a 74-year-old female presenting to the emergency department for weakness and confusion. And I exam she is not confused is answering all questions appropriately. The differential diagnosis of generalized weakness and confusion is broad and includes infection, electrolyte abnormalities, ACS, arrhythmia, hypoglycemia, electrolyte abnormality, respiratory failure, anemia, hypothyroidism, dehydration, medication induced etc. will order CBC, CMP, viral swabs, urinalysis, EKG, troponin. Will also CT scanned her head. For her abdominal pain is could be gastroenteritis, pancreatitis, gastric reflux. Will order lipase and CT scan of her abdomen pelvis for better evaluation. Patient's lab work returned with a white count of 16.81. Her last white blood cell count was elevated to. Unsure of this acutely elevated were chronic for her. Is neutrophil predominant. She does states she had a fever at home but did not get the objective measurement. Despite this I will order blood cultures and lactate to look for signs of sepsis. CMP shows no concerning abnormalities. Lipase is within normal limits. Sodium is very vaguely low 132. Urinalysis shows a clear UTI. Viral swabs negative. EKG and troponin show no acute concerning abnormalities. CT scan of her head interpreted by myself and the radiologist shows no acute concerning abnormalities. CT scan of the abdomen pelvis interpreted by myself and the radiologist show left renal cyst along with indeterminate bilateral adrenal nodules. She follow-up with this outpatient. No other abnormality seen. I spoke to the patient and her family and they would like to be discharged on antibiotics. Lactate within normal limits. She is safe for discharge. Cephalexin ordered as previous urinalysis shows pain sensitive infections the overall sensitive to 1st generation cephalosporin. I do believe her confusion is a combination of her previous memory issues from her stroke, UTI, and recent move causing some delirium. Lab Data Labs: Lab Results 09/03/25 09/03/25 09/03/25 Range/Units 11:15 11:31 11:36 WBC 16.81 H (4.50-11.00) K/uL RBC 4.09 (4.00-5.20) m/uL Hgb 12.6 (12.0-16.0) gm/dL Hct 38.9 (33.0-51.0) % MCV 95 (80-100) fL MCH 31 (26-34) pg MCHC 32 (32-36) gm/dL RDW Coeff of [place] 12.7 (11.5-15.5) % Plt Count 237 (140-440) K/uL Neut % (Auto) 81.0 H (42.0-72.0) % Lymph % (Auto) 11.4 L (20-44) % [place] % (Auto) 6.8 (0.0-11.0) % Eos % (Auto) 0.2 (0.0-7.0) % Baso % (Auto) 0.2 (0.0-3.0) % Neut # (Auto) 13.60 H (1.7-7.0) K/uL Lymph # (Auto) 1.90 (0.90-2.90) K/uL [place] # (Auto) 1.10 H (0.00-0.90) K/UL Eos # (Auto) 0.00 (0.00-0.50) K/uL Baso # (Auto) 0.00 (0.00-0.30) K/uL Abs Immat Gran (auto) 0.10 (0.00-0.30) K/uL Imm/Tot Granulo (auto) 0.4 % Sodium 132 L (135-149) mmol/L Potassium 4.2 (3.6-5.1) mmol/L Chloride 103 (96-114) mmol/L Carbon Dioxide 24 (20-32) mmol/L Anion Gap 5 L (7-15) mEq/L BUN 13 (7-30) mg/dL Creatinine 0.7 (0.5-1.5) mg/dL Estimated Creat Clear 43.74 Estimated GFR 90 ml/min Glucose 128 H (60-115) mg/dL Lactate (0.5-1.9) mmol/L Calcium 9.0 (8.4-10.6) mg/dL Magnesium 1.6 (1.5-2.6) mg/dL Total Bilirubin 1.1 (0.1-1.5) mg/dL AST 26 (12-35) U/L ALT 20 (4-35) U/L Alkaline Phosphatase 93 (40-150) U/L Troponin I < 0.01 (0.01-0.04) ng/mL Total Protein 6.7 (6.0-8.3) g/dL Albumin 4.0 (3.3-5.0) g/dL Lipase 48 (23-300) U/L Urine Color Yellow (Yellow) Urine Appearance Clear (Clear) Urine pH 5.0 (5.0-8.5) Ur Specific [place] 1.010 (1.000-1.030) Urine Protein Negative (Negative) Urine Glucose (UA) Negative (Negative) Urine Ketones Negative (Negative) Urine Blood Trace-intact A (Negative) Urine Nitrite Positive A (Negative) Urine Bilirubin Negative (Negative) Urine Urobilinogen 0.2 (0.2-1.0) Ur Leukocyte Esterase 2+ A (Negative) Urine RBC 2-5 A (0-2) Urine WBC 5-10 A (0-5) Ur Squamous Epith Cells Few (None-Few) Calcium Oxalate Crystal Moderate A (None) Urine Bacteria Moderate A (None) SARS-CoV-2 (PCR) Negative SARS-CoV-2 (Negative) Influenza Type A (PCR) Negative PCR FLU A (Negative) Influenza Type B (PCR) Negative PCR FLU B (Negative) RSV (PCR) Negative PCR RSV (Negative) Lab Acknowledgement POC Creatinine 0.8 (0.6-1.3) mg/dl 09/03/25 09/03/25 Range/Units 13:14 14:05 WBC (4.50-11.00) K/uL RBC (4.00-5.20) m/uL Hgb (12.0-16.0) gm/dL Hct (33.0-51.0) % MCV (80-100) fL MCH (26-34) pg MCHC (32-36) gm/dL RDW Coeff of [place] (11.5-15.5) % Plt Count (140-440) K/uL Neut % (Auto) (42.0-72.0) % Lymph % (Auto) (20-44) % [place] % (Auto) (0.0-11.0) % Eos % (Auto) (0.0-7.0) % Baso % (Auto) (0.0-3.0) % Neut # (Auto) (1.7-7.0) K/uL Lymph # (Auto) (0.90-2.90) K/uL [place] # (Auto) (0.00-0.90) K/UL Eos # (Auto) (0.00-0.50) K/uL Baso # (Auto) (0.00-0.30) K/uL Abs Immat Gran (auto) (0.00-0.30) K/uL Imm/Tot Granulo (auto) % Sodium (135-149) mmol/L Potassium (3.6-5.1) mmol/L Chloride (96-114) mmol/L Carbon Dioxide (20-32) mmol/L Anion Gap (7-15) mEq/L BUN (7-30) mg/dL Creatinine (0.5-1.5) mg/dL Estimated Creat Clear Estimated GFR ml/min Glucose (60-115) mg/dL Lactate 1.0 (0.5-1.9) mmol/L Calcium (8.4-10.6) mg/dL Magnesium (1.5-2.6) mg/dL Total Bilirubin (0.1-1.5) mg/dL AST (12-35) U/L ALT (4-35) U/L Alkaline Phosphatase (40-150) U/L Troponin I (0.01-0.04) ng/mL Total Protein (6.0-8.3) g/dL Albumin (3.3-5.0) g/dL Lipase (23-300) U/L Urine Color (Yellow) Urine Appearance (Clear) Urine pH (5.0-8.5) Ur Specific [place] (1.000-1.030) Urine Protein (Negative) Urine Glucose (UA) (Negative) Urine Ketones (Negative) Urine Blood (Negative) Urine Nitrite (Negative) Urine Bilirubin (Negative) Urine Urobilinogen (0.2-1.0) Ur Leukocyte Esterase (Negative) Urine RBC (0-2) Urine WBC (0-5) Ur Squamous Epith Cells (None-Few) Calcium Oxalate Crystal (None) Urine Bacteria (None) SARS-CoV-2 (PCR) (Negative) Influenza Type A (PCR) (Negative) Influenza Type B (PCR) (Negative) RSV (PCR) (Negative) Lab Acknowledgement Test Added POC Creatinine (0.6-1.3) mg/dl Imaging Data CT scan - head: Attestation: I have reviewed the pertinent imaging results. Radiologist's impression: Senescent changes with no gross acute intracranial abnormality. Please note that all CT scans at this facility use dose modulation, iterative reconstruction, and/or weight-based dosing when appropriate to reduce radiation dose to as low as reasonably achievable. Dictated by Stuart Kumra MD @ 09/03/2025 12:53:[address] scan abdomen and pelvis : Attestation: I have reviewed the pertinent imaging results. Radiologist's impression: 1. No acute abnormality in the abdomen and pelvis. 2. Left renal cysts. One located at the upper pole is likely related to complex/proteinaceous/hemorrhagic cyst. 3. Indeterminate bilateral adrenal nodules, further assessment with nonemergent CT/MRI adrenal protocol should be considered if clinically required. Please note that all CT scans at this facility use dose modulation, iterative reconstruction, and/or weight-based dosing when appropriate to reduce radiation dose to as low as reasonably achievable. Dictated by Kenzie Henning MD @ 09/03/2025 12:57:54 PM ECG Data Attestation: I personally reviewed and interpreted this ECG as follows: Prior ECG tracings: available for review Interpretation: Sinus rhythm with a rate of 73 beats per minute, normal intervals, normal axis, no ST or T-wave abnormalities. Appears similar to previous EKG on file under than deeper S waves in V5 and V6 and smaller R-waves on I and II Discharge Plan Discharge Clinical Impression: Urinary tract infection Qualifiers: Urinary tract infection type: acute cystitis Hematuria presence: without hematuria Qualified Code(s): N30.00 - Acute cystitis without hematuria Patient Disposition: Home, Self-Care Condition: Stable Instructions: Urinary Tract Infection in Older Adults (ED) Additional Instructions: Take the antibiotics as directed. I recommend close follow-up with your primary care provider. Of note on your CT scan of the abdomen pelvis there were incidental findings including a renal cyst and bilateral adrenal nodules. These should be followed up with your primary care provider to see if further imaging is necessary. Her increased confusion is likely combination of the UTI, baseline memory issues from her previous stroke, and her recent move. Prescriptions: New cephalexin 500 mg tablet 500 mg PO QID Qty: 20 0RF No Action atorvastatin 40 mg tablet 40 mg PO DAILY trazodone 100 mg tablet 100 mg PO QPM albuterol sulfate 90 mcg/actuation HFA aerosol inhaler 1 - 2 puff INHALATION Q4H PRN (Reason: dyspnea) fluoxetine 20 mg capsule 40 mg PO QAM spironolactone 50 mg tablet 50 mg PO DAILY bupropion HCl 300 mg tablet extended release 24 hr 150 mg PO DAILY oxybutynin chloride 10 mg tablet extended release 24hr 10 mg PO DAILY clopidogrel 75 mg tablet 75 mg PO DAILY metoprolol tartrate 50 mg tablet 50 mg PO BID modafinil 100 mg tablet 100 mg PO DAILY aspirin 81 mg tablet,delayed release (DR/EC) 81 mg PO DAILY acetaminophen 325 mg tablet 650 mg PO QID Qty: 120 0RF modafinil 100 mg tablet 100 mg PO DAILY Qty: 14 1RF celecoxib 200 mg capsule 200 mg PO DAILY nitroglycerin 0.4 mg tablet, sublingual sublingual diclofenac sodium 1 % gel 2 g topical QID Rx Instructions: apply to single elbow, wrist or hand; for hand includes palm/fingers/back of hand loperamide 2 mg capsule 2 mg PO Q6H PRN cephalexin 500 mg tablet 500 mg PO TID Qty: 21 0RF Follow Up/Referrals: Maite Warner MD [Primary Care Provider, Family Practice] Stand Alone Forms: MyHealth Info Instructions
[2025-09-03 11:43] LABS: Creatinine, Point-of-Care* 0.8 mg/dl (0.6-1.3)
[2025-09-03 11:47] LABS: Hematocrit* 38.9 % (33.0-51.0); Hemoglobin* 12.6 gm/dL (12.0-16.0); Immature Granulocytes Pct Auto 0.4 %; Mean Corpuscular HGB Conc 32 gm/dL (32-36); Mean Corpuscular Hemoglobin 31 pg (26-34); Mean Corpuscular Volume 95 fL (80-100); RDW Coefficient of Variation % 12.7 % (11.5-15.5); Red Blood Count* 4.09 m/uL (4.00-5.20); White Blood Count* 16.81 K/uL (4.50-11.00)
[2025-09-03 11:51] LABS: Immature Granulocytes Abs Auto 0.10 K/uL (0.00-0.30); Lymphocytes Absolute Auto 1.90 K/uL (0.90-2.90); Slide Review Reflex No
[2025-09-03 12:07] LABS: Albumin* 4.0 g/dL (3.3-5.0); Chloride* 103 mmol/L (96-114); Potassium* 4.2 mmol/L (3.6-5.1); Sodium* 132 mmol/L (135-149)
[2025-09-03 12:10] LABS: Alanine Aminotransferase* 20 U/L (4-35); Alkaline Phosphatase* 93 U/L (40-150); Anion Gap 5 mEq/L (7-15); Aspartate Amino Transferase* 26 U/L (12-35); Bilirubin Total* 1.1 mg/dL (0.1-1.5); Blood Urea Nitrogen* 13 mg/dL (7-30); Carbon Dioxide* 24 mmol/L (20-32); Creatinine* 0.7 mg/dL (0.5-1.5); Est. Creatinine Clearance* 43.74; Estimated Glomerular Filt Rate 90 ml/min; Total Protein* 6.7 g/dL (6.0-8.3)
[2025-09-03 12:11] LABS: Calcium* 9.0 mg/dL (8.4-10.6); Glucose* 128 mg/dL (60-115)
[2025-09-03 12:41] LABS: PCR FLU A Negative PCR FLU A (Negative); PCR FLU B Negative PCR FLU B (Negative); PCR RSV Negative PCR RSV (Negative); SARS PCR* Negative SARS-CoV-2 (Negative)
[2025-09-03 12:55] LABS: Appearance Urine Clear (Clear)
[2025-09-03] MEDS: cefTRIAXone 1 GM in 0.9 % SODIUM CHLORIDE Mini-bag 100 ML IVPB (14:02)
[2025-09-03 14:10] LABS: Lactate* 1.0 mmol/L (0.5-1.9)
== END 2025-09-03 15:16 | disposition home or self-care (01) ==
PROVIDERS: Family Medicine; Emergency Provider Student in an Organized Health Care Education/Training Program; PCP Family Medicine
DX: N39.0 Urinary tract infection, site not specified (principal)
CPT/HCPCS: 36415; 70450; 74177; 80053; 81001; 82565; 83605; 83690; 83735; 84484; 85025; 87040; 87086; 87631; 93005; 96365; 99284; 99285; J0696; Q9967